=== PATIENT | female | born 2000 | race African-American/Black ===

== ENCOUNTER 2020-09-23 22:53 | Emergency (ER) | payer OTHER, SELFPAY ==
[2020-09-23 22:57] VITALS: BP 164/96; PULSE 128; RESP 20; TEMP 35.9; O2SAT 99; BMI 30.9
--- NOTE | 2020-09-23 23:19 | XR_ITS ---
EXAMINATION: XR SHOULDER, LEFT CLINICAL INFORMATION: Left shoulder pain. Fall. COMPARISON: None TECHNIQUE: Four views of the left shoulder. FINDINGS: The bones and soft tissues are normal. No fracture. Glenohumeral and acromioclavicular alignment is anatomic with normal joint space. No abnormal soft tissue calcifications. XR/XR shoulder LT min 2V IMPRESSION: Normal left shoulder.
--- NOTE | 2020-09-23 23:30 | ED_ITS ---
HPI - Extremity Problem General Chief complaint: Extremity Injury, Upper Stated complaint: Shoulder Pain Time Seen by Provider: 09/23/20 23:07 Source: patient Mode of arrival: ambulatory Limitations: no limitations History of Present Illness HPI Narrative: Patient comes to the emergency room complaining of left-sided shoulder pain. Patient states 3 nights ago patient was walking her dog, the dog pulled her left arm hard and the patient tumbled. Patient states that since then the shoulder has become more are sored Related Data Allergies Allergy/AdvReac Type Severity Reaction Status Date / Time No Known Allergies Allergy Unverified 07/28/20 19:50 [No Known Allergies*] Review of Systems Review of Systems: Constitutional : No Weight loss, No Fever, No Chills, No Night Sweats, No Fatigue, No Malaise ENT/Mouth : No Hearing loss, No Ear Pain, No Nasal Congestion, No Sinus Pain, No Hoarseness, No sore throat, No Rhinorrhea, No Swallowing Difficulty Eyes: No Eye Pain, No Swelling, No Redness, No Foreign Body, No Discharge, No Vision Changes Cardiovascular : No Chest Pain, No SOB, No Dyspnea on Exertion, No Orthopnea, No Edema, No Palpitations Respiratory : No Cough, No Sputum, No Wheezing, No Smoke Exposure, No Dyspnea Gastrointestinal : No Nausea, No Vomiting, No Diarrhea, No Constipation, No abdominal Pain, No Hematochezia, No Melena Genitourinary : no irregular bleeding, No Dysuria, No Urinary Frequency, No Hematuria, No Urinary Incontinence, No Urgency, No Flank Pain, No Urinary Flow Changes, No Hesitancy Musculoskeletal : Patient complaining of left shoulder pain Skin : No Skin Lesions, No rash Neuro : No Weakness, No Numbness, No Paresthesias, No Loss of Consciousness, No Dizziness, No Headache Psych : No Anxiety/Panic, No Depression, No SI/HI/AH/VH, No Social Issues, Heme/Lymph: No Bruising, No Bleeding,No Lymphadenopathy Endocrine : No Polyuria, No Polydipsia, No Temperature Intolerance PMF Past Medical History Medical History No known health problems Social History Social History Advance Directives: No Advance Directives Information Provided: No Physical Exam Vital Signs: Vital Signs: Last Vital Signs Temp 96.6 F L 09/23/20 22:57 Pulse 128 H 09/23/20 22:57 Resp 20 09/23/20 22:57 BP 164/96 H 09/23/20 22:57 Pulse Ox 99 09/23/20 22:57 Body Mass Index 30.9 Appearance: Alert. Oriented X3. No acute distress. Eyes: Pupils equal, round and reactive to light. ENT: Pharynx normal. Neck: Normal inspection. Neck supple. No lymph nodes noted. No crepitus CVS: Normal heart rate and rhythm. Pulses normal. Normal S1 and S2 Respiratory: No respiratory distress. Breath sounds normal. No Wheezing. No rales Abdomen: Soft and nontender. No rigidity. No distention. good BS x4 Skin: Skin warm and dry. Normal skin color. Normal skin turgor. Extremities: No lower extremity edema. Patient is able to abduct the left arm to approximately 45 degrees, then it starts hurting and she can no longer abduct, patient complaining to pain to palpation over the shoulder and on her back and suprascapular area Neuro: Oriented X 3. No motor deficit. No sensory deficit. Moving all ext ermities. No slurred speech. Course Course Course Narrative: I discussed with the patient her x-ray, patient will likely need an MRI if she has no symptomatic improvement to rule out tendon tear versus rupture. At this time, rupture is not suspected. However patient will need advanced imaging. Patient does not have a primary care physician yet, therefore she will be given the phone number for Orthopedics MDM - Extremity (Nontraumatic) Imaging Data Shoulder x-ray: Radiologist's impression: The bones and soft tissues are normal. No fracture. Glenohumeral and acromioclavicular alignment is anatomic with normal joint space. No abnormal soft tissue calcifications. XR/XR shoulder LT min 2V IMPRESSION: Normal left shoulder. Discharge Plan Discharge Clinical Impression: Injury of shoulder, left, Other sprain of left shoulder joint, initial encounter Patient Disposition: Home, Self-Care Instructions: Rotator Cuff Injury (ED), Rotator Cuff Injury Exercises (DC) Additional Instructions: Please follow-up with orthopedics. Please follow-up with your primary care physician tomorrow. If you have any worsening or new symptoms, please return to the emergency room or call 911 Referrals: Robert Blackwood MD [Physician] - 2 days
[2020-09-23] MEDS: Ketorolac Tromethamine 60 MG/2 ML VIAL IM (23:44)
[2020-09-23 23:49] VITALS: BP 151/80; PULSE 116; RESP 16; O2SAT 99
== END 2020-09-23 23:56 | disposition home or self-care (01) ==
PROVIDERS: Emergency Provider Emergency Medicine
DX: S43.402A Unspecified sprain of left shoulder joint, initial encounter (principal); M25.512 Pain in left shoulder; X50.9XXA Other and unspecified overexertion or strenuous movements or postures, initial encounter; Y93.K1 Activity, walking an animal; Y92.480 Sidewalk as the place of occurrence of the external cause; Y99.9 Unspecified external cause status
CPT/HCPCS: 73030; 96372; 99284; J1885

== ENCOUNTER 2020-10-18 17:33 | Emergency (ER) | payer MEDICAID, SELFPAY ==
[2020-10-18 17:54] VITALS: BP 151/77; PULSE 118; RESP 18; TEMP 36.9; O2SAT 99; BMI 31.8
[2020-10-18 19:53] VITALS: BP 128/81; PULSE 109; RESP 18; TEMP 36.8; O2SAT 97
--- NOTE | 2020-10-18 19:57 | ED_ITS ---
HPI - Abdominal Pain General Chief Complaint: Abdominal Pain Stated Complaint: ABDOMINAL PAIN,VOMITING Time Seen by Provider: 10/18/20 19:47 Source: patient Mode of arrival: ambulatory Limitations: no limitations History of Present Illness HPI narrative: Patient presents to the ED for left lower quadrant abdominal pain, nausea, vomiting, and diarrhea. Patient states having symptoms for the past 2 days. Patient denies any vaginal discharge, vaginal bleeding, vaginal lesions, flank pain, dysuria, hematuria, fever, or chills. MD elicited complaint: abdominal pain Related Data Previous Rx's Medication Instructions Recorded cefpodoxime 100 mg PO Q12H #14 tab 10/19/20 naproxen 500 mg PO BID PRN #20 tab 10/19/20 Allergies Allergy/AdvReac Type Severity Reaction Status Date / Time No Known Allergies Allergy Unverified 07/28/20 19:50 [No Known Allergies*] Review of Systems Review of Systems Yes all other systems are reviewed and are negative Constitutional: Reports as per HPI and Reports no additional constitutional c omplaints Eyes: Reports as per HPI and Reports no additional eye complaints Reports system reviewed and no additional complaints, except as documented and Reports as per HPI Cardiovascular: Reports as per HPI and Reports no additional cardiovascular complaints Respiratory: Reports as per HPI and Reports no additional respiratory complaints Gastrointestinal: Reports as per HPI, Reports no additional gastrointestinal complaints, Reports abdominal pain, Reports diarrhea, Reports nausea and Reports vomiting Genitourinary: Reports no additional female genitourinary complaints, Reports as per HPI, Denies abnormal vaginal bleeding, Denies dysuria, Denies pelvic pain, Denies urinary incontinence, Denies urinary hesitancy and Denies urinary urgency Musculoskeletal: Reports no additional musculoskeletal complaints and Reports as per HPI Reports system reviewed and no additional complaints, except as documented and Reports as per HPI Psychiatric: Reports no additional psychiatric complaints and Reports as per HPI Physical Exam Vital Signs: Vital Signs: Last Vital Signs Temp 99.1 F 10/18/20 21:56 Pulse 120 H 10/18/20 21:56 Resp 18 10/18/20 21:56 BP 126/93 H 10/18/20 21:56 Pulse Ox 100 10/18/20 21:56 Body Mass Index 31.8 Const: General: cooperative, healthy appearing, comfortable, no acute distress, well developed, alert, awake and Physically active Orientation/consciousness: patient oriented x3 HENMT: Head: Yes normal to inspection and Yes No palpable skull fracture present Eyes: General: appearance normal, both eyes and all related structures Neck: Neck: Yes normal visual inspection, Yes full ROM, Yes no lymphadenopathy, Yes no meningeal signs, Yes trachea midline, Yes supple and No tender Chest: Chest palpation & inspection: normal inspection of the chest and normal palpation of entire chest wall Resp: Effort & Inspection: normal respiratory effort and able to speak in complete sentences Auscultation: clear to auscultation bilaterally Cardio: Jugular venous distension: no JVD Heart sounds: S1 normal heart sound present and S2 normal heart sound present GI: Inspection: Yes normal to inspection and No abdominal wall ecchymosis Palpation (GI): Soft to palpation, Firmness to palpation present (GI), Tenderness to palpation present (GI) in the LLQ, no guarding and not rigid : General: No CVA tenderness and Yes no CVA tenderness Back/Spine/Pelvis: Back: no CVA tenderness, No CVA tenderness and No back tenderness Skin: General skin exam: no rashes or lesions noted Neuro: General: patient oriented x3, gait normal, no meningeal signs and CN's II-XI intact bilaterally Cranial nerves: Yes CN's II-XII intact bilaterally Extrem: General: Yes normal to inspection and Yes full ROM Psych: Appearance: grossly normal, well kempt and not disheveled Course Course Course Narrative: patient will have blood work, , IV fluids, Zofran, and urinalysis to rule out . Patient also be soft COVID-19 this may be viral sequela. Reevaluation(s) Reevaluation #1: [place] [id number] [address] was sent for [address] scan to rule out any abdominal etiology. Unlikely pyelonephritis. Patient does not have any flank pain, fever, or chills. Patient has only left lower quadrant pain. UA positive for nitrates but negative for white blood cell or red blood cell count. Time: 22:34 Reevaluation #2: Patient's lactic acid is negative. Patient's CT scan came back normal. Patient is not toxic appearing. Patient is watching television and playing on phone. Patient does not have any flank pain to indicate pyeloneph ritis. Patient is safe for discharge. Patient will be discharged with antibiotics. COVID swab take about 4 days to come back. Patient does not need admission. Diagnosis is Gastroenteritis. Very unlikely UTI due to negative for WBC or RBCs and patient not having urinary symptoms. Due to nitrate in UA patient will be discharged with cefpodizme. history and physical exam does not indicate pyelonephritis. Time: 00:26 MDM - Abdominal Pain MDM Narrative Medical decision making narrative: UTI. Gastroenteritis Lab Data Result diagrams: 10/18/20 20:43 10/18/20 20:43 Labs: Lab Results 10/18/20 10/18/20 12 Range/Units 20:43 20:43 20:43 WBC 16.2 H (4.8-10.8) X10*3/uL RBC 5.11 (4.20-5.50) X10*6/uL Hgb 11.8 L (12.0-16.0) g/dl Hct 37.0 (37-47) % MCV 72.4 L (80-98) fL MCH 23.1 L (27.0-33.0) pg MCHC 31.9 (31.0-35.0) g/dl RDW 15.7 (11.0-16.0) % Plt Count 274 (160-400) X10*3/uL MPV 10.9 (9.4-12.3) fL Immature Gran % (Auto) 0.2 (0.0-0.4) % Neut % (Auto) 81.1 H (45-73) % Lymph % (Auto) 12.4 L (20-40) % [place] % (Auto) 6.0 (2-11) % Eos % (Auto) 0.1 (0-4) % Baso % (Auto) 0.2 (0-2) % Lymph # (Auto) 2.0 (1.2-4.9) X10*3/uL [place] # (Auto) 1.0 (0.1-1.2) X10*3/uL Eos # (Auto) 0.0 (0.0-0.4) X10*3/uL Baso # (Auto) 0.0 (0.0-0.2) X10*3/uL Abs Immat Gran (auto) 0.04 H (0.00-0.03) X10*3/uL Absolute Neuts (auto) 13.1 H (2.0-8.3) X10*3/uL Absolute Nucleated RBC 0.000 (0.0-0.012) X10*3/uL Nucleated RBC % (auto) 0.0 (0.0-0.2) /100WBC PT 15.4 H (10.8-13.0) SEC INR 1.3 H (0.9-1.1) APTT (24.1-38.0) SEC Sodium 137 (135-145) mmol/L Potassium 3.9 (3.3-5.1) mmol/l Chloride 103 (96-108) mmol/L Carbon Dioxide 25 (22-29) mmol/L Anion Gap 13 (12-20) BUN 7 L (9-16) mg/dL Creatinine 0.49 L (0.5-1.4) mg/dL Estim Creat Clear Calc 182.2 Estimated GFR > 60 Random Glucose 91 (60-115) mg/dL Lactic Acid (0.5-2.0) mmol/L Calcium 9.2 (8.4-10.2) mg/dL Ferritin (10-122) ng/mL Total Bilirubin 0.9 (0.0-1.0) mg/dL Direct Bilirubin 0.5 (0.0-0.5) mg/dL AST 29 (5-31) U/L ALT 39 H (0-31) U/L Alkaline Phosphatase 207 H (39-117) U/L Lactate Dehydrogenase (122-220) U/L Total Protein 7.4 (6.5-8.0) g/dL Albumin 4.2 (3.5-5.0) g/dL Procalcitonin ng/mL Beta HCG, Quant < 2 mIU/mL Urine Color Urine Appearance Urine pH (5.0-8.0) Ur Specific [place] (1.005-1.025) Urine Protein (NEG-TRACE) MG/DL Urine Glucose (UA) (NEG) MG/DL Urine Ketones (NEG) MG/DL Urine Blood (NEG) Urine Nitrite (NEG) Ur Leukocyte Esterase (NEG) Urine RBC (0) /HPF Urine WBC (0-4) /HPF Ur Squamous Epith Cells /LPF Urine Bacteria /LPF 10/18/20 10/18/20 10/18/20 Range/Units 20:43 20:43 20:43 WBC (4.8-10.8) X10*3/uL RBC (4.20-5.50) X10*6/uL Hgb (12.0-16.0) g/dl Hct (37-47) % MCV (80-98) fL MCH (27.0-33.0) pg MCHC (31.0-35.0) g/dl RDW (11.0-16.0) % Plt Count (160-400) X10*3/uL MPV (9.4-12.3) fL Immature Gran % (Auto) (0.0-0.4) % Neut % (Auto) (45-73) % Lymph % (Auto) (20-40) % [place] % (Auto) (2-11) % Eos % (Auto) (0-4) % Baso % (Auto) (0-2) % Lymph # (Auto) (1.2-4.9) X10*3/uL [place] # (Auto) (0.1-1.2) X10*3/uL Eos # (Auto) (0.0-0.4) X10*3/uL Baso # (Auto) (0.0-0.2) X10*3/uL Abs Immat Gran (auto) (0.00-0.03) X10*3/uL Absolute Neuts (auto) (2.0-8.3) X10*3/uL Absolute Nucleated RBC (0.0-0.012) X10*3/uL Nucleated RBC % (auto) (0.0-0.2) /100WBC PT (10.8-13.0) SEC INR (0.9-1.1) APTT 38.1 H (24.1-38.0) SEC Sodium (135-145) mmol/L Potassium (3.3-5.1) mmol/l Chloride (96-108) mmol/L Carbon Dioxide (22-29) mmol/L Anion Gap (12-20) BUN (9-16) mg/dL Creatinine (0.5-1.4) mg/dL Estim Creat Clear Calc Estimated GFR Random Glucose (60-115) mg/dL Lactic Acid (0.5-2.0) mmol/L Calcium (8.4-10.2) mg/dL Ferritin 185 H (10-122) ng/mL Total Bilirubin (0.0-1.0) mg/dL Direct Bilirubin (0.0-0.5) mg/dL AST (5-31) U/L ALT (0-31) U/L Alkaline Phosphatase (39-117) U/L Lactate Dehydrogenase 224 H (122-220) U/L Total Protein (6.5-8.0) g/dL Albumin (3.5-5.0) g/dL Procalcitonin < 0.02 ng/mL Beta HCG, Quant mIU/mL Urine Color Urine Appearance Urine pH (5.0-8.0) Ur Specific [place] (1.005-1.025) Urine Protein (NEG-TRACE) MG/DL Urine Glucose (UA) (NEG) MG/DL Urine Ketones (NEG) MG/DL Urine Blood (NEG) Urine Nitrite (NEG) Ur Leukocyte Esterase (NEG) Urine RBC (0) /HPF Urine WBC (0-4) /HPF Ur Squamous Epith Cells /LPF Urine Bacteria /LPF 10/18/20 10/18/20 Range/Units 20:50 22:09 WBC (4.8-10.8) X10*3/uL RBC (4.20-5.50) X10*6/uL Hgb (12.0-16.0) g/dl Hct (37-47) % MCV (80-98) fL MCH (27.0-33.0) pg MCHC (31.0-35.0) g/dl RDW (11.0-16.0) % Plt Count (160-400) X10*3/uL MPV (9.4-12.3) fL Immature Gran % (Auto) (0.0-0.4) % Neut % (Auto) (45-73) % Lymph % (Auto) (20-40) % [place] % (Auto) (2-11) % Eos % (Auto) (0-4) % Baso % (Auto) (0-2) % Lymph # (Auto) (1.2-4.9) X10*3/uL [place] # (Auto) (0.1-1.2) X10*3/uL Eos # (Auto) (0.0-0.4) X10*3/uL Baso # (Auto) (0.0-0.2) X10*3/uL Abs Immat Gran (auto) (0.00-0.03) X10*3/uL Absolute Neuts (auto) (2.0-8.3) X10*3/uL Absolute Nucleated RBC (0.0-0.012) X10*3/uL Nucleated RBC % (auto) (0.0-0.2) /100WBC PT (10.8-13.0) SEC INR (0.9-1.1) APTT (24.1-38.0) SEC Sodium (135-145) mmol/L Potassium (3.3-5.1) mmol/l Chloride (96-108) mmol/L Carbon Dioxide (22-29) mmol/L Anion Gap (12-20) BUN (9-16) mg/dL Creatinine (0.5-1.4) mg/dL Estim Creat Clear Calc Estimated GFR Random Glucose (60-115) mg/dL Lactic Acid 1.0 (0.5-2.0) mmol/L Calcium (8.4-10.2) mg/dL Ferritin (10-122) ng/mL Total Bilirubin (0.0-1.0) mg/dL Direct Bilirubin (0.0-0.5) mg/dL AST (5-31) U/L ALT (0-31) U/L Alkaline Phosphatase (39-117) U/L Lactate Dehydrogenase (122-220) U/L Total Protein (6.5-8.0) g/dL Albumin (3.5-5.0) g/dL Procalcitonin ng/mL Beta HCG, Quant mIU/mL Urine Color YELLOW Urine Appearance CLEAR Urine pH 6.5 (5.0-8.0) Ur Specific [place] 1.025 (1.005-1.025) Urine Protein TRACE (NEG-TRACE) MG/DL Urine Glucose (UA) NEG (NEG) MG/DL Urine Ketones >=80 (NEG) MG/DL Urine Blood TRACE (NEG) Urine Nitrite POS H (NEG) Ur Leukocyte Esterase NEG (NEG) Urine RBC 0-2 (0) /HPF Urine WBC 0 (0-4) /HPF Ur Squamous Epith Cells 1+ /LPF Urine Bacteria TRACE /LPF Discharge Plan Discharge Clinical Impression: Gastroenteritis, UTI (urinary tract infection) Patient Disposition: Home, Self-Care Instructions: Urinary Tract Infection in Women (ED), Gastroenteritis (ED) Additional Instructions: return to the ED immediately for worsening abdominal pain, flank pain, fever, chills, nausea, vomiting, or any other concerning symptoms. Please follow-up with the PCP. COVID test come back positive, recommend 14 days self-isolation. Prescriptions: New naproxen 500 mg tablet 500 mg PO BID PRN (Reason: pain) Qty: 20 RF: 0 cefpodoxime 100 mg tablet 100 mg PO Q12H Qty: 14 RF: 0 Stand Alone Forms: Work/School Release Interventions: ED Discharge Assessment Last Done: 10/19/20 00:50 Discharge Date/Time: 10/19/20 00:51 Print Language: [place]an COUNTS INCLUDE 234 BEDS AT THE [facility] Past Medical History Medical History No known health problems Social History Social History Alcohol intake: never Smoking Status: Never smoker Use of substances other than those prescribed or required for medical reasons: No Substance Use Type: Marijuana Advance Directives: No Advance Directives Information Provided: No
[2020-10-18 20:33] VITALS: BP 125/62; PULSE 114; RESP 16; TEMP 37.2; O2SAT 98
--- NOTE | 2020-10-18 20:34 | PC.NURSE ---
P t appears well. No active vomiting. describes vomiting x 4-5 today since 3am. Skin pwd. steady on feet to br. uses contraception, moist mm. abd is tender in LLQ. Normal BM yesterday.
[2020-10-18] MEDS: ondansetron HCL 4 MG/2 ML VIAL IVPUSH (20:50)
[2020-10-18] MEDS: 0.9 % Sodium Chloride 1,000 ML 999 ML IVCONT (20:50)
[2020-10-18 20:53] LABS: Basophils Percent Auto 0.2 % (0-2); Eosinophils Percent Auto 0.1 % (0-4); Hemoglobin 11.8 g/dl (12.0-16.0); Imm Gran Abs Auto 0.04 X10*3/uL (0.00-0.03); Imm Gran Pct Auto 0.2 % (0.0-0.4); Lymphocytes Percent Auto 12.4 % (20-40); Mean Corpuscular HGB Conc 31.9 g/dl (31.0-35.0); Mean Corpuscular Hemoglobin 23.1 pg (27.0-33.0); Mean Corpuscular Volume 72.4 fL (80-98); Mean Platelet Volume 10.9 fL (9.4-12.3); Neutrophils Absolute Auto 13.1 X10*3/uL (2.0-8.3); Neutrophils Percent Auto 81.1 % (45-73); Platelet Count 274 X10*3/uL (160-400); Red Blood Count 5.11 X10*6/uL (4.20-5.50); Red Cell Distribution Width 15.7 % (11.0-16.0); White Blood Count 16.2 X10*3/uL (4.8-10.8)
[2020-10-18 20:54] LABS: MANUAL DIFF FLAG NO
[2020-10-18 20:59] LABS: Glucose Urine UA NEG (NEG); Leukocyte Esterase Urine NEG (NEG); Nitrite Urine POS (NEG); PH 6.5 (5.0-8.0); Specific Gravity - Urine 1.025 (1.005-1.025); Urine Blood TRACE (NEG); Urine Ketones >=80 MG/DL (NEG); Urine Protein TRACE MG/DL (NEG-TRACE)
[2020-10-18 21:01] LABS: Appearance Urine CLEAR; Color Urine YELLOW
[2020-10-18 21:02] LABS: INTERNATIONAL NORM RATIO 1.3 (0.9-1.1); Prothrombin Time 15.4 SEC (10.8-13.0)
[2020-10-18 21:04] LABS: Partial Thromboplastin Time 38.1 SEC (24.1-38.0)
[2020-10-18 21:08] LABS: Bacteria Urine TRACE /LPF; RBC Urine 0-2 /HPF (0); Squamous Epithelial Cell Urine 1+ /LPF; WBC Urine 0 /HPF (0-4)
[2020-10-18 21:24] LABS: Lactate Dehydrogenase 224 U/L (122-220)
[2020-10-18 21:25] LABS: Alanine Aminotransferase 39 U/L (0-31); Albumin Level 4.2 g/dL (3.5-5.0); Alkaline Phosphatase 207 U/L (39-117); Anion Gap 13 (12-20); Aspartate Amino Transferase 29 U/L (5-31); Bilirubin Direct 0.5 mg/dL (0.0-0.5); Bilirubin Total 0.9 mg/dL (0.0-1.0); Blood Urea Nitrogen 7 mg/dL (9-16); Calcium 9.2 mg/dL (8.4-10.2); Carbon Dioxide 25 mmol/L (22-29); Chloride 103 mmol/L (96-108); Creatinine Clr Calc Pharmacy 182.2; Estimated Glomerular Filt Rate > 60; Glucose Random 91 mg/dL (60-115); Potassium 3.9 mmol/l (3.3-5.1); Sodium 137 mmol/L (135-145); Total Protein 7.4 g/dL (6.5-8.0)
[2020-10-18 21:33] LABS: HCG Quantitative < 2 mIU/mL
--- NOTE | 2020-10-18 21:42 | CT_ITS ---
EXAMINATION: CT ABDOMEN AND PELVIS WITH CONTRAST CLINICAL INFORMATION: Left lower quadrant pain diverticulitis COMPARISON: None TECHNIQUE: Multidetector volumetric images were obtained from the superior aspect of the liver through the pubic symphysis following administration 85 mL of Omnipaque 350 intravenous contrast. Sagittal and coronal reformatted images were obtained on the technologist's workstation. Oral contrast: No This CT examination was performed using dose optimization techniques as appropriate, variously including the following: *Automated exposure control *Adjustment of mA and/or kV according to patient size (this includes techniques or standardized protocols for targeted exams where dose is matched to indication/reason for exam; i.e. extremities or head) *Use of iterative reconstruction technique DLP: 681 mGy-cm FINDINGS: LUNG BASES: The visualized lung bases are unremarkable. LIVER, GALLBLADDER, AND BILIARY TREE: The liver is normal in size, shape, and attenuation. No focal hepatic lesion or biliary ductal dilatation is present. The gallbladder is unremarkable with no evidence of radiopaque gallstones, gallbladder wall thickening, or obvious pericholecystic inflammatory changes. PANCREAS: Unremarkable. SPLEEN: Unremarkable. ADRENAL GLANDS: Unremarkable. KIDNEYS AND URETERS: The kidneys are normal in size, shape, and attenuation. No hydronephrosis, hydroureter, or calculi seen. No perinephric stranding. BLADDER: Unremarkable. GASTROINTESTINAL TRACT: The small and large bowel are unremarkable. The appendix is unremarkable. ABDOMINAL WALL: No significant hernia is appreciated. LYMPH NODES: Normal. VASCULAR: Unremarkable. PELVIC VISCERA: Unremarkable. OSSEOUS STRUCTURES: Unremarkable. CT/CT abdomen pelvis w con IMPRESSION: Normal exam. No evidence for diverticulitis.
[2020-10-18] MEDS: 0.9 % Sodium Chloride 1,000 ML 1000 ML IVCONT (21:55)
--- NOTE | 2020-10-18 21:55 | PC.NURSE ---
reports feeling better. nausea is improved
[2020-10-18 21:56] VITALS: BP 126/93; PULSE 120; RESP 18; TEMP 37.3; O2SAT 100
[2020-10-18 22:06] LABS: Procalcitonin < 0.02 ng/mL
[2020-10-18] MEDS: iohexoL 350 MG/ML 100 ML INFUS..BTL IV (22:22)
[2020-10-18] MEDS: cefTRIAXone sodium 1 GM in 0.9 % Sodium Chloride 50 ML IV (22:53)
[2020-10-19 00:49] LABS: Ferritin 185 ng/mL (10-122)
== END 2020-10-19 00:51 | disposition home or self-care (01) ==
PROVIDERS: Physician Assistant; Emergency Provider Internal Medicine
DX: K52.9 Noninfective gastroenteritis and colitis, unspecified (principal); N39.0 Urinary tract infection, site not specified; F12.90 Cannabis use, unspecified, uncomplicated; Z20.828 Contact with and (suspected) exposure to other viral communicable diseases
CPT/HCPCS: 36415; 74177; 80053; 80076; 81001; 82248; 82728; 83605; 83615; 84145; 84702; 85025; 85610; 85730; 87040; 87086; 87088; 87186; 96361; 96365; 96374; 99284; J0696; J2405; Q9967; U0003

== ENCOUNTER 2020-12-28 03:51 | Emergency (ER) | payer MEDICAID, SELFPAY ==
[2020-12-28 04:40] VITALS: BP 147/87; PULSE 104; RESP 16; TEMP 36.5; O2SAT 98
--- NOTE | 2020-12-28 04:45 | ED.URI ---
HPI - URI/Sore Throat General Chief Complaint: Upper Respiratory Symptoms Stated Complaint: SORE THROAT Time Seen by Provider: 12/28/20 04:37 Source: patient Mode of arrival: ambulatory Limitations: no limitations History of Present Illness HPI Narrative: 20 yo female with sore throat x 3 days, can swallow, handling secretions no other complaints MD elicited complaint: sore throat Onset (ago): day(s) (3) Consistency: constant Severity: moderate Able to tolerate fluids by mouth: Yes Exacerbating factors: swallowing Relieving factors: nothing Associated symptoms: voice changes Treatments prior to arrival: none Related Data Previous Rx's Medication Instructions Recorded cefpodoxime 100 mg PO Q12H #14 tab 10/19/20 naproxen 500 mg PO BID PRN #20 tab 10/19/20 amoxicillin 500 mg PO BID 7 Days #14 cap 12/28/20 Allergies Allergy/AdvReac Type Severity Reaction Status Date / Time No Known Allergies Allergy Verified 12/28/20 04:45 [No Known Allergies*] Review of Systems Review of Systems: Constitutional : No Weight loss, No Fever, No Chills ENT/Mouth : pos sore throat, No Rhinorrhea Eyes: No Eye Pain, No Swelling, No Redness Cardiovascular : No Chest Pain, No SOB Respiratory : No Cough, No Sputum, No Wheezing Gastrointestinal : No Nausea, No Vomiting, No Diarrhea, No Constipation, No abdominal Pain Skin : No Skin Lesions, No rash Neuro : No Weakness, No Numbness, No Dizziness, No Headache Psych : No Anxiety/Panic, No Depression Heme/Lymph: No Bruising, No Bleeding, pos Lymphadenopathy PMFSH Past Medical History Attestation statement: The following information was validated with the patient. Medical History No known health problems Social History Social History Alcohol intake: never Smoking Status: Never smoker Substance Use Type: Marijuana Advance Directives: No Physical Exam Vital Signs: Vital Signs: Last Vital Signs Temp 97.7 F 12/28/20 04:40 Pulse 104 H 12/28/20 04:40 Resp 16 12/28/20 04:40 BP 147/87 H 12/28/20 04:40 Pulse Ox 98 12/28/20 04:40 Body Mass Index 30.0 Appearance: Alert. Oriented X3. No acute distress. Eyes: Pupils equal, round and reactive to light. ENT: Pharynx erythema with moderate tonsil swelling, mild exudates, tolerating secretions, bilateral anterior cervical LAD - moderate bilateral Neck: Normal inspection. Neck supple. CVS: Normal heart rate and rhythm. Pulses normal. Respiratory: No respiratory distress. Breath sounds normal. Abdomen: Soft and nontender. Skin: Skin warm and dry. Normal skin color. Normal skin turgor. Extremities: No lower extremity edema. No calf ttp Neuro: Oriented X 3. No motor deficit. No sensory deficit. 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, able to swallow, tonsils are not touching - will given NSAIDs, dexamethasone and start on amoxicillin Lab Data Labs: Lab Results 12/28/20 Range/Units 04:44 COVID-19 (LINDA) Negative (Negative) COVID-19 Clin Com See Note Discharge Plan Discharge Clinical Impression: Acute tonsillitis Qualifiers: Pharyngitis/tonsillitis etiology: unspecified etiology Qualified Code(s): J03.90 - Acute tonsillitis, unspecified Patient Disposition: Home, Self-Care Instructions: Tonsillitis (ED) Additional Instructions: return to ED for any worsening symptoms or concerns Prescriptions: New amoxicillin 500 mg capsule 500 mg PO BID 7 Days Qty: 14 RF: 0 No Action naproxen 500 mg tablet 500 mg PO BID PRN (Reason: pain) Qty: 20 RF: 0 cefpodoxime 100 mg tablet 100 mg PO Q12H Qty: 14 RF: 0 Referrals: [facility] [Primary Care Provider] - 2 days (if not better)
[2020-12-28] MEDS: dexAMETHasone sod phosphate 4 MG/ML VIAL 10 MG IV (04:50)
[2020-12-28] MEDS: Amoxicillin 500 MG CAPSULE PO (04:50)
[2020-12-28] MEDS: Ibuprofen Oral Susp 200 MG/10 ML ORAL.SUSP 600 MG PO (04:51)
--- NOTE | 2020-12-28 04:53 | PC.NURSE ---
Swabs obtained by and sent for analysis. Pt medicated per MAR. Continue to monitor.
[2020-12-28 05:08] LABS: COVID-19 Test Negative (Negative); IDNOW Serial# 9DD0AD1C
== END 2020-12-28 05:48 | disposition home or self-care (01) ==
PROVIDERS: Emergency Provider Emergency Medicine
DX: J03.90 Acute tonsillitis, unspecified (principal); Z20.822 Contact with and (suspected) exposure to COVID-19; Z79.899 Other long term (current) drug therapy
CPT/HCPCS: 36415; 87071; 87147; 87635; 87880; 99283; J1100

== ENCOUNTER 2021-02-15 07:33 | Emergency (ER) | payer OTHER, SELFPAY ==
--- NOTE | ~2021-02-15 | US_ITS ---
EXAMINATION: US OBSTETRICAL ULTRASOUND CLINICAL INFORMATION: Positive test. Last menstrual period January 08, 2021 with estimated gestational age of 5 weeks 3 days. Left lower quadrant pain. Rule out cyst/ectopic. COMPARISON: None. LMP: January 08, 2021. Gestational age by maternal dates is 5 weeks 3 days. Estimated date of delivery by maternal dates is October 15, 2021. TECHNIQUE: Transabdominal and transvaginal OB ultrasound FINDINGS: There is what appears to be a small gestational sac present measuring 2 x 2 x 2 mm in size which would correspond to a gestational age of 4 weeks 4 days. No yolk sac is identified. No pole is seen. MATERNAL ADNEXA: The right maternal ovary measures 4.1 x 2.4 x 1.9 cm. Corpus luteal cyst is seen measuring 1.5 x 1.3 x 1.8 cm in size. The left maternal ovary measures 4.0 x 2.6 x 1.8 cm. There is a simple cyst measuring 2.2 x 1.6 x 1.8 cm in size. There is no significant maternal adnexal mass. There is a small amount of free fluid within the cul-de-sac. US/US OB <= 14 weeks fetus IMPRESSION: Question small 2 mm gestational sac which would correspond with a gestational age of 4 weeks 4 days. No suspicious adnexal mass.
--- NOTE | ~2021-02-15 | US_ITS ---
EXAMINATION: US OBSTETRICAL ULTRASOUND CLINICAL INFORMATION: Positive test. Last menstrual period January 08, 2021 with estimated gestational age of 5 weeks 3 days. Left lower quadrant pain. Rule out cyst/ectopic. COMPARISON: None. LMP: January 08, 2021. Gestational age by maternal dates is 5 weeks 3 days. Estimated date of delivery by maternal dates is October 15, 2021. TECHNIQUE: Transabdominal and transvaginal OB ultrasound FINDINGS: There is what appears to be a small gestational sac present measuring 2 x 2 x 2 mm in size which would correspond to a gestational age of 4 weeks 4 days. No yolk sac is identified. No pole is seen. MATERNAL ADNEXA: The right maternal ovary measures 4.1 x 2.4 x 1.9 cm. Corpus luteal cyst is seen measuring 1.5 x 1.3 x 1.8 cm in size. The left maternal ovary measures 4.0 x 2.6 x 1.8 cm. There is a simple cyst measuring 2.2 x 1.6 x 1.8 cm in size. There is no significant maternal adnexal mass. There is a small amount of free fluid within the cul-de-sac. US/US OB transvaginal IMPRESSION: Question small 2 mm gestational sac which would correspond with a gestational age of 4 weeks 4 days. No suspicious adnexal mass.
[2021-02-15 07:41] VITALS: BP 152/92; PULSE 127; RESP 16; TEMP 37; O2SAT 99; BMI 29.7
--- NOTE | 2021-02-15 08:53 | PC.NURSE ---
pt states that she found out that she was yesterday. she did 3 home test. c/o l side 06/20 abd pain with nausea. pt seen by md aware of plan of care.
--- NOTE | 2021-02-15 08:55 | PC.NURSE ---
pt states lmp was 01/08/21
--- NOTE | 2021-02-15 09:00 | ED_ITS ---
HPI - General Adult General Chief complaint: Abdominal Pain Stated complaint: abd pain, Time Seen by Provider: 02/15/21 08:34 Source: patient Mode of arrival: ambulatory Limitations: no limitations History of Present Illness HPI narrative: 20-year-old female who presents emergency department for evaluation of possible and abdominal pain. The patient states that her last menstrual period was on January 08, 2021 and she took a home test which was positive. The patient states that she woke up this morning and had a slight, sharp pain located in her left lower quadrant of her abdomen. She went to work and the pain got worse. She states the pain is intermittent and is now 8/10. She states she has a history of ovarian cyst in the pain feels similar to her ovarian cyst that she has had in the past. She states that yesterday she did have a fever of 102? F. she has had urinary frequency with no dysuria. She denied cough, chest pain, shortness of breath, dyspnea on exertion, nausea, vomiting or diarrhea. The patient works as a [employer]. She states that she headache COVID-19 infection early last year. She has not received a vaccination for COVID-19. Related Data Previous Rx's Medication Instructions Recorded cefpodoxime 100 mg PO Q12H #14 tab 10/19/20 naproxen 500 mg PO BID PRN #20 tab 10/19/20 amoxicillin 500 mg PO BID 7 Days #14 cap 12/28/20 Allergies Allergy/AdvReac Type Severity Reaction Status Date / Time No Known Allergies Allergy Verified 12/28/20 04:45 [No Known Allergies*] Review of Systems Review of Systems: Yes all other systems are reviewed and are negative [facility] Past Medical History [facility] Narrative: The patient has no past medical history, no past surgical history. She denies tobacco and alcohol use. She does smoke marijuana daily. Medical History No known health problems Social History Social History Alcohol intake: never Smoking Status: Never smoker Use of substances other than those prescribed or required for medical reasons: Yes Substance Use Type: Marijuana Last Used Substance: Hours (ago) Advance Directives: Yes Advance Directives Information Provided: Yes Advance Directives on File: No Physical Exam Vital Signs: Vital Signs: Last Vital Signs Temp 98.6 F 02/15/21 07:41 Pulse 127 H 02/15/21 07:41 Resp 16 02/15/21 07:41 BP 152/92 H 02/15/21 07:41 Pulse Ox 99 02/15/21 07:41 Body Mass Index 29.7 Const: General: cooperative and healthy appearing Orientation/consciousness: oriented to person and oriented to place Limitations: no limitations HENMT: Head: Yes normal to inspection, Yes normocephalic and Yes atraumatic Ears: external ears normal General nose exam: Normal external nose present Face and sinus: Yes normal facial exam Mouth: Normal oral and palatal mucosa present Throat: Yes posterior oropharynx normal Eyes: Periorbital: periorbital findings normal Eyelids: Yes eyelids normal Conjunctivae: conjunctivae normal Sclerae: sclerae normal Corneas: corneas normal Pupils: Equal, round and reactive pupils present Direct Oph thalmoscopy: normal light reflex Neck: Neck: Yes full ROM, Yes no lymphadenopathy, Yes no meningeal signs, Yes trachea midline and Yes supple Chest: Chest palpation & inspection: normal inspection of the chest and normal palpation of entire chest wall Resp: Effort & Inspection: normal respiratory effort and able to speak in complete sentences Auscultation: clear to auscultation bilaterally Cardio: Rate: regular rate Rhythm: regular rhythm Heart sounds: S1 normal heart sound present, S2 normal heart sound present and no murmurs GI: Inspection: Yes normal to inspection Palpation (GI): Soft to palpation, Tenderness to palpation present (GI) in the LLQ (Moderate) and suprapubicly (Moderate), no guarding, not rigid and No hepatosplenomegaly present : General: Yes no CVA tenderness Back/Spine/Pelvis: Back: no CVA tenderness Cervical Spine: normal cervical lordosis Thoracic/Lumbar Spine: thoracic and lumbar spine normal to inspection Skin: Lesions: no lesions Rashes: no rashes Wounds: no wounds Neuro: General: oriented to person, oriented to place and no meningeal signs Cranial nerves: Yes CN's II-XII intact bilaterally and Yes Equal, round and reactive pupils present Cognition (Neuro): normal cognition Motor exam (neuro): 5/5 motor strength present throughout Extrem: General: Yes normal to inspection and Yes full ROM Psych: Appearance: well kempt Mental Status: mental status grossly normal Speech and movement: Normal speech and movement present Affect: normal affect Attitude: cooperative Thought process: Normal thought process present Thought content: Normal thought content present Course Course Course Narrative: 20-year-old female who presents emergency department for evaluation of left lower quadrant abdominal pain which began this morning, was intermittent but has gotten progressively worse. The patient's last menstrual period was January 08, 2021 and she did positive home test which makes her approximately 5 weeks 3 days by dates. Her examination revealed that she was tachycardic with a pulse of 127 and hypertensive with a blood pressure of 152/92. I suspect that this is secondary to her pain. Her abdominal exam did reveal left lower quadrant and suprapubic pain. The patient will be worked up for possible ectopic versus ovarian cyst. I did order a CBC, CMP, lipase, quantitative beta HCG, urinalysis. She was ordered to get normal saline IV x1 L and Tylenol 975 mg orally for her pain. I also ordered a ultrasound to evaluate her for possible ectopic versus ovarian cyst. 1024: The patient does feel better after getting the above treatment. The patient's quantitative beta-hCG was 146. Trans abdominal and transvaginal ultrasound revealed no significant adnexal mass, patient has a 2 cm left ovarian cyst, there was a question of a small 2 mm gestational sac which would correspond with a gestational age of 4 weeks and 4 days. This is similar to the patient's LMP estimate of 5 weeks and 3 days. The patient's laboratory evaluation was otherwise unremarkable. I did discuss these findings with the patient. I told her that I am not certain if she has an intrauterine and ectopic still needs to be considered. The patient will need a repeat quantitative beta-hCG in 4-7 days and possibly repeat ultrasound. She will be referred to our on-call OBGYN for further treatment. I told her however for pain gets worse and she is return to the emergency department for re- evaluation. She will be started on vitamins. She was given a note not return to work for for 4 days. Medical Decision Making Lab Data Result diagrams: 02/15/21 09:05 02/15/21 09:05 Labs: Lab Results 02/15/21 02/15/21 Range/Units 09:05 09:05 WBC 8.2 (4.8-10.8) X10*3/uL RBC 5.17 (4.20-5.50) X10*6/uL Hgb 11.8 L (12.0-16.0) g/dl Hct 37.4 (37-47) % MCV 72.3 L (80-98) fL MCH 22.8 L (27.0-33.0) pg MCHC 31.6 (31.0-35.0) g/dl RDW 16.0 (11.0-16.0) % Plt Count 321 (160-400) X10*3/uL MPV 9.9 (9.4-12.3) fL Immature Gran % (Auto) 0.4 (0.0-0.4) % Neut % (Auto) 65.9 (45-73) % Lymph % (Auto) 27.2 (20-40) % [place] % (Auto) 5.5 (2-11) % Eos % (Auto) 0.5 (0-4) % Baso % (Auto) 0.5 (0-2) % Lymph # (Auto) 2.2 (1.2-4.9) X10*3/uL [place] # (Auto) 0.5 (0.1-1.2) X10*3/uL Eos # (Auto) 0.0 (0.0-0.4) X10*3/uL Baso # (Auto) 0.0 (0.0-0.2) X10*3/uL Abs Immat Gran (auto) 0.03 (0.00-0.03) X10*3/uL Absolute Neuts (auto) 5.4 (2.0-8.3) X10*3/uL Absolute Nucleated RBC 0.000 (0.0-0.012) X10*3/uL Nucleated RBC % (auto) 0.0 (0.0-0.2) /100WBC Sodium 138 (135-145) mmol/L Potassium 4.5 (3.3-5.1) mmol/L Chloride 105 (96-108) mmol/L Carbon Dioxide 26 (22-29) mmol/L Anion Gap 12 (12-20) BUN 7 L (9-16) mg/dL Creatinine 0.53 (0.5-1.4) mg/dL Estim Creat Clear Calc 168.7 Estimated GFR > 60 Random Glucose 103 (60-115) mg/dL Calcium 9.5 (8.4-10.2) mg/dL Total Bilirubin 0.7 (0.0-1.0) mg/dL AST 16 D (5-31) U/L ALT 22 (0-31) U/L Alkaline Phosphatase 227 H (39-117) U/L Total Protein 7.5 (6.5-8.0) g/dL Albumin 4.0 (3.5-5.0) g/dL Lipase 6 L (8-78) U/L Beta HCG, Quant 146 mIU/mL Discharge Plan Discharge Prescriptions: No Action naproxen 500 mg tablet 500 mg PO BID PRN (Reason: pain) Qty: 20 RF: 0 cefpodoxime 100 mg tablet 100 mg PO Q12H Qty: 14 RF: 0 amoxicillin 500 mg capsule 500 mg PO BID 7 Days Qty: 14 RF: 0
[2021-02-15 09:13] LABS: MANUAL DIFF FLAG NO
[2021-02-15] MEDS: 0.9 % Sodium Chloride 1,000 ML 999 ML IV (09:13)
[2021-02-15] MEDS: Acetaminophen 325 MG TABLET 975 MG PO (09:14)
[2021-02-15 09:30] LABS: Basophils Percent Auto 0.5 % (0-2); Eosinophils Percent Auto 0.5 % (0-4); Hematocrit 37.4 % (37-47); Hemoglobin 11.8 g/dl (12.0-16.0); Imm Gran Abs Auto 0.03 X10*3/uL (0.00-0.03); Imm Gran Pct Auto 0.4 % (0.0-0.4); Lymphocytes Absolute Auto 2.2 X10*3/uL (1.2-4.9); Lymphocytes Percent Auto 27.2 % (20-40); Mean Corpuscular HGB Conc 31.6 g/dl (31.0-35.0); Mean Corpuscular Hemoglobin 22.8 pg (27.0-33.0); Mean Corpuscular Volume 72.3 fL (80-98); Mean Platelet Volume 9.9 fL (9.4-12.3); Monocytes Absolute Auto 0.5 X10*3/uL (0.1-1.2); Monocytes Percent Auto 5.5 % (2-11); Neutrophils Absolute Auto 5.4 X10*3/uL (2.0-8.3); Neutrophils Percent Auto 65.9 % (45-73); Platelet Count 321 X10*3/uL (160-400); Red Blood Count 5.17 X10*6/uL (4.20-5.50); White Blood Count 8.2 X10*3/uL (4.8-10.8)
[2021-02-15 09:37] LABS: Alanine Aminotransferase 22 U/L (0-31); Alkaline Phosphatase 227 U/L (39-117); Anion Gap 12 (12-20); Aspartate Amino Transferase 16 U/L (5-31); Bilirubin Total 0.7 mg/dL (0.0-1.0); Blood Urea Nitrogen 7 mg/dL (9-16); Calcium 9.5 mg/dL (8.4-10.2); Carbon Dioxide 26 mmol/L (22-29); Chloride 105 mmol/L (96-108); Creatinine Clr Calc Pharmacy 168.7; Estimated Glomerular Filt Rate > 60; Glucose Random 103 mg/dL (60-115); Lipase 6 U/L (8-78); Potassium 4.5 mmol/L (3.3-5.1); Sodium 138 mmol/L (135-145); Total Protein 7.5 g/dL (6.5-8.0)
[2021-02-15 09:45] LABS: HCG Quantitative 146 mIU/mL
[2021-02-15 10:35] VITALS: BP 135/89; PULSE 102; RESP 16; TEMP 37.3; O2SAT 100
[2021-02-15 10:38] VITALS: BP 135/89; PULSE 96; RESP 16
[2021-02-15 10:59] LABS: Glucose Urine UA NEG (NEG); Leukocyte Esterase Urine NEG (NEG); Nitrite Urine NEG (NEG); Specific Gravity - Urine 1.015 (1.005-1.025); Urine Blood TRACE (NEG); Urine Ketones 5 MG/DL (NEG); Urine Protein NEG (NEG-TRACE)
[2021-02-15 11:03] LABS: Appearance Urine CLEAR; Color Urine STRAW
[2021-02-15 11:08] LABS: WBC Urine 0 /HPF (0-4)
[2021-02-15 11:09] LABS: RBC Urine 0-2 /HPF (0); Squamous Epithelial Cell Urine 1+ /LPF
== END 2021-02-15 10:59 | disposition home or self-care (01) ==
PROVIDERS: Emergency Provider Emergency Medicine Emergency Medical Services
DX: R10.32 Left lower quadrant pain (principal); O34.81 Maternal care for other abnormalities of pelvic organs, first trimester; N83.292 Other ovarian cyst, left side; N83.11 Corpus luteum cyst of right ovary; Z3A.01 Less than 8 weeks gestation of pregnancy
CPT/HCPCS: 36415; 76801; 76817; 80053; 81001; 81003; 83690; 84702; 85025; 96360; 99284

== ENCOUNTER 2021-02-17 10:12 | Outpatient (REF) | payer OTHER, SELFPAY ==
[2021-02-17 12:19] LABS: HCG Quantitative 236 mIU/mL
== END 2021-02-17 10:13 | disposition home or self-care (01) ==
LOC: HO.LAB 10:12
PROVIDERS: Visit Provider Obstetrics & Gynecology
DX: O21.0 Mild hyperemesis gravidarum (principal); O36.80X0 Pregnancy with inconclusive fetal viability, not applicable or unspecified; Z3A.00 Weeks of gestation of pregnancy not specified
CPT/HCPCS: 36415; 84702; 99202

== ENCOUNTER 2021-02-20 07:48 | Outpatient (REF) | payer OTHER, SELFPAY ==
--- NOTE | ~2021-02-20 | US_ITS ---
EXAMINATION: US OBSTETRICAL ULTRASOUND CLINICAL INFORMATION: Early with bleeding. COMPARISON: None. LMP: 12/31/2020. Gestational age by maternal dates is 6 weeks 1 day. Estimated date of delivery by maternal dates is to 521. TECHNIQUE: Transabdominal imaging of pelvis is performed FINDINGS: The uterus is anteverted measuring 6.8 cm in length, 3.6 cm in AP and 5.6 cm wide. There is intrauterine distal sac sac and a yolk sac visualized. The main distal sac diameter 0.36 cm corresponding to 4 weeks 6 days. pole is not visualized at this time. No heart rate of motion seen. The right ovary measures 2.6 x 1.8 x 2.1 cm. There is a small paraovarian or exophytic ovarian measuring 1.6 x 1.3 x 1.3 cm. The left ovary measures 2.4 x 1.8 x 2.1 cm. There is small paraovarian or exophytic ovarian cyst measuring 2.0 x 1.5 x 1.3 cm. US/US OB <= 14 weeks fetus IMPRESSION: Single gestational sac and yolk sac seen. pole is not seen. Bilateral parahilar and or exophytic ovarian cysts There is no free fluid in the cul-de-sac.
--- NOTE | ~2021-02-20 | US_ITS ---
EXAMINATION: US OBSTETRICAL ULTRASOUND CLINICAL INFORMATION: Early with bleeding. COMPARISON: None. LMP: 12/31/2020. Gestational age by maternal dates is 6 weeks 1 day. Estimated date of delivery by maternal dates is to 521. TECHNIQUE: Transabdominal imaging of pelvis is performed FINDINGS: The uterus is anteverted measuring 6.8 cm in length, 3.6 cm in AP and 5.6 cm wide. There is intrauterine distal sac sac and a yolk sac visualized. The main distal sac diameter 0.36 cm corresponding to 4 weeks 6 days. pole is not visualized at this time. No heart rate of motion seen. The right ovary measures 2.6 x 1.8 x 2.1 cm. There is a small paraovarian or exophytic ovarian measuring 1.6 x 1.3 x 1.3 cm. The left ovary measures 2.4 x 1.8 x 2.1 cm. There is small paraovarian or exophytic ovarian cyst measuring 2.0 x 1.5 x 1.3 cm. US/US OB transvaginal IMPRESSION: Single gestational sac and yolk sac seen. pole is not seen. Bilateral parahilar and or exophytic ovarian cysts There is no free fluid in the cul-de-sac.
[2021-02-20 08:59] LABS: HCG Quantitative 502 mIU/mL
[2021-02-20 13:45] LABS: CT PCR NOT DETECTED (Not Detect.); NG PCR NOT DETECTED (Not Detect.)
== END 2021-02-20 07:49 | disposition home or self-care (01) ==
LOC: HO.LAB 07:48
PROVIDERS: Obstetrics & Gynecology; Visit Provider Obstetrics & Gynecology
DX: O20.9 Hemorrhage in early pregnancy, unspecified (principal); O36.80X0 Pregnancy with inconclusive fetal viability, not applicable or unspecified; Z3A.00 Weeks of gestation of pregnancy not specified
CPT/HCPCS: 36415; 76801; 76817; 84702; 86850; 86900; 86901; 87491; 87591; 99212

== ENCOUNTER 2021-02-27 12:56 | Emergency (ER) | payer OTHER, SELFPAY ==
--- NOTE | ~2021-02-27 | US_ITS ---
EXAMINATION: US OBSTETRICAL ULTRASOUND CLINICAL INFORMATION: Early with increased spotting/bleeding. COMPARISON: Pelvic ultrasound 02/15/2021 and 02/20/2021. TECHNIQUE: Ultrasound of the maternal pelvis is performed using transabdominal and transvaginal transducers. Transvaginal imaging is performed due to inadequate visualization transabdominally. M-mode Doppler is also performed. FINDINGS: There is a single intrauterine gestational sac with visible yolk sac and visible embryo. pole was not demonstrated on prior ultrasound 02/20/2021. There is no visible subchorionic hemorrhage or hematoma. GESTATIONAL SAC: The gestational sac has increased in size, currently measuring at least 0.9 x 0.5 cm. Prior measurements 0.4 cm on prior ultrasound 02/20/2021 and 0.2 cm on ultrasound 02/15/2021. CRL ([place] rump length): 0.35 cm (6 weeks 0 days +/- 4 days). ZOEY (estimated date of delivery): 10/23/2021 +/- 4 days. HR: Heart rate is 64 bpm which may represent maternal sampling rather than embryo heart rate. This may be reassessed at follow-up pelvic ultrasound to confirm normal embryo heart rate over 100. MATERNAL ADNEXA: The right maternal ovary measures 3.3 x 1.5 x 1.7 cm. The left maternal ovary measures 2.7 x 1.7 x 1.9 cm. There is no significant maternal adnexal mass. There is trace fluid cul-de-sac. No significant maternal pelvic ascites. US/US OB pelvic and transvaginal IMPRESSION: 1. Interval developing intrauterine gestation, now with visible embryo since prior ultrasound 02/20/2021. No visible subchorionic hemorrhage or hematoma. 2. [place]-rump length only 0.35 cm (ultrasound gestational age of 6 weeks 0 days +/- 4 days. Estimated date of delivery is 10/23/2021 +/- 4 days). 3. Although sampled heart rate is bradycardic at 64 bpm, this may represent maternal sampling rather then embryo heart rate. Recommend reassessment at follow-up pelvic ultrasound to confirm normal embryo heart rate over 100. 4. No maternal adnexal mass. Trace maternal pelvic fluid. No significant ascites.
[2021-02-27 13:08] VITALS: BP 145/77; PULSE 100; RESP 15; TEMP 36.6; O2SAT 98; BMI 29.8
--- NOTE | 2021-02-27 13:47 | ED_ITS ---
HPI - Female Genitourinary General Chief complaint: Vaginal Bleeding Stated complaint: bleeding x 1 week - 4 weeks Time Seen by Provider: 02/27/21 13:39 Source: patient Mode of arrival: ambulatory Limitations: no limitations History of Present Illness HPI Narrative: 20-year-old female here with vaginal bleeding x9 days. Patient was seen here on February 20 for similar and had an ultrasound which showed single gestational sac and yolk sac seen. pole is not seen. Patient had bleeding which was scant from 02/19-02/20. On 02/21 increase in bleeding using 4-5 pads a day until 02/24 then slowed down. Increased bleeding 02/26 back to 4-5 pads, now improving but patient concerned d/t lenght of bleeding. No associated pain. No urinary symptoms, fevers, chills, nausea, vomiting. This is the patient's 1st . After she was seen here on February 20 was recommended she follow up with OB for an appointment and repeat quant level. Patient tells me she did not follow-up yet. She did call today however the office was closed and she was unable to be seen. Related Data Previous Rx's Medication Instructions Recorded cefpodoxime 100 mg PO Q12H #14 tab 10/19/20 naproxen 500 mg PO BID PRN #20 tab 10/19/20 amoxicillin 500 mg PO BID 7 Days #14 cap 12/28/20 prenat.vits,damon,bvg-enez-xqpts 1 tab PO DAILY #90 tab 02/15/21 doxylamine succinate 25 mg tablet 25 mg PO BEDTIME PRN #30 tab 02/17/21 pyridoxine (vitamin B6) 25 mg 25 mg PO TID #90 tab 02/17/21 tablet Allergies Allergy/AdvReac Type Severity Reaction Status Date / Time No Known Allergies Allergy Verified 02/20/21 10:23 [No Known Allergies*] Review of Systems Review of Systems: Yes all other systems are reviewed and are negative Constitutional: Constitutional: Reports no additional constitutional complaints, Denies body ache(s), Denies chills, Denies fever(s), Denies headache(s) and Denies weakness Eyes: Eyes: Reports no additional eye complaints and Denies change in vision ENT: Reports system reviewed and no additional complaints, except as documented, Denies dizziness, Denies headache(s), Denies nasal congestion, Denies nasal discharge and Denies neck pain Cardiovascular: Cardiovascular: Reports no additional cardiovascular complaints, Denies chest pain, Denies leg edema and Denies dyspnea Respiratory: Respiratory: Reports no additional respiratory complaints, Denies cough and Denies dyspnea Gastrointestinal: Gastrointestinal: Reports no additional gastrointestinal complaints, Denies abdominal pain, Denies diarrhea, Denies nausea and Denies vomiting Genitourinary: Genitourinary: Reports no additional female genitourinary complaints, Reports abnormal vaginal bleeding, Denies hematuria, Denies dysuria, Denies pelvic pain, Denies urinary incontinence, Denies urinary hesitancy, Denies urinary urgency and Denies vaginal discharge Musculoskeletal: Musculoskeletal: Reports no additional musculoskeletal complaints, Denies back pain, Denies arthralgias, Denies joint swelling, Denies neck pain, Denies numbness and Denies tingling Integumentary/Breasts: Skin/Breast: Reports system reviewed and no additional complaints, except as docu and Denies rash Neurologic: Denies Abnormal speech present, Denies dizziness, Denies headache(s), Denies numbness, Denies tingling and Denies weakness PMF Past Medical History Attestation statement: The following information was validated with the patient. Source: old records reviewed and nursing notes reviewed Medical History No known health problems Social History Social History Alcohol intake: never Smoking Status: Never smoker Use of substances other than those prescribed or required for medical reasons: No Substance Use Type: Marijuana Advance Directives: No Advance Directives Information Provided: No Gender identity: female Physical Exam Vital Signs: Vital Signs: Last Vital Signs Temp 97.9 F 02/27/21 15:34 Pulse 108 H 02/27/21 15:34 Resp 18 02/27/21 15:34 BP 134/78 02/27/21 15:34 Pulse Ox 100 02/27/21 15:34 Body Mass Index 29.8 Const: General: cooperative, healthy appearing, comfortable and no acute distress Orientation/consciousness: patient oriented x3 Limitations: no limitations HENMT: Head: Yes normal to inspection Ears: hearing grossly normal bilaterally General nose exam: Normal external nose present Face and sinus: Yes normal facial exam Mouth: Normal oral and palatal mucosa present Throat: Yes posterior oropharynx normal Eyes: General: appearance normal, both eyes and all related structures Pupils: Equal, round and reactive pupils present Neck: Neck: Yes normal visual inspection Chest: Chest palpation & inspection: normal inspection of the chest Resp: Effort & Inspection: normal respiratory effort Auscultation: clear to auscultation bilaterally Cardio: Rate: regular rate Rhythm: regular rhythm Peripheral pulses: Peripheral pulses 2+ throughout GI: Inspection: Yes normal to inspection Palpation (GI): Soft to palpation and nontender Auscultation: normal bowel sounds : 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 Female Exam: normal external appearance Speculum Exam - Vagina: normal palpation and vaginal bleeding (Slight, no clots) Speculum Exam - Cervix: normal appearance of the cervix and normal palpation Bimanual exam- vagina & uterus: normal bimanual exam, normal palpation and normal palpation Bimanual Exam- Adnexa, other: normal adnexae, no masses and no tenderness OB/external & speculum: vaginal bleeding (Slight, no clots) Back/Spine/Pelvis: Thoracic/Lumbar Spine: thoracic and lumbar spine normal to inspection Skin: General skin exam: no rashes or lesions noted Neuro: General: patient oriented x3, no focal motor deficits and normal sensation to monofilament Cranial nerves: Yes Equal, round and reactive pupils present Cognition (Neuro): normal cognition Speech: No Abnormal sp eech present Gait exam (Neuro): Normal gait present Motor exam (neuro): 5/5 motor strength present throughout Extrem: General: Yes normal to inspection Course Course Course Narrative: 20-year-old female here with vaginal bleeding in the setting of a new diagnosis of . No associated pain. Seen here for 12 and had ultrasound which showed a single gestational sac and yolk sac but no pole. Return here for continued bleeding but no pain. Will need labs, UA, pelvic exam and ultrasound. 1620-labs show a quant which is improving which is consistent with a viable . Urine is negative for UTI. Pelvic exam shows scant amount of bleeding in the vaginal canal. No clots or heavy bleeding. Patient had a Rh which was a positive during her visit on February 20. Ultrasound today shows interval developing intrauterine gestation, now with visible embryo since prior ultrasound 02/20/2021. No visible subchorionic hemorrhage or hematoma. [place]-rump length only 0.35 cm (ultrasound gestational age of 6 weeks 0 days +/- 4 days. Estimated date of delivery is 10/23/2021 +/- 4 days). Although sampled heart rate is bradycardic at 64 bpm, this may represent maternal sampling rather then embryo heart rate. Recommend reassessment at follow-up pelvic ultrasound to confirm normal embryo heart rate over 100. Discussed findings with Dr. Melo from OB. Recommend follow-up this week in the office. Reviewed worrisome signs and symptoms with the patient and when to return to the emergency department. Comfortable discharge home. MDM - Female Genitourinary MDM Narrative Medical decision making narrative: SAB, ectopic preganancy Medical Records Attestation: I reviewed the patient's medical records. Lab Data Attestation: I reviewed the patient's lab results. Result diagrams: 02/27/21 14:15 02/27/21 14:15 Labs: Lab Results 02/27/21 02/27/21 02/27/21 Range/Units 14:15 14:15 14:15 WBC 10.1 (4.8-10.8) X10*3/uL RBC 4.99 (4.20-5.50) X10*6/uL Hgb 11.5 L (12.0-16.0) g/dl Hct 36.2 L (37-47) % MCV 72.5 L (80-98) fL MCH 23.0 L (27.0-33.0) pg MCHC 31.8 (31.0-35.0) g/dl RDW 15.7 (11.0-16.0) % Plt Count 304 (160-400) X10*3/uL MPV 10.1 (9.4-12.3) fL Immature Gran % (Auto) 0.3 (0.0-0.4) % Neut % (Auto) 61.3 (45-73) % Lymph % (Auto) 30.4 (20-40) % [place] % (Auto) 6.6 (2-11) % Eos % (Auto) 1.0 (0-4) % Baso % (Auto) 0.4 (0-2) % Lymph # (Auto) 3.1 (1.2-4.9) X10*3/uL [place] # (Auto) 0.7 (0.1-1.2) X10*3/uL Eos # (Auto) 0.1 (0.0-0.4) X10*3/uL Baso # (Auto) 0.0 (0.0-0.2) X10*3/uL Abs Immat Gran (auto) 0.03 (0.00-0.03) X10*3/uL Absolute Neuts (auto) 6.2 (2.0-8.3) X10*3/uL Absolute Nucleated RBC 0.000 (0.0-0.012) X10*3/uL Nucleated RBC % (auto) 0.0 (0.0-0.2) /100WBC PT 14.5 H (10.8-13.0) SEC INR 1.2 H (0.9-1.1) Sodium 138 (135-145) mmol/L Potassium 4.0 (3.3-5.1) mmol/L Chloride 105 (96-108) mmol/L Carbon Dioxide 26 (22-29) mmol/L Anion Gap 11 L (12-20) BUN 8 L (9-16) mg/dL Creatinine 0.52 (0.5-1.4) mg/dL Estim Creat Clear Calc 172.5 Estimated GFR > 60 Random Glucose 81 (60-115) mg/dL Calcium 9.3 (8.4-10.2) mg/dL Beta HCG, Quant 1451 mIU/mL Urine Color Urine Appearance Urine pH (5.0-8.0) Ur Specific [place] (1.005-1.025) Urine Protein (NEG-TRACE) MG/DL Urine Glucose (UA) (NEG) MG/DL Urine Ketones (NEG) MG/DL Urine Blood (NEG) Urine Nitrite (NEG) Ur Leukocyte Esterase (NEG) Urine RBC (0) /HPF Urine WBC (0-4) /HPF Ur Squamous Epith Cells /LPF Urine Bacteria /LPF Urine Test (NEGATIVE) 02/27/21 02/27/21 Range/Units 14:15 14:15 WBC (4.8-10.8) X10*3/uL RBC (4.20-5.50) X10*6/uL Hgb (12.0-16.0) g/dl Hct (37-47) % MCV (80-98) fL MCH (27.0-33.0) pg MCHC (31.0-35.0) g/dl RDW (11.0-16.0) % Plt Count (160-400) X10*3/uL MPV (9.4-12.3) fL Immature Gran % (Auto) (0.0-0.4) % Neut % (Auto) (45-73) % Lymph % (Auto) (20-40) % [place] % (Auto) (2-11) % Eos % (Auto) (0-4) % Baso % (Auto) (0-2) % Lymph # (Auto) (1.2-4.9) X10*3/uL [place] # (Auto) (0.1-1.2) X10*3/uL Eos # (Auto) (0.0-0.4) X10*3/uL Baso # (Auto) (0.0-0.2) X10*3/uL Abs Immat Gran (auto) (0.00-0.03) X10*3/uL Absolute Neuts (auto) (2.0-8.3) X10*3/uL Absolute Nucleated RBC (0.0-0.012) X10*3/uL Nucleated RBC % (auto) (0.0-0.2) /100WBC PT (10.8-13.0) SEC INR (0.9-1.1) Sodium (135-145) mmol/L Potassium (3.3-5.1) mmol/L Chloride (96-108) mmol/L Carbon Dioxide (22-29) mmol/L Anion Gap (12-20) BUN (9-16) mg/dL Creatinine (0.5-1.4) mg/dL Estim Creat Clear Calc Estimated GFR Random Glucose (60-115) mg/dL Calcium (8.4-10.2) mg/dL Beta HCG, Quant mIU/mL Urine Color YELLOW Urine Appearance CLEAR Urine pH 8.0 (5.0-8.0) Ur Specific [place] 1.020 (1.005-1.025) Urine Protein NEG (NEG-TRACE) MG/DL Urine Glucose (UA) NEG (NEG) MG/DL Urine Ketones NEG (NEG) MG/DL Urine Blood 1+ H (NEG) Urine Nitrite NEG (NEG) Ur Leukocyte Esterase NEG (NEG) Urine RBC 1-4 (0) /HPF Urine WBC 0 (0-4) /HPF Ur Squamous Epith Cells TRACE /LPF Urine Bacteria TRACE /LPF Urine Test POSITIVE H (NEGATIVE) Imaging Data pelvic US: Attestation: I personally reviewed and interpreted this imaging study as follows: Radiologist's impression: 1. Interval developing intrauterine gestation, now with visible embryo since prior ultrasound 02/20/2021. No visible subchorionic hemorrhage or hematoma. 2. [place]-rump length only 0.35 cm (ultrasound gestational age of 6 weeks 0 days +/- 4 days. Estimated date of delivery is 10/23/2021 +/- 4 days). 3. Although sampled heart rate is bradycardic at 64 bpm, this may represent maternal sampling rather then embryo heart rate. Recommend reassessment at follow-up pelvic ultrasound to confirm normal embryo heart rate over 100. 4. No maternal adnexal mass. Trace maternal pelvic fluid. No significant ascites. Discharge Plan Discharge Clinical Impression: First trimester bleeding Patient Disposition: Home, Self-Care Instructions: Non-Threatening First Trimester Vaginal Bleed (ED) Additional Instructions: Increase fluids, rest Return for severe pain Follow-up with Ob Prescriptions: No Action naproxen 500 mg tablet 500 mg PO BID PRN (Reason: pain) Qty: 20 RF: 0 cefpodoxime 100 mg tablet 100 mg PO Q12H Qty: 14 RF: 0 amoxicillin 500 mg capsule 500 mg PO BID 7 Days Qty: 14 RF: 0 prenat.vits,damon,lwy-rhii-qwucx Tablet 1 tab PO DAILY Qty: 90 RF: 0 pyridoxine (vitamin B6) [Vitamin B-6] 25 mg tablet 25 mg PO TID Qty: 90 RF: 3 doxylamine succinate 25 mg tablet 25 mg PO BEDTIME PRN (Reason: sleep) Qty: 30 RF: 11 Referrals: Raffy Melo MD [Physician] - 2 days Stand Alone Forms: Work/School Release Interventions: ED Discharge Assessment Last Done: 02/27/21 16:19 Discharge Date/Time: 02/27/21 16:20
[2021-02-27 14:24] LABS: MANUAL DIFF FLAG NO
[2021-02-27 14:26] LABS: Basophils Percent Auto 0.4 % (0-2); Eosinophils Absolute Auto 0.1 X10*3/uL (0.0-0.4); Hematocrit 36.2 % (37-47); Hemoglobin 11.5 g/dl (12.0-16.0); Imm Gran Abs Auto 0.03 X10*3/uL (0.00-0.03); Imm Gran Pct Auto 0.3 % (0.0-0.4); Lymphocytes Absolute Auto 3.1 X10*3/uL (1.2-4.9); Lymphocytes Percent Auto 30.4 % (20-40); Mean Corpuscular HGB Conc 31.8 g/dl (31.0-35.0); Mean Corpuscular Volume 72.5 fL (80-98); Mean Platelet Volume 10.1 fL (9.4-12.3); Monocytes Absolute Auto 0.7 X10*3/uL (0.1-1.2); Monocytes Percent Auto 6.6 % (2-11); Neutrophils Absolute Auto 6.2 X10*3/uL (2.0-8.3); Neutrophils Percent Auto 61.3 % (45-73); Platelet Count 304 X10*3/uL (160-400); Red Blood Count 4.99 X10*6/uL (4.20-5.50); Red Cell Distribution Width 15.7 % (11.0-16.0); White Blood Count 10.1 X10*3/uL (4.8-10.8)
[2021-02-27 14:37] LABS: INTERNATIONAL NORM RATIO 1.2 (0.9-1.1); Prothrombin Time 14.5 SEC (10.8-13.0)
[2021-02-27 14:43] LABS: Glucose Urine UA NEG (NEG); Leukocyte Esterase Urine NEG (NEG); Nitrite Urine NEG (NEG); Urine Blood 1+ (NEG); Urine Ketones NEG (NEG); Urine Protein NEG (NEG-TRACE)
[2021-02-27 14:46] LABS: UPreg QC Valid YES; Urine Pregnancy POSITIVE (NEGATIVE)
[2021-02-27 14:47] LABS: Appearance Urine CLEAR; Color Urine YELLOW
[2021-02-27 14:56] LABS: Anion Gap 11 (12-20); Blood Urea Nitrogen 8 mg/dL (9-16); Calcium 9.3 mg/dL (8.4-10.2); Carbon Dioxide 26 mmol/L (22-29); Chloride 105 mmol/L (96-108); Creatinine Clr Calc Pharmacy 172.5; Estimated Glomerular Filt Rate > 60; Glucose Random 81 mg/dL (60-115); Sodium 138 mmol/L (135-145)
[2021-02-27 15:03] LABS: HCG Quantitative 1451 mIU/mL
[2021-02-27 15:05] LABS: WBC Urine 0 /HPF (0-4)
[2021-02-27 15:06] LABS: Bacteria Urine TRACE /LPF; Squamous Epithelial Cell Urine TRACE /LPF
[2021-02-27 15:34] VITALS: BP 134/78; PULSE 108; RESP 18; TEMP 36.6; O2SAT 100
== END 2021-02-27 16:20 | disposition home or self-care (01) ==
PROVIDERS: Nurse Practitioner Family; Emergency Provider Emergency Medicine
DX: O20.0 Threatened abortion (principal); Z3A.01 Less than 8 weeks gestation of pregnancy; Z79.899 Other long term (current) drug therapy
CPT/HCPCS: 36415; 76801; 76817; 80048; 81001; 81025; 84702; 85025; 85610; 99284

== ENCOUNTER 2021-03-03 10:55 | Outpatient (REF) | payer OTHER, SELFPAY ==
--- NOTE | ~2021-03-03 | US_ITS ---
EXAMINATION: OBSTETRICAL ULTRASOUND, FIRST TRIMESTER HISTORY: 21-year-old at 7.5 weeks of gestation Vaginal bleeding Rule out miscarriage LMP: 01/08/2021 COMPARISON: 02/27/2021 TECHNIQUE: Real time transabdominal imaging with color and M-mode Doppler. FINDINGS: Empty uterine cavity with the heterogeneous tissue. Endometrial thickness is 7.1 mm. There are small echopenic areas and vascularity in the tissue suggestive of the retained POC. Both maternal ovaries are seen and appear normal. US/US OB pelvic and transvaginal IMPRESSION: 1. The finding is consistent with the incompleted AB. 2. Normal adnexa 3. No free fluid in the cul-de-sac I informed the patient to today's findings which is most consistent with him incomplete . She reports having had heavy vaginal bleeding with clots since Saturday. She was instructed to proceed to the clinic for serial serum beta-hCG. Thank you for allowing me to participate in her care. This note was generated with a voice recognition program. Please excuse any errors which may have been overlooked during my review of this note. Sometimes these errors may affect the content or meaning of a given sentence.
== END 2021-03-03 10:56 | disposition home or self-care (01) ==
LOC: HO.US 10:55
PROVIDERS: PCP Nurse Practitioner Family; Visit Provider Obstetrics & Gynecology
DX: O03.9 Complete or unspecified spontaneous abortion without complication (principal)
CPT/HCPCS: 76801; 76817; 99212

== ENCOUNTER 2021-03-06 13:02 | Outpatient (REF) | payer OTHER, SELFPAY ==
[2021-03-06 14:40] LABS: HCG Quantitative 80 mIU/mL
[2021-03-07 01:21] LABS: CT PCR NOT DETECTED (Not Detect.); NG PCR NOT DETECTED (Not Detect.)
== END 2021-03-06 13:03 | disposition home or self-care (01) ==
LOC: HO.LAB 13:02
PROVIDERS: Advanced Practice Midwife; Visit Provider Obstetrics & Gynecology
DX: O03.4 Incomplete spontaneous abortion without complication (principal)
CPT/HCPCS: 36415; 84702; 87491; 87591; 99212

== ENCOUNTER → 2021-03-08 14:41 | Outpatient (BNVA) | payer OTHER, SELFPAY | PROVIDERS: Visit Provider Obstetrics & Gynecology | DX: O03.4 Incomplete spontaneous abortion without complication (principal) | CPT/HCPCS: 99212 ==

== ENCOUNTER 2021-03-09 11:25 | Day surgery (SDC) | payer OTHER, SELFPAY ==
--- NOTE | ~2021-03-09 | US_ITS ---
EXAMINATION: US OBSTETRICAL ULTRASOUND CLINICAL INFORMATION: Incomplete spontaneous COMPARISON: Previous exam most recent 03/03/2021 TECHNIQUE AND FINDINGS: room by Dr. Melo. US/US OB <= 14 weeks fetus IMPRESSION:
[2021-03-09 11:57] VITALS: BP 121/74; PULSE 100; RESP 16; TEMP 36.4; O2SAT 98; BMI 29.0
--- NOTE | 2021-03-09 12:36 | HO.ANESPROP2 ---
PMF Active Problems Active Problems: All Active Problems (Updated 03/06/21 @ 13:27 by Raffy Melo MD) First trimester bleeding (Acute) SAB (spontaneous ) (Acute) Incomplete (Acute) Past Medical History Medical History No known health problems Family History Family History Other No significant medical problems Surgical History Surgical History No history of previous surgery Social History Social History Alcohol intake: never Smoking Status: Never smoker Use of substances other than those prescribed or required for medical reasons: Yes Substance Use Type: Marijuana Substance Use Frequency: Weekly Advance Directives: No Advance Directives Information Provided: Yes Gender identity: female Meds Allergies Allergy/AdvReac Type Severity Reaction Status Date / Time No Known Allergies Allergy Verified 03/09/21 11:54 [No Known Allergies*] Exam Exam Date and Time: March 09, 2021 1236 Height,Weight and Vital Signs: Height 5 ft 4 in Weight 76.657 kg Last Vital Signs Temp 97.6 F 03/09/21 11:57 Pulse 100 03/09/21 11:57 Resp 16 03/09/21 11:57 BP 121/74 03/09/21 11:57 Pulse Ox 98 03/09/21 11:57 Airway Mallampati Class: II TM Dist: >3cm Neck ROM: Full Assessment and Plan Assessment Anesthesia Assessment: Anesthesia Plan Discussed Final Anesthetic Review NPO: Yes ASA Class: I Final Preanesthetic Review: No Changes in Pt Med Stat, Meds/Allgs Chart Reviewed, Consent Obtained/Reviewed and Anes Risks/Benef Reviewed Patient Risk: Low Procedure Risk: Low Assessment/Block/Sedation in SS: Assess/Block/Sedation-SS Anesthetic Plan Anesthetic Plan: MAC: Disposition: Standard PACU
--- NOTE | 2021-03-09 12:56 | MHC.SHP ---
Pre-Procedural Eval Section A The patient is an INPATIENT: No Changes since office visit: No Cold of Flu in the past 2 weeks, No New Medical Problems, No Changes in Medication and No Patient answered all questions The History & Physical has been completed within 30 days and I have reviewed it.: Yes Section B Chief Complaint: Incomplete spontaneous Allergies: Allergies Allergy/AdvReac Type Severity Reaction Status Date / Time No Known Allergies Allergy Verified 03/09/21 11:54 [No Known Allergies*] Plan Diagnosis/Plan: Unchanged I have reviewed the history and physical and performed a pertinent physical examination on my patient. No changes have occurred unless specified.
--- NOTE | 2021-03-09 13:33 | PM.OP ---
Brief Operative Note Date of Service: 03/09/21 Pre-op diagnosis: Retained products of conception Post-op diagnosis: same Procedure: Suction D&C with ultrasound guidance Surgeon: Raffy Melo MD Anesthesia: MAC Estimated blood loss (mL): 100 Pathology: other (Retained Products of conception) Condition: stable Disposition: PACU
--- NOTE | 2021-03-09 13:34 | P.OP_ITS ---
Operative Note Operative Note Date of Service: 01/27/21 Narrative: Preop diagnosis: Retained products of conception Operation: suction D and C with ultrasound guidance Postop diagnosis: The same EBL: Minimal Anesthesia: MAC Assembler Trim: None Pathology: Retained Products of conception Procedure: The patient was put in a dorsal distal mid position was scrubbed and draped in the usual sterile fashion. A sterile speculum was inserted inside the patient's vagina the anterior lip of the cervix was grasped with single-tooth tenaculum the cervix was dilated up to 7 mm. Under ultrasonographic guidance flexible 7. Suction tip was introduced inside the patient ran cavity till the fundus was hit then turning the suction 360 degrees around products of conception was sucked out toward the uterine cavity. The suction tip was taken out of the patient uterine cavity sharp curettings was followed in 4 quadrants of the uterus till a gritty feeling was felt. The suction tip was reintroduced under ultrasonographic guidance and intrauterine blood was sucked. The suction tip was taken out. Single-tooth tenaculum was removed hemostasis assured using pressure. The patient tolerated the procedure well and was transferred to the PACU in a stable condition.
[2021-03-09 13:43] VITALS: BP 112/64; PULSE 92; RESP 16; TEMP 36.4; O2SAT 100
[2021-03-09] MEDS: oxyCODONE HCl Immed Release 5 MG TABLET PO (14:02)
[2021-03-09] MEDS: Acetaminophen 325 MG TABLET 650 MG PO (14:02)
[2021-03-09 14:04] VITALS: BP 129/80; PULSE 91; RESP 18; TEMP 36.4; O2SAT 100
== END 2021-03-09 14:51 | disposition home or self-care (01) ==
PROVIDERS: Visit Provider Obstetrics & Gynecology
PROC: (CPT 59812; principal; 2021-03-09 13:00)
DX: O03.4 Incomplete spontaneous abortion without complication (principal)
CPT/HCPCS: 59812; 76801; 86850; 86900; 86901; 88305; J2250; J3010

== ENCOUNTER 2021-03-14 09:41 | Emergency (ER) | payer OTHER, SELFPAY ==
--- NOTE | ~2021-03-14 | CT_ITS ---
EXAMINATION: CT ABDOMEN AND PELVIS WITH CONTRAST CLINICAL INFORMATION: Right lower quadrant pain and vomiting. Status post was discharged 03/09/2021. COMPARISON: CT abdomen and pelvis with contrast 10/18/2020 TECHNIQUE: Multidetector volumetric images were obtained from the superior aspect of the liver through the pubic symphysis following administration 85 mL of Omnipaque 350 intravenous contrast. Sagittal and coronal reformatted images were obtained on the technologist's workstation. Oral contrast: No This CT examination was performed using dose optimization techniques as appropriate, variously including the following: *Automated exposure control *Adjustment of mA and/or kV according to patient size (this includes techniques or standardized protocols for targeted exams where dose is matched to indication/reason for exam; i.e. extremities or head) *Use of iterative reconstruction technique DLP: 597 mGy-cm FINDINGS: LUNG BASES: The visualized lung bases are unremarkable. LIVER, GALLBLADDER, AND BILIARY TREE: The liver is normal in size, shape, and attenuation. No focal hepatic lesion or biliary ductal dilatation is present. The gallbladder is unremarkable with no evidence of radiopaque gallstones, gallbladder wall thickening, or obvious pericholecystic inflammatory changes. PANCREAS: Unremarkable. SPLEEN: Unremarkable. ADRENAL GLANDS: Unremarkable. KIDNEYS AND URETERS: The kidneys are normal in size, shape, and attenuation. No hydronephrosis, hydroureter, or calculi seen. No perinephric stranding. BLADDER: Unremarkable. GASTROINTESTINAL TRACT: There is scattered stool and gas seen throughout the sigmoid and ascending colon. The small bowel loops are normal caliber. The appendix is normal caliber. The stomach is nondistended ABDOMINAL WALL: No significant hernia is appreciated. LYMPH NODES: Small shotty lymph nodes in the inguinal region. No retroperitoneal lymph nodes. VASCULAR: Unremarkable. PELVIC VISCERA: There is a 1.3 cm right ovarian and 3.7 x 1.8 cm left ovarian cysts. The uterus is anteverted and appears unremarkable. There is no free fluid in the cul-de-sac. OSSEOUS STRUCTURES: No lytic or sclerotic process seen. CT/CT abdomen pelvis w con IMPRESSION: No acute intra-abdominal process seen. Mild constipation.
[2021-03-14 09:53] VITALS: BP 123/68; PULSE 93; RESP 18; TEMP 36.6; O2SAT 99; BMI 29.0
--- NOTE | 2021-03-14 10:28 | ED_ITS ---
HPI - Nausea/Vomiting/Diarrhea General Chief complaint: Nausea/Vomiting/Diarrhea Stated complaint: vomiting Time Seen by Provider: 03/14/21 10:22 Source: patient and old records reviewed Mode of arrival: ambulatory Limitations: no limitations History of Present Illness MD elicited complaint: nausea, vomiting and abdominal pain Pertinent past history: other (had D+C on 03/09 but bleeding controlled no clots) Onset (ago): day(s) (last night) Description of vomiting: food contents and bilious Associated nausea: Yes Associated abdominal pain: Yes Location of pain: periumbilical and RLQ Pain consistency: constant Severity: moderate Quality: cramping and aching Exacerbating factors: none Relieving factors: none Associated symptoms: loss of appetite, malaise and nausea/vomiting Related Data Previous Rx's Medication Instructions Recorded ondansetron 4 mg PO Q8H PRN #20 tab 03/14/21 Allergies Allergy/AdvReac Type Severity Reaction Status Date / Time No Known Allergies Allergy Verified 03/14/21 09:53 [No Known Allergies*] Review of Systems Review of Systems: Constitutional : No Weight loss, No Fever, No Chills ENT/Mouth : No sore throat, No Rhinorrhea Eyes: No Swelling, No Redness Cardiovascular : No Chest Pain, No SOB, NoEdema Respiratory : No Cough, No Sputum, No Wheezing Gastrointestinal : Positive Nausea, Positive Vomiting, no Diarrhea, positive abdominal Pain, No Hematochezia, No Melena Genitourinary : No Dysuria, No Urinary Frequency, No Hematuria, No Urgency, scant vaginal bleeding Musculoskeletal : No joint pain, No Myalgias, No Joint Swelling Skin : No Skin Lesions, No rash Neuro : No Weakness, No Numbness, No Dizziness, No Headache Psych : No Anxiety/Panic, No Depression Heme/Lymph: No Bruising, No Lymphadenopathy Endocrine : No Polyuria, No Polydipsia All other systems reviewed and are negative. Gastrointestinal: Gastrointestinal: Reports nausea PMFSH Past Medical History Attestation statement: The following information was validated with the patient. Medical History (Updated 03/14/21 @ 13:47 by Ana María Allison DO) Incomplete No known health problems Surgical History (Updated 03/14/21 @ 10:31 by Ana María Allison DO) H/O dilation and curettage No history of previous surgery Family History Family History Other No significant medical problems Social History Social History Alcohol intake: never Smoking Status: Never smoker Use of substances other than those prescribed or required for medical reasons: Yes Substance Use Type: Marijuana Substance Use Frequency: Weekly Advance Directives: No Advance Directives Information Provided: No Patient : No Gender identity: female Physical Exam Vital Signs: Vital Signs: Last Vital Signs Temp 97.8 F 03/14/21 09:53 Pulse 100 03/14/21 11:44 Resp 20 03/14/21 11:44 BP 144/83 H 03/14/21 11:44 Pulse Ox 100 03/14/21 11:44 Body Mass Index 29.0 Appearance: Alert. Oriented X3. No acute distress. Eyes: Pupils equal, round and reactive to light. ENT: Pharynx mild dry MM Neck: Normal inspection. Neck supple. CVS: Normal heart rate and rhythm. Pulses normal. Respiratory: No respiratory distress. Breath sounds normal. Abdomen: Soft and moderate periumbilical and RLQ pain no rebound or guarding Skin: Skin warm and dry. pale skin color. Normal skin turgor. Extremities: No lower extremity edema. No calf ttp Neuro: Oriented X 3. No motor deficit. No sensory deficit. Course Course Course Narrative: labs, UA, CT scan negative stable for DC at this time, passed PO challenge quant negative, discussed ?new cysts on CT scan from 03/09 though they were there not reported MDM - Nausea/Vomiting/Diarrhea MDM Narrative Medical decision making narrative: 20 yo female s/p D+C on 03/09 for incomplete SAB no clots, scant vaginal bleeding c/o n/v and lower abdominal pain last night will need labs, IVF, IV antiemetics, CT scan to evaluate for perforation (less likely) vs appendicitis, dispo per results and findings. Lab Data Result diagrams: 03/14/21 11:10 03/14/21 11:10 Labs: Lab Results 03/14/21 03/14/21 03/14/21 Range/Units 11:10 11:10 11:10 WBC 10.1 (4.8-10.8) X10*3/uL RBC 5.56 H (4.20-5.50) X10*6/uL Hgb 12.7 (12.0-16.0) g/dl Hct 39.7 (37-47) % MCV 71.4 L (80-98) fL MCH 22.8 L (27.0-33.0) pg MCHC 32.0 (31.0-35.0) g/dl RDW 15.3 (11.0-16.0) % Plt Count 353 (160-400) X10*3/uL MPV 10.5 (9.4-12.3) fL Immature Gran % (Auto) 0.4 (0.0-0.4) % Neut % (Auto) 79.0 H (45-73) % Lymph % (Auto) 17.7 L (20-40) % Barber % (Auto) 2.4 (2-11) % Eos % (Auto) 0.1 (0-4) % Baso % (Auto) 0.4 (0-2) % Lymph # (Auto) 1.8 (1.2-4.9) X10*3/uL [place] # (Auto) 0.2 (0.1-1.2) X10*3/uL Eos # (Auto) 0.0 (0.0-0.4) X10*3/uL Baso # (Auto) 0.0 (0.0-0.2) X10*3/uL Abs Immat Gran (auto) 0.04 H (0.00-0.03) X10*3/uL Absolute Neuts (auto) 8.0 (2.0-8.3) X10*3/uL Absolute Nucleated RBC 0.000 (0.0-0.012) X10*3/uL Nucleated RBC % (auto) 0.0 (0.0-0.2) /100WBC PT 13.7 H (10.8-13.0) SEC INR 1.2 H (0.9-1.1) APTT 35.8 (24.1-38.0) SEC Sodium 137 (135-145) mmol/L Potassium 4.1 (3.3-5.1) mmol/L Chloride 105 (96-108) mmol/L Carbon Dioxide 23 (22-29) mmol/L Anion Gap 13 (12-20) BUN 12 (9-16) mg/dL Creatinine 0.54 (0.5-1.4) mg/dL Estim Creat Clear Calc 163.7 Estimated GFR > 60 Random Glucose 129 H D (60-115) mg/dL Calcium 10.0 D (8.4-10.2) mg/dL Magnesium 1.9 (1.6-2.6) mg/dL Total Bilirubin 0.7 (0.0-1.0) mg/dL Direct Bilirubin 0.3 (0.0-0.5) mg/dL AST 19 (5-31) U/L ALT 26 (0-31) U/L Alkaline Phosphatase 250 H (39-117) U/L Total Protein 7.9 (6.5-8.0) g/dL Albumin 4.2 (3.5-5.0) g/dL Lipase 6 L (8-78) U/L Beta HCG, Quant 6 mIU/mL Urine Color Urine Appearance Urine pH (5.0-8.0) Ur Specific [place] (1.005-1.025) Urine Protein (NEG-TRACE) MG/DL Urine Glucose (UA) (NEG) MG/DL Urine Ketones (NEG) MG/DL Urine Blood (NEG) Urine Nitrite (NEG) Ur Leukocyte Esterase (NEG) Urine RBC (0) /HPF Urine WBC (0-4) /HPF Ur Squamous Epith Cells /LPF Urine Bacteria /LPF Urine Mucus /LPF COVID-19 (LINDA) (Negative) COVID-19 Clin Com 03/14/21 03/14/21 Range/Units 11:10 11:10 WBC (4.8-10.8) X10*3/uL RBC (4.20-5.50) X10*6/uL Hgb (12.0-16.0) g/dl Hct (37-47) % MCV (80-98) fL MCH (27.0-33.0) pg MCHC (31.0-35.0) g/dl RDW (11.0-16.0) % Plt Count (160-400) X10*3/uL MPV (9.4-12.3) fL Immature Gran % (Auto) (0.0-0.4) % Neut % (Auto) (45-73) % Lymph % (Auto) (20-40) % [place] % (Auto) (2-11) % Eos % (Auto) (0-4) % Baso % (Auto) (0-2) % Lymph # (Auto) (1.2-4.9) X10*3/uL [place] # (Auto) (0.1-1.2) X10*3/uL Eos # (Auto) (0.0-0.4) X10*3/uL Baso # (Auto) (0.0-0.2) X10*3/uL Abs Immat Gran (auto) (0.00-0.03) X10*3/uL Absolute Neuts (auto) (2.0-8.3) X10*3/uL Absolute Nucleated RBC (0.0-0.012) X10*3/uL Nucleated RBC % (auto) (0.0-0.2) /100WBC PT (10.8-13.0) SEC INR (0.9-1.1) APTT (24.1-38.0) SEC Sodium (135-145) mmol/L Potassium (3.3-5.1) mmol/L Chloride (96-108) mmol/L Carbon Dioxide (22-29) mmol/L Anion Gap (12-20) BUN (9-16) mg/dL Creatinine (0.5-1.4) mg/dL Estim Creat Clear Calc Estimated GFR Random Glucose (60-115) mg/dL Calcium (8.4-10.2) mg/dL Magnesium (1.6-2.6) mg/dL Total Bilirubin (0.0-1.0) mg/dL Direct Bilirubin (0.0-0.5) mg/dL AST (5-31) U/L ALT (0-31) U/L Alkaline Phosphatase (39-117) U/L Total Protein (6.5-8.0) g/dL Albumin (3.5-5.0) g/dL Lipase (8-78) U/L Beta HCG, Quant mIU/mL Urine Color YELLOW Urine Appearance CLEAR Urine pH 8.5 H (5.0-8.0) Ur Specific [place] 1.020 (1.005-1.025) Urine Protein NEG (NEG-TRACE) MG/DL Urine Glucose (UA) NEG (NEG) MG/DL Urine Ketones NEG (NEG) MG/DL Urine Blood 1+ H (NEG) Urine Nitrite NEG (NEG) Ur Leukocyte Esterase NEG (NEG) Urine RBC 5-9 H (0) /HPF Urine WBC 0 (0-4) /HPF Ur Squamous Epith Cells 1+ /LPF Urine Bacteria NONE /LPF Urine Mucus 1+ /LPF COVID-19 (LINDA) Negative (Negative) COVID-19 Clin Com See Note Discharge Plan Discharge Clinical Impression: Vomiting Qualifiers: Vomiting type: unspecified Vomiting Intractability: non-intractable Nausea presence: with nausea Qualified Code(s): R11.2 - Nausea with vomiting, unspecified Ovarian cyst Qualifiers: Laterality: bilateral Qualified Code(s): N83.201 - Unspecified ovarian cyst, right side Patient Disposition: Home, Self-Care Instructions: Ovarian Cyst (ED), Acute Nausea and Vomiting (ED) Additional Instructions: return to ED for any worsening symptoms or concerns Prescriptions: New ondansetron 4 mg tablet,disintegrating 4 mg PO Q8H PRN (Reason: nausea and vomiting) Qty: 20 RF: 0 Stand Alone Forms: Work/School Release
[2021-03-14 11:16] LABS: MANUAL DIFF FLAG NO
[2021-03-14 11:21] LABS: Basophils Percent Auto 0.4 % (0-2); Eosinophils Percent Auto 0.1 % (0-4); Glucose Urine UA NEG (NEG); Hematocrit 39.7 % (37-47); Hemoglobin 12.7 g/dl (12.0-16.0); Imm Gran Abs Auto 0.04 X10*3/uL (0.00-0.03); Imm Gran Pct Auto 0.4 % (0.0-0.4); Leukocyte Esterase Urine NEG (NEG); Lymphocytes Absolute Auto 1.8 X10*3/uL (1.2-4.9); Lymphocytes Percent Auto 17.7 % (20-40); Mean Corpuscular Hemoglobin 22.8 pg (27.0-33.0); Mean Corpuscular Volume 71.4 fL (80-98); Mean Platelet Volume 10.5 fL (9.4-12.3); Monocytes Absolute Auto 0.2 X10*3/uL (0.1-1.2); Monocytes Percent Auto 2.4 % (2-11); Nitrite Urine NEG (NEG); PH 8.5 (5.0-8.0); Platelet Count 353 X10*3/uL (160-400); Red Blood Count 5.56 X10*6/uL (4.20-5.50); Red Cell Distribution Width 15.3 % (11.0-16.0); Urine Blood 1+ (NEG); Urine Ketones NEG (NEG); Urine Protein NEG (NEG-TRACE); White Blood Count 10.1 X10*3/uL (4.8-10.8)
[2021-03-14 11:22] LABS: INTERNATIONAL NORM RATIO 1.2 (0.9-1.1); Prothrombin Time 13.7 SEC (10.8-13.0)
[2021-03-14 11:23] LABS: Appearance Urine CLEAR; Color Urine YELLOW
[2021-03-14 11:24] LABS: Partial Thromboplastin Time 35.8 SEC (24.1-38.0)
[2021-03-14] MEDS: Metoclopramide HCl 10 MG/2 ML VIAL IVPUSH (11:28)
[2021-03-14] MEDS: diphenhydrAMINE HCL 50 MG/ML VIAL 25 MG IVPUSH (11:29)
[2021-03-14 11:30] LABS: Mucus Urine 1+ /LPF; Squamous Epithelial Cell Urine 1+ /LPF; WBC Urine 0 /HPF (0-4)
[2021-03-14] MEDS: 0.9 % Sodium Chloride 1,000 ML 999 ML IVCONT (11:30)
[2021-03-14 11:33] LABS: IDNOW Serial# 9DD0AD1C
[2021-03-14 11:34] LABS: COVID-19 Test Negative (Negative)
--- NOTE | 2021-03-14 11:39 | PC.NURSE ---
Addendum entered by Imelda Harris RN 03/14/21 11:41: d and c procedure. Pt reports using 2 pads daily. Started with n/v yesterday and claire-umbilical pain. Medicated as charted. Original Note: Pt alert and oriented, skin pink, warm, dry. Reports miscarriage last week, followed by Romina SUN
[2021-03-14 11:44] VITALS: BP 144/83; PULSE 100; RESP 20; O2SAT 100
[2021-03-14 11:49] LABS: Alanine Aminotransferase 26 U/L (0-31); Albumin Level 4.2 g/dL (3.5-5.0); Alkaline Phosphatase 250 U/L (39-117); Anion Gap 13 (12-20); Aspartate Amino Transferase 19 U/L (5-31); Bilirubin Direct 0.3 mg/dL (0.0-0.5); Bilirubin Total 0.7 mg/dL (0.0-1.0); Blood Urea Nitrogen 12 mg/dL (9-16); Carbon Dioxide 23 mmol/L (22-29); Chloride 105 mmol/L (96-108); Creatinine Clr Calc Pharmacy 163.7; Estimated Glomerular Filt Rate > 60; Glucose Random 129 mg/dL (60-115); Lipase 6 U/L (8-78); Magnesium 1.9 mg/dL (1.6-2.6); Potassium 4.1 mmol/L (3.3-5.1); Sodium 137 mmol/L (135-145); Total Protein 7.9 g/dL (6.5-8.0)
[2021-03-14] MEDS: iohexoL 350 MG/ML 100 ML INFUS..BTL IV (12:27)
[2021-03-14 13:44] LABS: HCG Quantitative 6 mIU/mL
== END 2021-03-14 14:19 | disposition home or self-care (01) ==
PROVIDERS: Emergency Provider Emergency Medicine
DX: R11.2 Nausea with vomiting, unspecified (principal); N83.202 Unspecified ovarian cyst, left side; N83.201 Unspecified ovarian cyst, right side; Z20.822 Contact with and (suspected) exposure to COVID-19
CPT/HCPCS: 36415; 74177; 80048; 80076; 81001; 83690; 83735; 84702; 85025; 85610; 85730; 87635; 96361; 96374; 96375; 99284; J1200; J2765; Q9967

== ENCOUNTER 2021-04-16 18:40 | Emergency (ER) | payer OTHER, SELFPAY ==
--- NOTE | ~2021-04-16 | XR_ITS ---
EXAMINATION: XR FOOT, RIGHT CLINICAL INFORMATION: Rule out foreign body. COMPARISON: None TECHNIQUE: AP, lateral, and oblique views of the right foot. FINDINGS: The bones and soft tissues are normal. No fracture. Alignment is anatomic. Joint spaces are maintained. XR/XR foot RT min 3V IMPRESSION: No radiodense foreign body found. Please note that unleaded glass will not be visible on x-ray.
[2021-04-16 20:16] VITALS: BP 135/67; PULSE 110; RESP 16; TEMP 36.7; O2SAT 99; BMI 29.2
--- NOTE | 2021-04-16 20:23 | ED.LOWEXIN ---
HPI - Extremity Injury (Lower) General Chief Complaint: Extremity Injury, Lower Stated Complaint: FB in foot Time Seen by Provider: 04/16/21 20:20 History of Present Illness HPI Narrative: Patient complains of foreign body sensation and pain after stepping on glass last night, with right foot no numbness no weakness no tingling no rash Related Data Previous Rx's Medication Instructions Recorded ondansetron 4 mg PO Q8H PRN #20 tab 03/14/21 Allergies Allergy/AdvReac Type Severity Reaction Status Date / Time No Known Allergies Allergy Verified 04/16/21 20:18 [No Known Allergies*] Review of Systems Review of Systems: Positive for right foot foreign body sensation Negatives are no fever no chills no redness no warmth no swelling no discharge no numbness weakness or tingling no skin rash Yes all other systems are reviewed and are negative [facility] Past Medical History Source: nursing notes reviewed Medical History (Updated 04/17/21 @ 00:00 by Malachi Jay) Incomplete No known health problems Surgical History H/O dilation and curettage No history of previous surgery Family History Family History Other No significant medical problems Social History Social History Alcohol intake: never Patient Tobacco Use Status: Never used Tobacco Substance Use Type: Marijuana Gender identity: female Physical Exam Vital Signs: Vital Signs: Last Vital Signs Temp 98.1 F 04/16/21 20:16 Pulse 110 H 04/16/21 20:16 Resp 16 04/16/21 20:16 BP 135/67 04/16/21 20:16 Pulse Ox 99 04/16/21 20:16 Body Mass Index 29.2 General appearance comfortable no distress Head is normocephalic atraumatic Neck is supple Respiratory no distress Skin no rash The right foot had some mild tenderness over the dorsum of this foot with a small puncture wound, full range of motion in all joints no redness no swelling no discharge, I could not palpate any foreign body and neurovascular intact distal Course Course Course Narrative: No foreign body was seen on the x-ray and patient is advised some foreign bodies are not visible on a plain film and if sensation continues to follow with Orthopedics for further evaluation for missed foreign body Discharge Plan Discharge Clinical Impression: Puncture wound of foot, right Patient Disposition: Home, Self-Care Additional Instructions: X-ray did not show any glass foreign body that we could see Pain is most likely from a puncture wound which can hurt for a couple days If pain continues you can follow with orthopedist for further evaluation to check if there is any missed foreign body You get a tetanus shot Return to ER any time for redness swelling any sign of infection In the pharmacy they have a foot section and often have some thick round ring bandages that may help you to walk and put some weight on that area Prescriptions: No Action ondansetron 4 mg tablet,disintegrating 4 mg PO Q8H PRN (Reason: nausea and vomiting) Qty: 20 RF: 0 Referrals: Jenifer Silva MD [Physician] - 2 days (Patient with foreign body sensation in the bottom of her foot with a negative x-ray) Interventions: ED Discharge Assessment Last Done: 04/16/21 21:01 Discharge Date/Time: 04/16/21 21:02
[2021-04-16] MEDS: Diphth,Pertus(ACell),Tet Adult 0.5 ML SYRINGE IM (20:41)
== END 2021-04-16 21:02 | disposition home or self-care (01) ==
PROVIDERS: Emergency Provider Emergency Medicine
DX: S91.331A Puncture wound without foreign body, right foot, initial encounter (principal); W25.XXXA Contact with sharp glass, initial encounter; Y93.89 Activity, other specified; Y92.039 Unspecified place in apartment as the place of occurrence of the external cause; Y99.9 Unspecified external cause status
CPT/HCPCS: 73630; 90471; 90715; 99284

== ENCOUNTER → 2021-05-29 13:48 | Outpatient (BNVA) | payer OTHER, SELFPAY | PROVIDERS: PCP Internal Medicine; Visit Provider Advanced Practice Midwife | DX: N92.6 Irregular menstruation, unspecified (principal); O16.1 Unspecified maternal hypertension, first trimester | CPT/HCPCS: 99212 ==

== ENCOUNTER 2021-05-30 09:54 | Outpatient (REF) | payer OTHER, SELFPAY ==
--- NOTE | ~2021-05-30 | US_ITS ---
EXAMINATION: PELVIC ULTRASOUND CLINICAL INFORMATION: LMP 04/07/2021. COMPARISON: Previous OB ultrasound 03/09/2021 TECHNIQUE: Transabdominal and transvaginal pelvic ultrasound was performed. Transvaginal exam was performed for better visualization of the uterus and ovaries. FINDINGS: The uterus is anteverted and normal in size and shape. There is an intrauterine gestational sac and yolk sac. Mean sac diameter measures 0.91 cm suggesting gestational age of 5 weeks 4 days. No pole is seen. The right ovary measures 4.2 x 2.8 x 2.2 cm. There is a 1.8 x 1.7 x 1.7 cm minimally complex cyst. The left ovary measures 4.2 x 2.6 x 2.2 cm. There is a 1.5 x 2 x 1.7 cm simple left ovarian cyst. There is no fluid in the pelvis. US/US OB pelvic and transvaginal IMPRESSION: Intrauterine gestational sac and yolk sac. Mean sac diameter suggests gestational age of 5 weeks 4 days.
== END 2021-05-30 09:55 | disposition home or self-care (01) ==
LOC: HO.HMGCX 09:54
PROVIDERS: Visit Provider Obstetrics & Gynecology
DX: N92.6 Irregular menstruation, unspecified (principal)
CPT/HCPCS: 76801; 76817

== ENCOUNTER 2021-05-31 14:40 | Outpatient (REF) | payer OTHER, SELFPAY ==
[2021-05-31 18:58] LABS: HCG Quantitative 4847 mIU/mL
== END 2021-05-31 14:41 | disposition home or self-care (01) ==
LOC: HO.LAB 14:40
PROVIDERS: PCP Internal Medicine; Visit Provider Advanced Practice Midwife
DX: N92.6 Irregular menstruation, unspecified (principal); Z87.59 Personal history of other complications of pregnancy, childbirth and the puerperium
CPT/HCPCS: 36415; 84702

== ENCOUNTER 2021-06-02 11:55 | Outpatient (REF) | payer OTHER, SELFPAY ==
[2021-06-02 13:07] LABS: HCG Quantitative 7663 mIU/mL
== END 2021-06-02 11:56 | disposition home or self-care (01) ==
LOC: HO.LAB 11:55
PROVIDERS: PCP Internal Medicine; Visit Provider Advanced Practice Midwife
DX: Z87.59 Personal history of other complications of pregnancy, childbirth and the puerperium (principal)
CPT/HCPCS: 36415; 84702

== ENCOUNTER 2021-06-06 13:49 | Outpatient (REF) | payer OTHER, SELFPAY ==
--- NOTE | ~2021-06-06 | US_ITS ---
EXAMINATION: US OBSTETRICAL ULTRASOUND CLINICAL INFORMATION: Positive test. Irregular menstruation. Uncertain dates. COMPARISON: Previous exam 05/30/2021. LMP: 04/07/2021. Gestational age by maternal dates is 8 weeks 4 days. Estimated date of delivery by maternal dates is 01/12/2022. TECHNIQUE: Transabdominal first trimester OB ultrasound FINDINGS: There is a single intrauterine gestational sac with visible yolk sac, embryo/fetus, and cardiac activity. There is no significant subchorionic hemorrhage or hematoma. HR: 124 beats per minute. CRL (crown rump length): 0.78 cm (6 weeks 5 days +/- 4 days). ZOEY (estimated date of delivery): 01/25/2022 +/- 4 days. MATERNAL ADNEXA: The right maternal ovary measures 3.4 x 2 x 3.9 cm. There is a 1.8 x 1.6 x 2.1 cm right ovarian cyst. The left maternal ovary measures 3.6 x 1.8 x 1.9 cm. There is no significant maternal adnexal mass. No maternal pelvic ascites. US/US OB <= 14 weeks fetus IMPRESSION: 1. Single intrauterine gestation with ultrasound gestational age of 6 weeks 5 days +/- 4 days. 2. Estimated date of delivery is 01/25/2022 +/- 4 days. 3. No maternal adnexal mass or pelvic ascites.
== END 2021-06-06 13:50 | disposition home or self-care (01) ==
LOC: HO.HMGCX 13:49
PROVIDERS: PCP Internal Medicine; Visit Provider Advanced Practice Midwife
DX: Z34.91 Encounter for supervision of normal pregnancy, unspecified, first trimester (principal)
CPT/HCPCS: 76801

== ENCOUNTER 2021-06-08 09:54 | Outpatient (REF) | payer OTHER, SELFPAY ==
[2021-06-08 11:30] LABS: HCG Quantitative 29109 mIU/mL
== END 2021-06-08 09:55 | disposition home or self-care (01) ==
LOC: HO.LAB 09:54
PROVIDERS: PCP Internal Medicine; Visit Provider Advanced Practice Midwife
DX: O20.9 Hemorrhage in early pregnancy, unspecified (principal)
CPT/HCPCS: 36415; 84702

== ENCOUNTER 2021-06-09 09:42 | Outpatient (REF) | payer OTHER, SELFPAY ==
--- NOTE | ~2021-06-09 | US_ITS ---
EXAMINATION: OBSTETRICAL ULTRASOUND, FIRST TRIMESTER HISTORY: 20-year-old at 7.0 weeks of gestation Vaginal spotting LMP: 04/07/2021 COMPARISON: 05/30/2021 TECHNIQUE: Real time transabdominal imaging with color and M-mode Doppler. FINDINGS: A single, live IUP CRL of 9.4 mm c/w 7.0wks is noted. Heart Rate: 126 beats per minute. There is no evidence of subchorionic hematoma or retroplacental blood collection. Both maternal ovaries are seen and appear normal. Right ovary contains a small cyst measuring 1.5 x 1.6 x 1.4 cm. GESTATIONAL AGE: 1. GA from LMP: 9.0 wks 2. GA from AUA: 7.0 wks ESTIMATED DATE OF DELIVERY: 1. ZOEY from LMP: 01/12/2022 2. ZOEY from AUA: 01/26/2022 US/US OB pelvic and transvaginal IMPRESSION: 1. A single live IUP 2. CRL is consistent with 7.0 weeks of gestation. The best ZOEY is 01/26/2022. 3. No evidence of subchorionic or retroplacental hematoma Thank you very much for this referral. This note was generated with a voice recognition program. Please excuse any errors which may have been overlooked during my review of this note. Sometimes these errors may affect the content or meaning of a given sentence.
== END 2021-06-09 09:43 | disposition home or self-care (01) ==
LOC: HO.US 09:42
PROVIDERS: PCP Internal Medicine; Visit Provider Advanced Practice Midwife
DX: Z34.91 Encounter for supervision of normal pregnancy, unspecified, first trimester (principal); Z87.59 Personal history of other complications of pregnancy, childbirth and the puerperium
CPT/HCPCS: 76801; 76817

== ENCOUNTER 2021-06-10 03:24 | Emergency (ER) | payer OTHER, SELFPAY ==
--- NOTE | ~2021-06-10 | US_ITS ---
EXAMINATION: OBSTETRIC ULTRASOUND - FIRST TRIMESTER CLINICAL INFORMATION: Cramping and vaginal bleeding with passage of clots. COMPARISON: Previous day TECHNIQUE: Transabdominal imaging of the uterus was performed utilizing cohen scale and color doppler technique, with m-mode imaging. FINDINGS: There is a well-formed intrauterine gestational sac containing a pole measuring 8.8 mm corresponding to gestational age of 7 weeks, 0 days. cardiac activity detected at 130 bpm. Normal yolk sac is present. There is a small subchorionic hematoma present along the inferior aspect of the chorion towards the lower uterine segment. US/US OB transvaginal IMPRESSION: * Single live intrauterine fetus with estimated gestational age by ultrasound of 7 weeks, 0 days, for an estimated date of delivery 01/27/2022. * Small subchorionic hematoma.
--- NOTE | ~2021-06-10 | US_ITS ---
EXAMINATION: OBSTETRIC ULTRASOUND - FIRST TRIMESTER CLINICAL INFORMATION: Cramping and vaginal bleeding with passage of clots. COMPARISON: Previous day TECHNIQUE: Transabdominal imaging of the uterus was performed utilizing cohen scale and color doppler technique, with m-mode imaging. FINDINGS: There is a well-formed intrauterine gestational sac containing a pole measuring 8.8 mm corresponding to gestational age of 7 weeks, 0 days. cardiac activity detected at 130 bpm. Normal yolk sac is present. There is a small subchorionic hematoma present along the inferior aspect of the chorion towards the lower uterine segment. US/US OB limited IMPRESSION: * Single live intrauterine fetus with estimated gestational age by ultrasound of 7 weeks, 0 days, for an estimated date of delivery 01/27/2022. * Small subchorionic hematoma.
[2021-06-10 03:27] VITALS: BP 125/56; PULSE 92; RESP 16; TEMP 35.9; O2SAT 98; BMI 29.2
--- NOTE | 2021-06-10 03:39 | PC.NURSE ---
pt to room, chg into gown and awaiting md's eval.
[2021-06-10 03:51] LABS: Glucose Urine UA NEG (NEG); Leukocyte Esterase Urine NEG (NEG); Nitrite Urine POS (NEG); Specific Gravity - Urine >= 1.030 (1.005-1.025); UACC Culture Trigger YES; Urine Blood 2+ (NEG); Urine Ketones NEG (NEG); Urine Protein NEG (NEG-TRACE)
--- NOTE | 2021-06-10 04:04 | ED_ITS ---
HPI - General Chief complaint: Vaginal Bleeding Stated complaint: 7 wks preg & bleeding Time Seen by Provider: 06/10/21 04:02 Source: patient Mode of arrival: ambulatory History of Present Illness HPI Narrative: 20-year-old female, gravid, 7 weeks gestation, with history of SAB February/2021 now presents with light pink bleeding since Saturday and has had ultrasound on 06/06 as well as 06/09 without acute findings. She now presents with onset of ?a huge gush of blood and 3 large clots? approximately 1-1/2 hours ago. Patient states that the bleeding has slowed down and denies dizziness, palpitations, shortness of breath. Related Data Previous Rx's Medication Instructions Recorded ondansetron 4 mg disintegrating 4 mg PO Q8H PRN #20 tab 03/14/21 tablet vitamin with calcium 1 tab PO DAILY #30 tab 05/29/21 no.72-iron 27 mg-folic acid 1 mg tablet ( Vitamins Plus Low Iron) nitrofurantoin 100 mg PO Q12H 7 Days #14 cap 06/10/21 monohydrate/macrocrystals 100 mg capsule (Macrobid) Allergies Allergy/AdvReac Type Severity Reaction Status Date / Time No Known Allergies Allergy Verified 05/29/21 14:04 [No Known Allergies*] Review of Systems Review of Systems: Pertinent positives and negatives as stated in HPI 10 point review of systems is otherwise negative. [facility] Past Medical History Source: nursing notes reviewed Medical History Elevated blood pressure reading History of spontaneous Incomplete No known health problems Threatened Surgical History H/O dilation and curettage No history of previous surgery Family History Family History Other No significant medical problems Social History Social History Alcohol intake: never Patient Tobacco Use Status: Never used Tobacco Substance Use Type: Marijuana Advance Directives: No Advance Directives Information Provided: No Patient : Yes Gender identity: female Physical Exam Vital Signs: Vital Signs: Last Vital Signs Temp 96.6 F L 06/10/21 03:27 Pulse 92 06/10/21 03:27 Resp 16 06/10/21 03:27 BP 125/56 L 06/10/21 03:27 Pulse Ox 98 06/10/21 03:27 Body Mass Index 29.2 VITAL SIGNS: Reviewed. GENERAL: Well developed, well nourished, in no acute distress. HEAD: Normocephalic/atraumatic EYES: PERRLA, EOMI EARS: Ext canals without abnormality OROPHARYNX: no oral lesions noted, posterior pharynx clear LUNGS: Normal breath sounds. No adventitious sounds or accessory muscle use. SpO2<98> CARDIOVASCULAR: Regular rate and rhythm without noted murmurs, no JVD or lower extremity edema. ABDOMEN: Soft, non-tender, non-distended with bowel sounds. NEUROLOGIC: Alert and oriented x 4. Course Course Course Narrative: 20-year-old female with history and clinical presentation suspicious for SAB, review of prior blood type being from February shows A positive. Review of all investigations demonstrates a UTI and otherwise IUP with closed cervical os but presence of subchorionic hematoma. All results and findings discussed with patient at bedside and she was discharged home in stable condition. MDM - OB/Uterine Contractions Lab Data Labs: Lab Results 06/10/21 06/10/21 Range/Units 03:45 03:45 Urine Color YELLOW Urine Appearance CLEAR Urine pH 6.0 (5.0-8.0) Ur Specific [place] >= 1.030 H (1.005-1.025) Urine Protein NEG (NEG-TRACE) MG/DL Urine Glucose (UA) NEG (NEG) MG/DL Urine Ketones NEG (NEG) MG/DL Urine Blood 2+ H (NEG) Urine Nitrite POS H (NEG) Ur Leukocyte Esterase NEG (NEG) Urine RBC 10-14 H (0) /HPF Urine WBC 0-2 (0-4) /HPF Ur Squamous Epith Cells 1+ /LPF Urine Bacteria TRACE /LPF Urine Mucus 3+ /LPF Urine Test POSITIVE H (NEGATIVE) Discharge Plan Discharge Clinical Impression: Threatened , UTI (urinary tract infection) Patient Disposition: Home, Self-Care Instructions: Threatened Miscarriage (ED), Urinary Tract Infection in (ED) Additional Instructions: 1. Continue with vitamins. 2. 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 Return to the ER for acute worsening of symptoms. Prescriptions: New nitrofurantoin monohyd/m-cryst [Macrobid] 100 mg capsule 100 mg PO Q12H 7 Days Qty: 14 RF: 0 No Action ondansetron 4 mg tablet,disintegrating 4 mg PO Q8H PRN (Reason: nausea and vomiting) Qty: 20 RF: 0 Vitamin Plus Low Iron 27 mg iron- 1 mg tablet 1 tab PO DAILY Qty: 30 RF: 11 Referrals: Candida Thurston CNM [Certified Nurse Senior Technical Recruiter] - 2 days Toshia Smiley MD [Primary Care Provider] - 2 days
[2021-06-10 04:17] LABS: Bacteria Urine TRACE /LPF; Squamous Epithelial Cell Urine 1+ /LPF; WBC Urine 0-2 /HPF (0-4)
[2021-06-10 04:18] LABS: Mucus Urine 3+ /LPF; UPreg QC Valid YES; Urine Pregnancy POSITIVE (NEGATIVE)
[2021-06-10] MEDS: Acetaminophen 325 MG TABLET 975 MG PO (04:37)
--- NOTE | 2021-06-10 04:38 | PC.NURSE ---
PT MEDICATED FOR ABD PAIN AND CRAMPING. PT AWAITING U/S TECH FOR U/S. WILL CONTINUE TO MONITOR PT.
[2021-06-10 04:46] LABS: Appearance Urine CLEAR; Color Urine YELLOW
[2021-06-10] MEDS: Nitrofurantoin Monohyd/M-Cryst 100 MG CAPSULE PO (05:58)
== END 2021-06-10 06:05 | disposition home or self-care (01) ==
PROVIDERS: Emergency Provider Student in an Organized Health Care Education/Training Program; PCP Internal Medicine
DX: O20.0 Threatened abortion (principal); O23.41 Unspecified infection of urinary tract in pregnancy, first trimester; Z3A.01 Less than 8 weeks gestation of pregnancy
CPT/HCPCS: 76815; 76817; 81001; 81025; 87086; 99283; 99284

== ENCOUNTER 2021-06-12 11:49 | Outpatient (REF) | payer OTHER, SELFPAY ==
[2021-06-13 00:58] LABS: CT PCR NOT DETECTED (Not Detect.); NG PCR NOT DETECTED (Not Detect.)
[2021-06-13 08:34] LABS: BV Int Neg Control Negative (Negative); BV Int Pos Control Positive (Positive)
== END 2021-06-12 11:50 | disposition home or self-care (01) ==
LOC: HO.LAB 11:49
PROVIDERS: PCP Internal Medicine; Visit Provider Advanced Practice Midwife
DX: O20.9 Hemorrhage in early pregnancy, unspecified (principal); N93.9 Abnormal uterine and vaginal bleeding, unspecified; Z20.2 Contact with and (suspected) exposure to infections with a predominantly sexual mode of transmission
CPT/HCPCS: 87480; 87491; 87510; 87591; 87660; 99212

== ENCOUNTER 2021-06-21 13:52 | Outpatient (REF) | payer OTHER, SELFPAY | END 2021-06-21 13:53 | disposition home or self-care (01) | LOC: HO.LAB 13:52 | PROVIDERS: PCP Internal Medicine; Visit Provider Advanced Practice Midwife | DX: O26.891 Other specified pregnancy related conditions, first trimester (principal); R03.0 Elevated blood-pressure reading, without diagnosis of hypertension; Z3A.08 8 weeks gestation of pregnancy; Z83.3 Family history of diabetes mellitus | CPT/HCPCS: 99212 ==

== ENCOUNTER 2022-04-26 14:10 | Outpatient (REF) | payer OTHER, SELFPAY ==
[2022-04-27 01:18] LABS: CT PCR NOT DETECTED (Not Detect.); NG PCR NOT DETECTED (Not Detect.)
[2022-04-27 08:34] LABS: BV Int Neg Control Negative (Negative); BV Int Pos Control Positive (Positive)
== END 2022-04-26 14:11 | disposition home or self-care (01) ==
LOC: HO.LAB 14:10
PROVIDERS: Visit Provider Advanced Practice Midwife
DX: Z01.419 Encounter for gynecological examination (general) (routine) without abnormal findings (principal); Z11.3 Encounter for screening for infections with a predominantly sexual mode of transmission; Z11.4 Encounter for screening for human immunodeficiency virus [HIV]; Z11.8 Encounter for screening for other infectious and parasitic diseases; Z11.59 Encounter for screening for other viral diseases
CPT/HCPCS: 87480; 87491; 87510; 87591; 87660; 88142

== ENCOUNTER → 2022-06-18 11:21 | Outpatient (BNVA) | payer OTHER, SELFPAY | PROVIDERS: PCP Internal Medicine; Visit Provider Surgery | DX: L72.9 Follicular cyst of the skin and subcutaneous tissue, unspecified (principal) | CPT/HCPCS: 99202 ==

== ENCOUNTER 2022-06-22 08:09 | Outpatient (REF) | payer OTHER, SELFPAY ==
[2022-06-22 08:20] LABS: MANUAL DIFF FLAG NO
[2022-06-22 08:47] LABS: Basophils Absolute Auto 0.1 X10*3/uL (0.0-0.2); Basophils Percent Auto 0.6 % (0-2); Eosinophils Absolute Auto 0.1 X10*3/uL (0.0-0.4); Eosinophils Percent Auto 1.5 % (0-4); Hematocrit 38.5 % (37.0-47.0); Hemoglobin 12.4 g/dl (12.0-16.0); Imm Gran Abs Auto 0.02 X10*3/uL (0.00-0.03); Imm Gran Pct Auto 0.2 % (0.0-0.4); Lymphocytes Absolute Auto 3.5 X10*3/uL (1.2-4.9); Lymphocytes Percent Auto 42.2 % (20-40); Mean Corpuscular HGB Conc 32.2 g/dl (31.0-35.0); Mean Corpuscular Hemoglobin 23.2 pg (27.0-33.0); Mean Platelet Volume 10.6 fL (9.4-12.3); Monocytes Absolute Auto 0.4 X10*3/uL (0.1-1.2); Neutrophils Absolute Auto 4.2 x10*3/uL (2.0-8.3); Neutrophils Percent Auto 50.5 % (45-73); Platelet Count 292 X10*3/uL (160-400); Red Blood Count 5.35 X10*6/uL (4.20-5.50); Red Cell Distribution Width 14.8 % (11.0-16.0); White Blood Count 8.2 X10*3/uL (4.8-10.8)
[2022-06-22 09:13] LABS: Alanine Aminotransferase 26 U/L (0-31); Albumin Level 4.2 g/dL (3.5-5.0); Alkaline Phosphatase 163 U/L (39-117); Anion Gap 15 (12-20); Aspartate Amino Transferase 14 U/L (5-31); Bilirubin Total 0.5 mg/dL (0.0-1.0); Blood Urea Nitrogen 15 mg/dL (9-16); Calcium 9.7 mg/dL (8.4-10.2); Carbon Dioxide 22 mmol/L (22-29); Chloride 107 mmol/L (96-108); Cholesterol 134 mg/dL; Estimated Glomerular Filt Rate > 60; Glucose Random 93 mg/dL (60-115); HDL Cholesterol 41 mg/dL; LDL Cholesterol Calculated 76 mg/dl; Potassium 4.3 mmol/L (3.3-5.1); Sodium 140 mmol/L (135-145); Total Protein 7.4 g/dL (6.5-8.0); Triglycerides 88 mg/dL
[2022-06-22 09:34] LABS: Free T4 (Free Thyroxine) 2.23 ng/dL (0.71-1.85); Thyroid Stimulating Hormone < 0.01 uIU/mL (0.32-4.0); Vitamin D 25-OH Total 25.7 ng/mL (>30)
[2022-06-22 09:35] LABS: Syphilis Screen Nonreactive (Nonreactive)
[2022-06-22 09:36] LABS: HBsAGNum1 0.25 S/CO (0.00-0.99); HIV AB/AG Nonreactive (Nonreactive); HIV Num 1 0.12 S/CO (0.00-0.99); Hepatitis B Surface Antigen Negative (Negative); ~HepC Num1 0.05 S/CO (0.00-0.79); ~Hepatitis C Antibody Nonreactive (Nonreactive)
[2022-06-22 09:48] LABS: Folate 7.8 ng/mL (> or = 4.0); Vitamin B12 243 pg/mL (200-900)
== END 2022-06-22 08:10 | disposition home or self-care (01) ==
LOC: HO.LAB 08:09
PROVIDERS: Advanced Practice Midwife; PCP Internal Medicine; Visit Provider Internal Medicine
DX: E05.90 Thyrotoxicosis, unspecified without thyrotoxic crisis or storm (principal); E78.00 Pure hypercholesterolemia, unspecified; Z11.4 Encounter for screening for human immunodeficiency virus [HIV]; Z11.59 Encounter for screening for other viral diseases; Z13.220 Encounter for screening for lipoid disorders; Z11.3 Encounter for screening for infections with a predominantly sexual mode of transmission; Z13.29 Encounter for screening for other suspected endocrine disorder; Z86.32 Personal history of gestational diabetes
CPT/HCPCS: 11982; 36415; 80053; 80061; 82306; 82607; 82746; 84439; 84443; 85025; 86780; 86803; 87340; 87389

== ENCOUNTER 2022-07-02 13:52 | Outpatient (REF) | payer OTHER, SELFPAY ==
[2022-07-02 15:58] LABS: Free T4 (Free Thyroxine) 2.17 ng/dL (0.71-1.85); Thyroid Stimulating Hormone < 0.01 uIU/mL (0.32-4.0)
[2022-07-04 02:21] LABS: Thyroglobulin Antibodies <1 IU/mL (< or = 1); Thyroid Peroxidase Antibodies 29 IU/mL (<9)
[2022-07-04 03:26] LABS: Triiodothyronine T3 Total 349 ng/dL (76-181)
[2022-07-05 15:57] LABS: Thyroid Stimulating Immunoglob 203 % baseline (<140)
[2022-07-06 21:11] LABS: Thyrotropin Receptor Antibody 6.88 IU/L (<=2.00)
== END 2022-07-02 13:53 | disposition home or self-care (01) ==
LOC: HO.LAB 13:52
PROVIDERS: PCP Internal Medicine; Visit Provider Internal Medicine
DX: E05.90 Thyrotoxicosis, unspecified without thyrotoxic crisis or storm (principal)
CPT/HCPCS: 36415; 83520; 84439; 84443; 84445; 84480; 86376; 86800; 99202

== ENCOUNTER 2022-07-06 07:46 | Outpatient (REF) | payer OTHER, SELFPAY ==
[2022-07-06 07:47] VITALS: BP 127/72; PULSE 101; RESP 16; TEMP 36.3; O2SAT 98; BMI 26.4
--- NOTE | 2022-07-06 08:31 | PM.PROC ---
Brief Operative Note Date of procedure: 07/06/22 Pre-op diagnosis: Sebaceous cyst, scalp measuring 2.6 x 2.5 cm Post-op diagnosis: same Procedure: Excision of sebaceous cyst, scalp Anesthesia: local Surgeon: Diaz Maldonado Estimated blood loss (mL): 2 Pathology: none sent Condition: stable Disposition: same day
[2022-07-06 08:32] VITALS: BP 140/88; PULSE 95; RESP 16; O2SAT 98
--- NOTE | 2022-07-06 08:34 | W.PM.OPN ---
Operative Note Operative Note Date of Service: 07/06/22 Narrative: Preop diagnosis: [Sebaceous cyst, frontal scalp 2.6 x 2.5 cm] Postop diagnosis: [same] Procedure: [Excision of sebaceous cyst, frontal scalp] Surgeon: Diaz Maldonado MD Assist: [Non] Anesthesia: [2% lidocaine with epi] Estimated blood loss: [3cc] Specimen: [None, discarded to medical weight] Intraoperative findings: [Classic, malodorous cyst with sebum on section] Indications: [The patient is a 22-year-old woman with a slowly enlarging sebaceous cyst with no stigmata of infection that is causing personal grooming issues, so I recommended excision. The inherent risks of bleeding, scar formation, infection and recurrence were discussed and apparently understood.] Procedure: [The patient was identified in the minor procedure room and an appropriate time-out performed. She was placed supine with her head elevated approximately 30 degrees. Betadine was used as prep that was allowed to dry then she was draped in the usual manner. Local was infiltrated with excellent effect and a transverse incision made sharply and carried into the subcutaneous tissues. The cyst was removed entirely, including the cyst wall. The pocket was irrigated with the remaining his saline and inspected for hemostasis which was good. Interrupted 3-0 polypropylene sutures were used to approximate the skin. The area was washed and dried and bacitracin applied followed by an ice pack. Patient tolerated the procedure well and was discharged in improved condition Written instructions and verbal instructions were reviewed. The patient will continue an ice pack for the next few days to minimize swelling and pain. She will follow up and 7-10 days for suture removal. She will contact the office if she has increasing pain, redness or drainage.]
== END 2022-07-06 07:47 | disposition home or self-care (01) ==
LOC: HO.MS 07:46
PROVIDERS: PCP Internal Medicine; Visit Provider Surgery
PROC: (CPT 11423; principal; 2022-07-06 08:00)
DX: L72.3 Sebaceous cyst (principal)
CPT/HCPCS: 11423

== ENCOUNTER 2022-07-20 08:54 | Outpatient (REF) | payer OTHER, SELFPAY ==
--- NOTE | ~2022-07-20 | US_ITS ---
EXAMINATION: US THYROID CLINICAL INFORMATION: Thyrotoxicosis, unspecified without thyrotoxic crisis or storm. COMPARISON: None TECHNIQUE: Linear transducer grayscale and color Doppler examination with attention to the region of the thyroid. FINDINGS: SIZE: Measurements of the thyroid lobes and nodules are given in sagittal, anteroposterior and transverse dimensions respectively. Right Thyroid Lobe: 7.0 x 2.0 x 2.6 cm, volume 19.1 mL. Parenchyma: The gland echotexture is heterogeneous. Thyroid vascularity is increased. Left Thyroid Lobe: 6.0 x 1.9 x 2.3 cm, volume 13.7 mL. Parenchyma: The gland echotexture is heterogeneous. Thyroid vascularity is increased. Isthmus: 0.3 cm in maximum AP dimension. NODULES: No focal thyroid nodule is seen. NODES: Abnormal appearing right level 2 lymph node which measures 1.2 cm in transverse dimension but does not demonstrate a normal fatty hilum. US/US thyroid IMPRESSION: Enlarged, heterogeneous, hypervascular thyroid gland. No discrete thyroid nodules are demonstrated. There is a mildly prominent right level 2 lymph node which measures 1.2 cm in maximum transverse dimension and does not have a normal-appearing fatty hilum. Clinical correlation recommended.
== END 2022-07-20 08:55 | disposition home or self-care (01) ==
LOC: HO.HMGCX 08:54
PROVIDERS: PCP Internal Medicine; Visit Provider Internal Medicine
DX: E05.90 Thyrotoxicosis, unspecified without thyrotoxic crisis or storm (principal)
CPT/HCPCS: 76536

== ENCOUNTER → 2022-07-24 10:36 | Outpatient (REF) | payer OTHER, SELFPAY ==
--- NOTE | ~2022-07-24 | NM_ITS ---
EXAMINATION: THYROID UPTAKE AND SCAN CLINICAL INFORMATION: Thyrotoxicosis, unspecified without thyrotoxic crisis or storm. COMPARISON: Thyroid ultrasound done on 07/20/2022. TECHNIQUE: Following the oral administration of 266 microcuries of I-123 sodium iodide, thyroid uptake was performed and expressed as a percentage of the administrated dose. Gamma scintillation camera images of the thyroid in the anterior and right and left anterior oblique views were obtained using a pinhole collimator following the administration of 10 mCi Tc-99m pertechnetate (radiotracer was injected through left antecubital superficial vein, without complications). FINDINGS: The uptake is 61.59% at 2 hours and 86.19% at 24 hours (Normal radioiodine uptake at 24 hours is 10% to 30%). The radioiodine is abnormal, significantly higher. The thyroid gland is enlarged, shows heterogeneous subtle small subcentimeter cold nodules on both the radioiodine as well as technetium pertechnetate images, at mid to inferior pole of both lobes of the gland, without any definite sonographic correlate. NM/NM thyroid w uptake IMPRESSION: Abnormal study showing features consistent with Graves' disease. A few superimposed subtle subcentimeter cold nodules are present at mid to inferior part of both lobes of the gland, without any definite sonographic correlate.
== END ==
LOC: HO.NUCMED 10:36
PROVIDERS: PCP Internal Medicine; Visit Provider Internal Medicine
DX: E05.90 Thyrotoxicosis, unspecified without thyrotoxic crisis or storm (principal)
CPT/HCPCS: 78014; A9512; A9516

== ENCOUNTER 2022-08-02 09:55 | Outpatient (REF) | payer OTHER, SELFPAY ==
[2022-08-02 11:14] LABS: Free T4 (Free Thyroxine) 2.44 ng/dL (0.71-1.85); HCG Quantitative < 2 mIU/mL; Thyroid Stimulating Hormone < 0.01 uIU/mL (0.32-4.0)
[2022-08-03 21:26] LABS: Triiodothyronine T3 Total 386 ng/dL (76-181)
== END 2022-08-02 09:56 | disposition home or self-care (01) ==
LOC: HO.LAB 09:55
PROVIDERS: PCP Internal Medicine; Visit Provider Internal Medicine
DX: E05.90 Thyrotoxicosis, unspecified without thyrotoxic crisis or storm (principal)
CPT/HCPCS: 36415; 84439; 84443; 84480; 84702

== ENCOUNTER → 2022-08-27 13:54 | Outpatient (BNVA) | payer OTHER, SELFPAY | PROVIDERS: PCP Internal Medicine; Visit Provider Advanced Practice Midwife | DX: Z30.41 Encounter for surveillance of contraceptive pills (principal) | CPT/HCPCS: 99212 ==

== ENCOUNTER 2022-09-05 11:32 | Outpatient (REF) | payer OTHER, SELFPAY ==
[2022-09-05 13:11] LABS: Free T4 (Free Thyroxine) 1.89 ng/dL (0.71-1.85)
[2022-09-06 16:33] LABS: Triiodothyronine T3 Total 261 ng/dL (76-181)
== END 2022-09-05 11:33 | disposition home or self-care (01) ==
LOC: HO.LAB 11:32
PROVIDERS: PCP Internal Medicine; Visit Provider Internal Medicine
DX: E05.00 Thyrotoxicosis with diffuse goiter without thyrotoxic crisis or storm (principal); Z79.899 Other long term (current) drug therapy
CPT/HCPCS: 36415; 84439; 84480; 99212

== ENCOUNTER 2022-09-20 14:06 | Outpatient (REF) | payer OTHER, SELFPAY ==
[2022-09-20 15:33] LABS: Free T4 (Free Thyroxine) 1.52 ng/dL (0.71-1.85)
[2022-09-22 07:17] LABS: Triiodothyronine T3 Total 251 ng/dL (76-181)
== END 2022-09-20 14:07 | disposition home or self-care (01) ==
LOC: HO.LAB 14:06
PROVIDERS: PCP Internal Medicine; Visit Provider Internal Medicine
DX: E05.00 Thyrotoxicosis with diffuse goiter without thyrotoxic crisis or storm (principal)
CPT/HCPCS: 36415; 84439; 84480

== ENCOUNTER 2022-10-09 11:56 | Outpatient (REF) | payer OTHER, SELFPAY ==
[2022-10-09 13:13] LABS: Free T4 (Free Thyroxine) 1.79 ng/dL (0.71-1.85); Thyroid Stimulating Hormone < 0.01 uIU/mL (0.32-4.0)
[2022-10-11 07:23] LABS: Triiodothyronine T3 Total 213 ng/dL (76-181)
== END 2022-10-09 11:57 | disposition home or self-care (01) ==
LOC: HO.LAB 11:56
PROVIDERS: PCP Internal Medicine; Visit Provider Internal Medicine
DX: E05.00 Thyrotoxicosis with diffuse goiter without thyrotoxic crisis or storm (principal)
CPT/HCPCS: 36415; 84439; 84443; 84480

== ENCOUNTER 2022-10-17 13:54 | Outpatient (REF) | payer OTHER, SELFPAY ==
[2022-10-17 15:53] LABS: Albumin Level 4.3 g/dL (3.5-5.0); Free T4 (Free Thyroxine) 1.59 ng/dL (0.71-1.85)
[2022-10-17 16:03] LABS: Vitamin D 25-OH Total 12.7 ng/mL (>30)
[2022-10-18 07:17] LABS: Triiodothyronine T3 Total 186 ng/dL (76-181)
[2022-10-18 14:14] LABS: Calcium (PTHI) 9.4 mg/dL (8.6-10.2); PTHI 83 pg/mL (16-77)
== END 2022-10-17 13:55 | disposition home or self-care (01) ==
LOC: HO.LAB 13:54
PROVIDERS: PCP Internal Medicine; Visit Provider Internal Medicine
DX: E05.00 Thyrotoxicosis with diffuse goiter without thyrotoxic crisis or storm (principal); E55.9 Vitamin D deficiency, unspecified; R63.4 Abnormal weight loss; R00.2 Palpitations; Z79.899 Other long term (current) drug therapy
CPT/HCPCS: 36415; 82040; 82306; 83970; 84439; 84480; 99212

== ENCOUNTER 2022-10-30 11:12 | Outpatient (REF) | payer OTHER, SELFPAY ==
[2022-10-30 13:58] LABS: Free T4 (Free Thyroxine) 1.44 ng/dL (0.71-1.85)
[2022-10-31 21:28] LABS: Triiodothyronine T3 Total 195 ng/dL (76-181)
== END 2022-10-30 11:13 | disposition home or self-care (01) ==
LOC: HO.LAB 11:12
PROVIDERS: PCP Internal Medicine; Visit Provider Internal Medicine
DX: E05.00 Thyrotoxicosis with diffuse goiter without thyrotoxic crisis or storm (principal)
CPT/HCPCS: 36415; 84439; 84480

== ENCOUNTER 2022-11-13 07:01 | Outpatient (REF) | payer OTHER, SELFPAY ==
[2022-11-13 08:24] LABS: Free T4 (Free Thyroxine) 1.23 ng/dL (0.71-1.85); Thyroid Stimulating Hormone < 0.01 uIU/mL (0.32-4.0)
[2022-11-14 22:52] LABS: Triiodothyronine T3 Total 125 ng/dL (76-181)
== END 2022-11-13 07:02 | disposition home or self-care (01) ==
LOC: HO.LAB 07:01
PROVIDERS: PCP Internal Medicine; Visit Provider Internal Medicine
DX: E05.00 Thyrotoxicosis with diffuse goiter without thyrotoxic crisis or storm (principal)
CPT/HCPCS: 36415; 84439; 84443; 84480

== ENCOUNTER → 2022-11-14 09:00 | Outpatient (BNVA) | payer OTHER, SELFPAY | PROVIDERS: PCP Internal Medicine; Visit Provider Internal Medicine | DX: E05.00 Thyrotoxicosis with diffuse goiter without thyrotoxic crisis or storm (principal); E55.9 Vitamin D deficiency, unspecified | CPT/HCPCS: 99212 ==

== ENCOUNTER 2022-11-14 10:00 | Outpatient (RCR) | payer OTHER, SELFPAY | END 2022-12-11 15:34 | disposition home or self-care (01) | LOC: HO.PT 10:00 | PROVIDERS: PCP Internal Medicine; Visit Provider Advanced Practice Midwife | DX: R32 Unspecified urinary incontinence (principal) | CPT/HCPCS: 97110; 97112; 97140; 97161 ==

== ENCOUNTER 2022-11-26 14:18 | Outpatient (REF) | payer OTHER, SELFPAY ==
[2022-11-26 15:26] LABS: Free T4 (Free Thyroxine) 0.99 ng/dL (0.71-1.85)
[2022-11-27 01:40] LABS: Triiodothyronine T3 Total 105 ng/dL (76-181)
== END 2022-11-26 14:19 | disposition home or self-care (01) ==
LOC: HO.LAB 14:18
PROVIDERS: PCP Internal Medicine; Visit Provider Internal Medicine
DX: E05.00 Thyrotoxicosis with diffuse goiter without thyrotoxic crisis or storm (principal)
CPT/HCPCS: 36415; 84439; 84480

== ENCOUNTER 2022-12-19 08:13 | Outpatient (REF) | payer OTHER, SELFPAY ==
[2022-12-19 09:35] LABS: Free T4 (Free Thyroxine) 0.47 ng/dL (0.71-1.85); Thyroid Stimulating Hormone 0.47 uIU/mL (0.32-4.0)
[2022-12-20 04:54] LABS: Triiodothyronine T3 Total 94 ng/dL (76-181)
== END 2022-12-19 08:14 | disposition home or self-care (01) ==
LOC: HO.LAB 08:13
PROVIDERS: PCP Internal Medicine; Visit Provider Internal Medicine
DX: E05.00 Thyrotoxicosis with diffuse goiter without thyrotoxic crisis or storm (principal)
CPT/HCPCS: 36415; 84439; 84443; 84480

== ENCOUNTER 2023-01-11 14:05 | Outpatient (REF) | payer OTHER, SELFPAY ==
[2023-01-11 16:29] LABS: Free T4 (Free Thyroxine) 0.82 ng/dL (0.71-1.85)
[2023-01-13 08:09] LABS: Triiodothyronine T3 Total 134 ng/dL (76-181)
== END 2023-01-11 14:06 | disposition home or self-care (01) ==
LOC: HO.LAB 14:05
PROVIDERS: PCP Internal Medicine; Visit Provider Internal Medicine
DX: E05.00 Thyrotoxicosis with diffuse goiter without thyrotoxic crisis or storm (principal)
CPT/HCPCS: 36415; 84439; 84480

== ENCOUNTER 2023-02-05 15:34 | Outpatient (REF) | payer OTHER, SELFPAY ==
[2023-02-05 18:11] LABS: Free T4 (Free Thyroxine) 0.73 ng/dL (0.71-1.85); Thyroid Stimulating Hormone 4.03 uIU/mL (0.32-4.0)
[2023-02-07 00:43] LABS: Triiodothyronine T3 Total 118 ng/dL (76-181)
== END 2023-02-05 15:35 | disposition home or self-care (01) ==
LOC: HO.LAB 15:34
PROVIDERS: PCP Internal Medicine; Visit Provider Internal Medicine
DX: E05.00 Thyrotoxicosis with diffuse goiter without thyrotoxic crisis or storm (principal)
CPT/HCPCS: 36415; 84439; 84443; 84480

== ENCOUNTER → 2023-02-13 08:55 | Outpatient (BNVA) | payer OTHER, SELFPAY | PROVIDERS: PCP Internal Medicine; Visit Provider Internal Medicine | DX: E05.00 Thyrotoxicosis with diffuse goiter without thyrotoxic crisis or storm (principal); E55.9 Vitamin D deficiency, unspecified | CPT/HCPCS: 99212 ==

== ENCOUNTER → 2023-02-20 14:54 | Outpatient (REF) | payer OTHER, SELFPAY ==
--- NOTE | 2023-02-20 14:56 | CA_ITS ---
Transthoracic Echocardiogram Patient (Last, First, Middle): Laura Han, Gender: Female Date of : 2000 Age: 22 Procedure Date: 02/20/2023 Procedure Type: Transthoracic Echocardiogram Location: OP Height: 162.56 cm Weight: 72.58 kg BSA: 1.78 m2 Heart Rate: 72 bpm BP: 114 / 64 mmHg Insulation Helper: ROMÁN Referring MD: Dwayne Mckinley MD Production Material Coordinator: Tono Amador MD Symptoms: murmur Study Quality: Adequate w fair apical images ECG Rhythm: Sinus Conclusions: - Essentially normal study Findings Left Ventricle Normal left ventricular size, thickness, and systolic function. The visually estimated ejection fraction is between 55-60%. Diastolic function is normal for age. Right Ventricle Normal right ventricular cavity size and systolic function. Atria Both atria are normal in size. There is no evidence of interatrial shunt. Aortic Valve Normal aortic valve structure and function. There is no aortic valve stenosis. There is no aortic valve regurgitation. Mitral Valve Normal mitral valve structure and function. There is trace mitral valve regurgitation. There is no mitral valve stenosis. Pulmonic Valve The pulmonic valve is normal. There is trace pulmonic valve regurgitation. Tricuspid Valve Normal tricuspid valve structure. There is trace tricuspid valve regurgitation. The right ventricular systolic pressure is normal. The right ventricular systolic pressure is 18 mmHg. Normal right atrial pressure. There is no evidence of pulmonary hypertension. Great Vessels All visible segments of the aorta are normal in size. The pulmonary artery was not well visualized. Venous The inferior vena cava is normal in size and collapses greater than 50% with inspiration. Pericardium/Pleural There is no evidence of pericardial effusion. Prior Study Comparison No prior study available for comparison. Measurements 2D Linear Measurements IVSd: 0.65 0.6-0.9/0.6-1.0 cm LVIDd: 5.38 3.9-5.3/4.2-5.9 cm LVIDd Index: 3.02 2.4-3.2/2.2-3.1 cm/m2 LVIDs: 3.89 2.0-3.6 cm LVPWd: 0.53 0.7-1.1 cm LA Diam: 3.40 2.7-3.8/3.0-4.0 cm LAIDs Index: 1.91 1.5-2.3 cm/m2 LV Mass: 132.58 67-162/88-224 g LV Mass Index: 74.49 43-95/49-115 g/m2 LVOT Diam: 2.20 3.0+(-)1.3 cm 2D Systolic Function EF 4C: 54.90 >55% Mitral Valve MV Pk E: 0.78 MV PK A: 0.54 MV Decel Time: 179.00 E/A: 1.40 E'Lateral: 9.14 E'Medial: 10.40 E/E' Med: 7.50 E/E' Lat: 8.50 PHT: 52.00 MVA PHT: 4.23 Decel Wilbarger: 4.36 Aortic Valve AoV Pk Chicho: 1.27 AoV Mn Chicho: 0.87 AoV VTI: 0.23 AoV Pk Grad: 6.00 Aov Mn Grad: 3.00 ESTEFANY Cont.VTI: 3.08 LVOT LVOT Pk Chicho: 1.02 LVOT Mn Chicho: 0.76 LVOT VTI: 0.19 LVOT Pk Grad: 4.00 LVOT Mn Grad: 3.00 LVOT Diam: 2.20 LVOT Area: 3.80 Diastolic Function MV Pk E: 0.78 MV Pk A: 0.54 E/A: 1.40 E'Medial: 10.40 E/E' Med: 7.50 E' Laterial: 9.14 E/E' Lat: 8.50 Right Ventricle TAPSE (mm): 18.20 TVS' Chicho: 11.80 Tricuspid Valve TR Pk Chicho: 1.96 TR Pk Grad: 15.00 RA Press: 3.00 RVSP: 18.00 Great Vessels Aorta Sinus of Valsalva: 3.10 2.0-3.[address] Ridge: 2.64 1.7-3.4 cm Ao Asc: 2.90 2.1-3.4 cm Pulmonary Veins Pulm Vein S/D 0.80 Pulmonary Valve PV Pk Chicho: 0.99 Peak PV Grad: 4.00 Updated in Other Vendor System with Status of Final Tono Amador MD electronically signed on 02/21/2023 11:43:41 AM with status of Final
== END ==
LOC: HO.CARD 14:54
PROVIDERS: PCP Internal Medicine; Visit Provider Internal Medicine
DX: E05.00 Thyrotoxicosis with diffuse goiter without thyrotoxic crisis or storm (principal)
CPT/HCPCS: 93306

== ENCOUNTER 2023-03-08 11:38 | Outpatient (REF) | payer OTHER, SELFPAY ==
[2023-03-08 13:07] LABS: Albumin Level 4.5 g/dL (3.5-5.0); Estimated Glomerular Filt Rate > 60
[2023-03-08 13:08] LABS: Thyroid Stimulating Hormone 3.08 uIU/mL (0.32-4.0); Vitamin D 25-OH Total 13.3 ng/mL (>30)
[2023-03-10 06:04] LABS: Triiodothyronine T3 Total 104 ng/dL (76-181)
[2023-03-11 11:48] LABS: Calcium (PTHI) 9.3 mg/dL (8.6-10.2); PTHI 42 pg/mL (16-77)
== END 2023-03-08 11:39 | disposition home or self-care (01) ==
LOC: HO.LAB 11:38
PROVIDERS: PCP Internal Medicine; Visit Provider Internal Medicine
DX: E05.00 Thyrotoxicosis with diffuse goiter without thyrotoxic crisis or storm (principal); E55.9 Vitamin D deficiency, unspecified
CPT/HCPCS: 36415; 82040; 82306; 82565; 83970; 84439; 84443; 84480

== ENCOUNTER 2023-04-09 10:59 | Outpatient (REF) | payer OTHER, SELFPAY ==
[2023-04-09 12:52] LABS: Free T4 (Free Thyroxine) 0.66 ng/dL (0.71-1.85); Thyroid Stimulating Hormone 5.92 uIU/mL (0.32-4.0)
[2023-04-11 06:09] LABS: Triiodothyronine T3 Total 103 ng/dL (76-181)
== END 2023-04-09 11:00 | disposition home or self-care (01) ==
LOC: HO.LAB 10:59
PROVIDERS: Visit Provider Internal Medicine
DX: E05.00 Thyrotoxicosis with diffuse goiter without thyrotoxic crisis or storm (principal)
CPT/HCPCS: 36415; 84439; 84443; 84480

== ENCOUNTER 2023-04-30 12:57 | Outpatient (REF) | payer OTHER, SELFPAY ==
[2023-05-01 05:26] LABS: CT PCR NOT DETECTED (Not Detect.); NG PCR NOT DETECTED (Not Detect.)
[2023-05-01 13:06] LABS: BV Int Neg Control Negative (Negative); BV Int Pos Control Positive (Positive)
== END 2023-04-30 12:58 | disposition home or self-care (01) ==
LOC: HO.LNP 12:57
PROVIDERS: PCP Internal Medicine; Visit Provider Advanced Practice Midwife
DX: Z20.2 Contact with and (suspected) exposure to infections with a predominantly sexual mode of transmission (principal); E05.00 Thyrotoxicosis with diffuse goiter without thyrotoxic crisis or storm
CPT/HCPCS: 0353U; 81025; 87480; 87510; 87660

== ENCOUNTER 2023-04-30 13:53 | Outpatient (REF) | payer OTHER, SELFPAY ==
[2023-04-30 16:24] LABS: Free T4 (Free Thyroxine) 0.52 ng/dL (0.71-1.85)
[2023-05-02 09:03] LABS: Triiodothyronine T3 Total 101 ng/dL (76-181)
== END 2023-04-30 13:54 | disposition home or self-care (01) ==
LOC: HO.LAB 13:53
PROVIDERS: Internal Medicine; PCP Internal Medicine; Visit Provider Advanced Practice Midwife
DX: E05.00 Thyrotoxicosis with diffuse goiter without thyrotoxic crisis or storm (principal)
CPT/HCPCS: 36415; 84439; 84480

== ENCOUNTER 2023-06-04 13:40 | Outpatient (REF) | payer OTHER, SELFPAY ==
[2023-06-04 19:20] LABS: Albumin Level 4.2 g/dL (3.5-5.0); Calcium 9.2 mg/dL (8.4-10.2)
[2023-06-04 19:44] LABS: Free T4 (Free Thyroxine) 0.95 ng/dL (0.71-1.85); Thyroid Stimulating Hormone 8.86 uIU/mL (0.32-4.0); Vitamin D 25-OH Total 34.6 ng/mL (>30)
[2023-06-05 19:59] LABS: Triiodothyronine T3 Total 138 ng/dL (76-181)
[2023-06-06 19:09] LABS: Calcium (PTHI) 9.3 mg/dL (8.6-10.2); PTHI 73 pg/mL (16-77)
== END 2023-06-04 13:41 | disposition home or self-care (01) ==
LOC: HO.LAB 13:40
PROVIDERS: PCP Internal Medicine; Visit Provider Internal Medicine
DX: E05.00 Thyrotoxicosis with diffuse goiter without thyrotoxic crisis or storm (principal); E55.9 Vitamin D deficiency, unspecified
CPT/HCPCS: 36415; 82040; 82306; 82310; 83970; 84439; 84443; 84480

== ENCOUNTER 2023-06-19 07:33 | Outpatient (AMB) | payer OTHER, SELFPAY ==
--- NOTE | 2023-06-19 07:34 | MHC.OFFVIS ---
Intake Intake Visit Reasons: F/U Hyperthyroidism Intake Note: Hyperthyroidism follow up visit. Research Manager Required: No Allergies No Known Allergies [No Known Allergies*] Allergy (Verified 06/19/23 07:47) Medication List - Last Reconciled 06/19/23 by Teetee Bernard, desogestrel-ethinyl estradiol 0.15-0.03 mg (Apri) 1 tab PO DAILY PRN levothyroxine 150 mcg PO DAILY 30 days HPI HPI Comments History of Present Illness Details 1 YO F with no significant PMHx who is seen in F/U for Grave's Disease. She delivered a healthy baby girl in Dec 2021. A few months after (she is unsure of timeline) she began experiencing symptoms of hyperthyroidism with tremors, palpitations, weight loss of 50 lbs over 3 months, and also frequent bowel movements of 4x per day. She presented to her PCP and TSH was checked, which was completely supressed with an elevated FT4. She was subsequently referred to Endocrinology. Labs were repeated which confirmed Grave's disease with elevated FT4 and TT3, and a supressed TSH. TSI, TRAB and TPO antibodies were positive. She underwent a thyroid uptake and scan which revealed uptake of 61.59% at 2 hours and 86.19% at 24 hours. There was mention of some cold areas bilaterally, but US revealed no discrete nodules identified. Pattern was consistent with Grave's disease. She was started on Methimazole but then underwent a total thyroidectomy 05/08/2023. Surgical pathology was benign. Postoperatively she was started on levothyroxine 137 mcg PO daily. Labs revealed hypothyroidism, so her levothyroxine was increased to 150 mcg PO daily. She is not yet due to repeat labs until 4 weeks from now. She did see Dr. Lauren Hoover for her Grave's eye disease at [facility] earlier this week and is following with her regularly. She denies any blurred vision, double vision or retroorbital pain/pressure. She does report some swelling in the eyes. She has not yet called Dr. Hoover's office to follow up. Thyroid US: 07/20/2022 Right Thyroid Lobe: 7.0 x 2.0 x 2.6 cm, volume 19.1 mL. Parenchyma: The gland echotexture is heterogeneous. Thyroid vascularity is increased. Left Thyroid Lobe: 6.0 x 1.9 x 2.3 cm, volume 13.7 mL. Parenchyma: The gland echotexture is heterogeneous. Thyroid vascularity is increased. Isthmus: 0.3 cm in maximum AP dimension. NODULES: No focal thyroid nodule is seen. NODES: Abnormal appearing right level 2 lymph node which measures 1.2 cm in transverse dimension but does not demonstrate a normal fatty hilum. Thyroid Uptake and Scan: 07/25/2022 FINDINGS: The uptake is 61.59% at 2 hours and 86.19% at 24 hours (Normal radioiodine uptake at 24 hours is 10% to 30%). The radioiodine is abnormal, significantly higher. The thyroid gland is enlarged, shows heterogeneous subtle small subcentimeter cold nodules on both the radioiodine as well as technetium pertechnetate images, at mid to inferior pole of both lobes of the gland, without any definite sonographic correlate. NM/NM thyroid w uptake IMPRESSION: ? Abnormal study showing features consistent with Graves' disease. A few superimposed subtle subcentimeter cold nodules are present at mid to inferior part of both lobes of the gland, without any definite sonographic correlate. Labs: Laboratory Tests 06/04/23 06/04/23 13:52 13:52 Albumin 4.2 25-OH Vitamin D To capri 34.6 TSH 8.86 H Free T4 0.95 Total T3 138 PTH Intact 73 Calcium (PTH Intac t) 9.3 PFSH Medical History Cervical cancer screening Elevated blood pressure reading Etonogestrel implant for control Family history of diabetes mellitus (DM) Graves disease Graves' eye disease History of spontaneous Hx gestational diabetes Hyperthyroidism Menorrhagia Nexplanon in place Potential exposure to STD Scalp cyst Vitamin D deficiency Surgical History H/O dilation and curettage History of History of thyroidectomy Family History Mother Hypertension Father No problems noted. Brother No problems noted. Sister No problems noted. Daughter No problems noted. Maternal Grandmother Alcohol abuse Hypertension Thyroid disease Maternal Grandfather Hypertension Myocardial infarct Maternal Aunt Ovarian cancer Other No significant medical problems Social History Housing: Apartment Alcohol intake: never Patient Tobacco Use Status: Never used Tobacco e-Cigarette/Vaping Use: Never Used Second Hand Smoke Exposure: No Substance Use Type: Marijuana Current occupational status: unemployed Gender identity: Female Cognitive needs: No Hearing needs: No Vision needs: Yes Female Reproductive History Menstrual Age of Menarche: 12 Assessment & Plan Assessment & Plan (1) Postsurgical hypothyroidism: Code(s): E89.0 - Postprocedural hypothyroidism Plan: Patient with postoperative hypothyroidism after a total thyroidectomy for Grave's disease. She remains on levothyroxine 150 mcg PO daily. Will be due for repeat labs in 4 weeks time, after her dose was increased due to hypothyroidism. She will call the office to request lab results. All of her questions were answered. She is in agreement with this plan of care. I spent 20 minutes in reviewing the record, seeing the patient and documenting in the medical record, including 5 minutes on the phone with the patient. (2) Graves' eye disease: Comment: Status post thyroidectomy total Dr. Jackson April 2023 Code(s): E05.00 - Thyrotoxicosis with diffuse goiter without thyrotoxic crisis or storm Plan: Patient with Grave's ophthalmopathy. She is following with Dr. Lauren Hoover at [facility]. I advised she call today for an appointment to discuss her periorbital edema. She states she will do so. (3) Vitamin D deficiency: Code(s): E55.9 - Vitamin D deficiency, unspecified Plan: WNL, no changes. Telehealth Telehealth Location of provider rendering services: practice address Location of patient: address on file Patient Identification confirmed using: Name, : Yes Telehealth method: voice only Patient verbally consented to treatment: Yes Patient verbally consented to billing insurance company: Yes Patient informed of any privacy concerns related to visit: Yes Coding Level of Care Code Tele Est Pt Level 3 (75958) Diagnoses Postsurgical hypothyroidism E89.0 Graves' eye disease E05.00 Vitamin D deficiency E55.9
== END 2023-06-19 13:11 | disposition home or self-care (01) ==
LOC: HO.ENCR 07:33
PROVIDERS: PCP Internal Medicine; Visit Provider Internal Medicine
DX: E89.0 Postprocedural hypothyroidism (principal); E05.00 Thyrotoxicosis with diffuse goiter without thyrotoxic crisis or storm; E55.9 Vitamin D deficiency, unspecified
CPT/HCPCS: 99213

== ENCOUNTER → 2023-06-19 07:33 | Outpatient (BNVA) | payer OTHER, SELFPAY | PROVIDERS: PCP Internal Medicine; Visit Provider Internal Medicine ==

== ENCOUNTER 2023-08-01 16:34 | Outpatient (REF) | payer OTHER, SELFPAY ==
[2023-08-01 18:07] LABS: Free T4 (Free Thyroxine) 1.04 ng/dL (0.71-1.85); Thyroid Stimulating Hormone 2.87 uIU/mL (0.32-4.0)
[2023-08-02 08:11] LABS: Syphilis Screen Nonreactive (Nonreactive)
[2023-08-02 08:35] LABS: HBsAGNum1 0.28 S/CO (0.00-0.99); HIV AB/AG Nonreactive (Nonreactive); HIV Num 1 0.05 S/CO (0.00-0.99); Hepatitis B Surface Antigen Negative (Negative); ~HepC Num1 0.06 S/CO (0.00-0.79); ~Hepatitis C Antibody Nonreactive (Nonreactive)
[2023-08-05 00:37] LABS: Triiodothyronine T3 Total 163 ng/dL (76-181)
== END 2023-08-01 16:35 | disposition home or self-care (01) ==
LOC: HO.LAB 16:34
PROVIDERS: Advanced Practice Midwife; PCP Internal Medicine; Visit Provider Internal Medicine
DX: E89.0 Postprocedural hypothyroidism (principal); E05.00 Thyrotoxicosis with diffuse goiter without thyrotoxic crisis or storm; Z11.3 Encounter for screening for infections with a predominantly sexual mode of transmission; Z12.4 Encounter for screening for malignant neoplasm of cervix
CPT/HCPCS: 36415; 84439; 84443; 84480; 86780; 86803; 87340; 87389

== ENCOUNTER 2023-08-07 13:04 | Outpatient (AMB) | payer OTHER, SELFPAY ==
--- NOTE | 2023-08-07 13:18 | A.OFFVIS_ITS ---
Intake Vital Signs 08/07/23 13:19 Height 5 ft 4 in Weight 185 lb BMI 31.8 BP 114/70 Intake Visit Reasons: BV Intake Note: The patient agreed to use of a medical lead during this encounter. Scribed for ROSALIA Mckeon by Jenny Noble medical lead, on 08/07/2023 at 1:49 pm EST. Head Housekeeper: Head Housekeeper Present (Grazyna) Allergies No Known Allergies [No Known Allergies*] Allergy (Verified 08/07/23 13:19) Is last menstrual period known: Yes Last menstrual period: 07/11/23 HPI HPI Comments History of Present Illness Details She is here today with complaints of vaginal odor and has been drinking cranberry juice. Reports regular monthly menses. Currently taking Apri OCP's. [facility] Medical History Vitamin D deficiency Graves' eye disease Graves disease Hyperthyroidism Scalp cyst Menorrhagia Hx gestational diabetes Cervical cancer screening Family history of diabetes mellitus (DM) History of spontaneous Elevated blood pressure reading Surgical History History of thyroidectomy History of H/O dilation and curettage Family History Mother Hypertension Father No problems noted. Brother No problems noted. Sister No problems noted. Daughter No problems noted. Maternal Grandmother Alcohol abuse Hypertension Thyroid disease Maternal Grandfather Hypertension Myocardial infarct Maternal Aunt Ovarian cancer Other No significant medical problems Social History Housing: Apartment Alcohol intake: never Patient Tobacco Use Status: Never used Tobacco e-Cigarette/Vaping Use: Never Used Second Hand Smoke Exposure: No Substance Use Type: Marijuana Current occupational status: unemployed Gender identity: Female Cognitive needs: No Hearing needs: No Vision needs: Yes Female Reproductive History Menstrual Age of Menarche: 12 Date of last menstrual period: 07/11/23 control method: pills (Apri ) Physical Exam Vital Signs: Last Vital Signs BP 114/70 08/07/23 13:19 BMI result Body Mass Index 31.8 Const General: cooperative, healthy appearing, comfortable, no acute distress, well developed, alert and awake Other: General: Yes bladder normal to palpation External Female Exam: normal external appearance and normal appearance of the urethra Speculum Exam - Vagina: normal appearance of the vagina, normal palpation and ab normal vaginal discharge white and frothy Speculum Exam - Cervix: normal appearance of the cervix and normal palpation Bimanual exam- vagina & uterus: normal bimanual exam, normal palpation, bladder normal to palpation and normal palpation Bimanual Exam- Adnexa, other: normal adnexae and no masses Results AMB Urinalysis, Automated UA Leukoctes 0 Vita/uL Last Edit by Anastasiya Santamaria [facility] on 08/07/23 14:01 UA Nitrite Negative Last Edit by Anastasiya Santamaria [facility] on 08/07/23 14:01 UA Urobilinogen 0 mg/dL Last Edit by Anastasiya Santamaria [facility] on 08/07/23 14:0 1 UA Protein 0.5 mg/dL Last Edit by Anastasiya Santamaria [facility] on 08/07/23 14:01 UA pH 6.0 Last Edit by Anastasiya Santamaria [facility] on 08/07/23 14:01 UA Blood 1 Jack/uL Last Edit by Anastasiya Santamaria [facility] on 08/07/23 14:01 UA Specific [place] 1.020 Last Edit by Anastasiya Santamaria [facility] on 08/07/23 14:01 UA Ketone Negative Last Edit by Anastasiya Santamaria [facility] on 08/07/23 14:01 UA Bilirubin 0 mg/dL Last Edit by Anastasiya Santamaria [facility] on 08/07/23 14:01 UA Glucose 0 mg/dL Last Edit by Anastasiya Santamaria [facility] on 08/07/23 14:01 Results Reviewed Results Reviewed: Laboratory Last Values Urine pH (Auto) 6.0 08/07/23 13:56 Specific [place] (Auto) 1.020 08/07/23 13:56 Urine Protein (Auto) 0.5 mg/dL 08/07/23 13:56 Glucose (UA)(Auto) 0 mg/dL 08/07/23 13:56 Urine Ketones (Auto) Negative 08/07/23 13:56 Urine Blood (Auto) 1 Jack/uL 08/07/23 13:56 Urine Nitrite (Auto) Negative 08/07/23 13:56 Urine Bilirubin (Auto) 0 mg/dL 08/07/23 13:56 Urine Urobilinogen (Auto) 0 mg/dL 08/07/23 13:56 Leukocyte Esterase (Auto) 0 Vita/uL 08/07/23 13:56 Assessment & Plan Assessment & Plan (1) Vaginal odor: Code(s): N89.8 - Other specified noninflammatory disorders of vagina Plan: Discussed: BV testing and GC/CT panel done today. Await results and treat accordingly. Recommend Boric acid; protocol given and reviewed. All of her questions and concerns were addressed to the best of my ability and shared decision making. She is agreeable to plan of care. Orders: Orders Bacterial Vaginosis Panel Today N89.8 - Other specified noninflammatory disorders of vagina CT NG by PCR Today N89.8 - Other specified noninflammatory disorders of vagina AMB Urinalysis Automated Today N89.8 - Other specified noninflammatory disorders of vagina Coding Level of Care Code Est Pt Level 3 (23755) Diagnoses Vaginal odor N89.8
[2023-08-07 13:19] VITALS: BP 114/70; BMI 31.8
== END 2023-08-07 16:01 | disposition home or self-care (01) ==
PROVIDERS: PCP Internal Medicine; Visit Provider Advanced Practice Midwife
DX: N89.8 Other specified noninflammatory disorders of vagina (principal)
CPT/HCPCS: 99213

== ENCOUNTER 2023-08-07 13:04 | Outpatient (REF) | payer OTHER, SELFPAY | END 2023-08-07 13:05 | disposition home or self-care (01) | LOC: HO.LAB 13:04 | PROVIDERS: PCP Internal Medicine; Visit Provider Advanced Practice Midwife | DX: N89.8 Other specified noninflammatory disorders of vagina (principal) | CPT/HCPCS: 81003; 99212 ==

== ENCOUNTER 2023-08-07 13:56 | Outpatient (REF) | payer OTHER, SELFPAY ==
[2023-08-07 18:30] LABS: CT PCR NOT DETECTED (Not Detect.); NG PCR NOT DETECTED (Not Detect.)
[2023-08-08 13:00] LABS: BV Int Neg Control Negative (Negative); BV Int Pos Control Positive (Positive)
== END 2023-08-07 13:57 | disposition home or self-care (01) ==
LOC: HO.LNP 13:56
PROVIDERS: Visit Provider Advanced Practice Midwife
DX: N89.8 Other specified noninflammatory disorders of vagina (principal)
CPT/HCPCS: 0353U; 87480; 87510; 87660

== ENCOUNTER 2023-09-09 14:53 | Outpatient (AMB) | payer OTHER, SELFPAY ==
[2023-09-09 14:55] VITALS: BP 118/82; PULSE 81; O2SAT 100; BMI 31.9
--- NOTE | 2023-09-09 14:55 | MHC.PC.OV ---
Vital Signs 09/09/23 14:55 Height 5 ft 4 in Weight 186 lb BMI 31.9 BP 118/82 Blood Pressure Location Lt brachial Position Sitting Pulse 81 Pulse Source Pulse Oximeter Pulse Oximetry (%) 100 Oxygen Delivery Method Room Air Intake Visit Reasons: pe Intake Note: Patient is here today for a physical. 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 Allergies No Known Allergies [No Known Allergies*] Allergy (Verified 09/09/23 15:00) Medication List - Last Reconciled 09/09/23 by Dwayne Mckinley MD desogestrel-ethinyl estradiol 0.15-0.03 mg (Apri) 1 tab PO DAILY PRN levothyroxine 150 mcg PO DAILY 30 days Tobacco use date assessed: 09/09/23 Dental Screening Dental Screen Date: 09/09/23 Did you have a dental visit in the last 12 months?: Yes Did you have a dental problem in the last 6 months where you did not have access to dental care?: No Was dental information given to patient?: Patient has dentist HPI pe HPI Details 23-year-old obese female with a history of Graves disease status post thyroidectomy April 2023 with hypothyroidism GERD coming in for physical exam last seen in May 2023. 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 Brother No problems noted. Sister No problems noted. Daughter No problems noted. Maternal Grandmother Alcohol abuse Hypertension Thyroid disease Maternal Grandfather Hypertension Myocardial infarct Maternal Aunt Ovarian cancer Other No significant medical problems Social History Housing: Apartment Alcohol intake: never Patient Tobacco Use Status: Never used Tobacco e-Cigarette/Vaping Use: Never Used Second Hand Smoke Exposure: No Substance Use Type: Marijuana Current occupational status: unemployed Gender identity: Female Cognitive needs: No Hearing needs: No Vision needs: Yes Female Reproductive History Menstrual Age of Menarche: 12 Questionnaire PHQ-9 Over the last 2 weeks, how often have you been bothered by any of the following problems? 1. Little interest or pleasure in doing things: not at all 2. Feeling down, depressed, or hopeless: not at all 3. Trouble falling or staying asleep, or sleeping too much: not at all 4. Feeling tired or having little energy: not at all 5. Poor appetite or overeating: not at all 6. Feeling bad about yourself - or that you are a failure or have let yourself or your family down: not at all 7. Trouble concentrating on things, such as reading the newspaper or watching television: not at all 8. Moving or speaking so slowly that other people could have noticed. Or the opposite - being so fidgety or restless that you have been moving around a lot more than usual: not at all 9. Thoughts that you would be better off or of hurting yourself in some way: not at all Total score: 0 Depression Screening Interpretation: Negative Depression Screening Done: Yes Source: Developed by Drs. Mark Barton, Anika Randle, Refugio Arambula and colleagues, with an educational pushpa from [employer]. Thrive Questionnaire Date Thrive assessed: 09/09/23 I am a: Patient What is your living situation today?: I have a steady place to live Within the past 12 months, did the food you bought not last and you didn't have the money to get more?: Never true Within the past 12 months, did you worry whether your food would run out before you got money to buy more?: Never true AUDIT C Alcohol Use Questionnaire (AUDIT-C) 1. How often do you have a drink containing alcohol?: Never 2. How many drinks containing alcohol do you have on a typical day when you are drinking?: 1 or 2 3. How often do you have six or more drinks on one occasion?: Never Total Score: 0 HARSHAL-7 AMB Questionnaire HARSHAL-7 Date HARSHAL - 7 assessed: 09/09/23 Feeling nervous, anxious, or on edge: 0 = Not at all Not being able to stop or control worryin = Not at all Worrying too much about different things: 0 = Not at all Trouble relaxin = Not at all Being so restless that it is hard to sit still: 0 = Not at all Becoming easily annoyed or irritable: 0 = Not at all Feeling afraid as if something awful might happen: 0 = Not at all Total HARSHAL-7 score (0-4 normal; 5-9 mild; 10-14 moderate; 15-21 severe): 0 Source: Developed by Drs. Mark Barton, Anika Randle, Refugio Arambula and colleagues, with an educational pushpa from [employer]. Review of Systems Const Denies poor appetite and Denies weakness Eyes Denies no additional complaints ENT Reports Normal hearing present, Denies dizziness, Denies nasal congestion, Denies tinnitus and Denies sore throat Card Denies chest pain, Denies syncope, Denies rapid heart rate and Denies dyspnea Resp Denies cough and Denies dyspnea GI Denies change in stool character, Reports constipation, Denies diarrhea, Denies nausea and Denies vomiting Denies urinary frequency, Denies difficulty voiding and Denies dysuria Neuro Reports Normal hearing present, Denies confusion, Denies dizziness, Denies syncope and Denies weakness Psych Denies confusion Physical exam (Primary Care) Vital Signs: Last Vital Signs Pulse 81 09/09/23 14:55 BP 118/82 09/09/23 14:55 Pulse Ox 100 09/09/23 14:55 Oxygen Delivery Method Room Air 09/09/23 14:55 BMI result Body Mass Index 31.9 Tobacco/Smoking Status: Tobacco use Status Tobacco use date assessed 09/09/23 09/09/23 14:57 Patient Tobacco Use Status Never used Tobacco 09/09/23 14:57 e-Cigarette/Vaping Use Never Used 09/09/23 14:57 PHQ-9: PHQ-9 Score PHQ-9: Total score 0 09/09/23 15:04 Depression Screening Interpretation: Negative Thrive Assessment: Date of Thrive Assessment Date Thrive assessed 09/09/23 09/09/23 15:04 Const General: No confusion Orientation/consciousness: No confusion HENMT Head: Yes normocephalic Ears: external ears normal and TM's normal bilaterally Face and sinus: Yes normal facial exam Mouth: moist mucous membranes Throat: Yes tonsils normal Eyes Conjunctivae: conjunctivae normal Pupils: Equal, round and reactive pupils present and Pupil accommodation reflex normal Direct Ophthalmoscopy: normal light reflex Neck Neck: No lymphadenopathy Thyroid: Thyroid normal Chest Chest palpation & inspection: normal inspection of the chest Resp Effort & Inspection: normal respiratory effort and no audible wheezes Auscultation: clear to auscultation bilaterally, no crackles, no wheezes and lung sounds not diminished Cardio Rate: regular rate Rhythm: regular rhythm Peripheral pulses: radial pulses present and dorsalis pedis present GI Palpation (GI): no masses Auscultation: normal bowel sounds and normoactive bowel sounds Rectal Exam - Female: deferred Skin General skin exam: no rashes or lesions noted Rashes: no rashes Neuro General: No confusion Cranial nerves: Yes Equal, round and reactive pupils present and Yes Normal hearing present Cognition (Neuro): normal cognition Gait exam (Neuro): Normal gait present Motor exam (neuro): 5/5 motor strength present throughout Deep tendon reflexes (DTR's): Right brachioradialis reflex intensity grade: 2+, Left brachioradialis reflex intensity grade: 2+, Right patellar reflex intensity grade: 2+ and Left patellar reflex intensity grade: 2+ Extrem General: No edema Office Procedures Flu Questionnaire Does the patient have a severe egg allergy?: No Does the patient have severe life threatening allergies?: No Does the patient have a fever or illness today?: No Has the patient ever had Guillain-Java Syndrome?: No Has the patient ever had any past reaction to a flu shot?: No Immunizations flu vacc [id number] 6mos up(PF) 60 mcg(15 mcgx4)/0.5 mL IM syringe Performing Provider: Dwayne Mckinley MD Performing Location: [facility] Administered by: TATIANA Mcgregor on 09/09/23 15:04 Dose Route Admin Location Dispensed Lot Number Expiration Date NDC Milieu Counselor 0.5 mL IM Left Deltoid 0.5 mL [id number] 05/10/24 [id number] [employer] VIS Given Date VIS Provided VIS Publication Date 09/09/23 Single Vaccine 21 Eligibility Eligibility Date Funding Source Not [facility] Eligible 09/09/23 Private Assessment and Plan Assessment & Plan (1) Annual physical exam: Code(s): Z00.00 - Encounter for general adult medical examination without abnormal findings (2) Graves' eye disease: Comment: Status post thyroidectomy total Dr. Jackson April 2023 Code(s): E05.00 - Thyrotoxicosis with diffuse goiter without thyrotoxic crisis or storm Plan: Patient has been following up with Endocrinology continue with thyroid medication July 2023 last blood (3) Obesity (BMI 30.0-34.9): Code(s): E66.9 - Obesity, unspecified Plan: Diet and exercise (4) Postsurgical hypothyroidism: Code(s): E89.0 - Postprocedural hypothyroidism Plan: Continue with thyroid medication Orders: Orders Influenza [id number] Immunization Today Z23 - Encounter for immunization Medications: Changed From levothyroxine 150 mcg PO DAILY 30 days 30 tabs 3RF E89.0 - Postprocedural hypothyroidism To levothyroxine 150 mcg PO DAILY 90 days 90 tabs 2RF E89.0 - Postprocedural hypothyroidism Coding Level of Care Code Est Pt Prev Care 18-39y(47723) Diagnoses Annual physical exam Z00.00 Graves' eye disease E05.00 Obesity (BMI 30.0-34.9) E66.9 Postsurgical hypothyroidism E89.0
== END 2023-09-09 16:14 | disposition home or self-care (01) ==
PROVIDERS: PCP Internal Medicine; Visit Provider Internal Medicine
DX: Z23 Encounter for immunization (principal); Z00.00 Encounter for general adult medical examination without abnormal findings; E05.00 Thyrotoxicosis with diffuse goiter without thyrotoxic crisis or storm; E89.0 Postprocedural hypothyroidism; Z86.32 Personal history of gestational diabetes
CPT/HCPCS: 90471; 90686; 99395

== ENCOUNTER 2023-12-09 10:40 | Outpatient (REF) | payer OTHER, SELFPAY ==
[2023-12-09 13:17] LABS: Free T4 (Free Thyroxine) 0.58 ng/dL (0.71-1.85); Thyroid Stimulating Hormone 45.41 uIU/mL (0.32-4.0)
== END 2023-12-09 10:41 | disposition home or self-care (01) ==
LOC: HO.LAB 10:40
PROVIDERS: PCP Internal Medicine; Visit Provider Internal Medicine Endocrinology, Diabetes & Metabolism
DX: E05.00 Thyrotoxicosis with diffuse goiter without thyrotoxic crisis or storm (principal)
CPT/HCPCS: 36415; 84439; 84443

== ENCOUNTER 2023-12-11 13:25 | Outpatient (AMB) | payer OTHER, SELFPAY ==
[2023-12-11 13:31] VITALS: BP 114/90; PULSE 62; BMI 33.0
--- NOTE | 2023-12-11 13:31 | MHC.OFFVIS ---
Intake Vital Signs 12/11/23 13:31 Height 5 ft 4 in Weight 192 lb 3.889 oz BMI 33.0 BP 114/90 H Blood Pressure Location Lt brachial Position Sitting Pulse 62 Pulse Source Pulse Oximeter Intake Visit Reasons: F/U Hyperthyroidism/CONFIRMED Intake Note: Patient present today for Hyperthyroidism follow up visit. Last seen by Dr. Ferrara on 06/19/2023. 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 The patient last saw Dr. Ferrara on 06/19/2023 She delivered a healthy baby girl in Dec 2021. A few months after (she is unsure of timeline) she began experiencing symptoms of hyperthyroidism with tremors, palpitations, weight loss of 50 lbs over 3 months, and also frequent bowel movements of 4x per day. She presented to her PCP and TSH was checked, which was completely supressed with an elevated FT4. She was subsequently referred to Endocrinology. Labs were repeated which confirmed Grave's disease with elevated FT4 and TT3, and a supressed TSH. TSI, TRAB and TPO antibodies were positive. She underwent a thyroid uptake and scan which revealed uptake of 61.59% at 2 hours and 86.19% at 24 hours. There was mention of some cold areas bilaterally, but US revealed no discrete nodules identified. Pattern was consistent with Grave's disease. She was started on Methimazole but then underwent a total thyroidectomy 05/08/2023. Surgical pathology was benign. Postoperatively she was started on levothyroxine 137 mcg PO daily. Labs revealed hypothyroidism, so her levothyroxine was increased to 150 mcg PO daily. She is not yet due to repeat labs until 4 weeks from now. She did [facility] Dr[facility] and is following with her regularly. She denies any blurred vision, double vision or retroorbital pain/pressure. She does report some swelling in the eyes. She has not yet called Dr. Hoover's office to follow up. Thyroid US: 07/20/2022 Right Thyroid Lobe: 7.0 x 2.0 x 2.6 cm, volume 19.1 mL. Parenchyma: The gland echotexture is heterogeneous. Thyroid vascularity is increased. Left Thyroid Lobe: 6.0 x 1.9 x 2.3 cm, volume 13.7 mL. Parenchyma: The gland echotexture is heterogeneous. Thyroid vascularity is increased. Isthmus: 0.3 cm in maximum AP dimension. NODULES: No focal thyroid nodule is seen. NODES: Abnormal appearing right level 2 lymph node which measures 1.2 cm in transverse dimension but does not demonstrate a normal fatty hilum. Thyroid Uptake and Scan: 07/25/2022 FINDINGS: The uptake is 61.59% at 2 hours and 86.19% at 24 hours (Normal radioiodine uptake at 24 hours is 10% to 30%). The radioiodine is abnormal, significantly higher. The thyroid gland is enlarged, shows heterogeneous subtle small subcentimeter cold nodules on both the radioiodine as well as technetium pertechnetate images, at mid to inferior pole of both lobes of the gland, without any definite sonographic correlate. NM/NM thyroid w uptake IMPRESSION: ? Abnormal study showing features consistent with Graves' disease. A few superimposed subtle subcentimeter cold nodules are present at mid to inferior part of both lobes of the gland, without any definite sonographic correlate. Labs: Laboratory Tests 06/04/23 06/04/23 13:52 13:52 Albumin 4.2 25-OH Vitamin D To capri 34.6 TSH 8.86 H Free T4 0.95 Total T3 138 PTH Intact 73 Calcium (PTH Intac t) 9.3 PFSH Medical History Vitamin D deficiency Graves' eye disease Graves disease Hyperthyroidism Scalp cyst Menorrhagia Hx gestational diabetes Cervical cancer screening Family history of diabetes mellitus (DM) History of spontaneous Elevated blood pressure reading Surgical History History of thyroidectomy History of H/O dilation and curettage Family History Mother Hypertension Father No problems noted. Brother No problems noted. Sister No problems noted. Daughter No problems noted. Maternal Grandmother Alcohol abuse Hypertension Thyroid disease Maternal Grandfather Hypertension Myocardial infarct Maternal Aunt Ovarian cancer Other No significant medical problems Social History Housing: Apartment Alcohol intake: never Patient Tobacco Use Status: Never used Tobacco e-Cigarette/Vaping Use: Never Used Second Hand Smoke Exposure: No Substance Use Type: Marijuana Current occupational status: unemployed Gender identity: Female Cognitive needs: No Hearing needs: No Vision needs: Yes Female Reproductive History Menstrual Age of Menarche: 12 Physical Exam Vital Signs: Last Vital Signs Pulse 62 12/11/23 13:31 BP 114/90 H 12/11/23 13:31 BMI result Body Mass Index 33.0 Const Other: Healed scar status post thyroidectomy. This is the absence of proptosis or exophthalmos Assessment & Plan Assessment & Plan (1) Postsurgical hypothyroidism: Code(s): E89.0 - Postprocedural hypothyroidism Plan: This 23-year-old female with a history of post-surgical hypothyroidism after total thyroidectomy for Graves disease. She is currently on levothyroxine 150 mcg but admits to noncompliance has elevated TSH. Plan is to stress to the patient compliance with levothyroxine and will recheck TSH and free T4 in about 4-6 weeks' time Medications: Refilled levothyroxine 150 mcg PO DAILY 90 tabs 2RF 90 days E89.0 - Postprocedural hypothyroidism Coding Level of Care Code Est Pt Level 3 (90240) Diagnoses Postsurgical hypothyroidism E89.0
== END 2023-12-11 13:48 | disposition home or self-care (01) ==
PROVIDERS: PCP Internal Medicine; Visit Provider Internal Medicine Endocrinology, Diabetes & Metabolism
DX: E89.0 Postprocedural hypothyroidism (principal)
CPT/HCPCS: 99213

== ENCOUNTER → 2023-12-11 13:25 | Outpatient (BNVA) | payer OTHER, SELFPAY | PROVIDERS: PCP Internal Medicine; Visit Provider Internal Medicine Endocrinology, Diabetes & Metabolism | DX: E89.0 Postprocedural hypothyroidism (principal); Z79.899 Other long term (current) drug therapy | CPT/HCPCS: 99212 ==

== ENCOUNTER 2024-01-09 11:24 | Outpatient (REF) | payer OTHER, SELFPAY ==
[2024-01-09 12:35] LABS: Free T4 (Free Thyroxine) 1.33 ng/dL (0.71-1.85); Thyroid Stimulating Hormone 2.68 uIU/mL (0.32-4.0)
== END 2024-01-09 11:25 | disposition home or self-care (01) ==
LOC: HO.LAB 11:24
PROVIDERS: PCP Internal Medicine; Visit Provider Internal Medicine Endocrinology, Diabetes & Metabolism
DX: R13.10 Dysphagia, unspecified (principal); E05.00 Thyrotoxicosis with diffuse goiter without thyrotoxic crisis or storm
CPT/HCPCS: 36415; 84439; 84443

== ENCOUNTER 2024-05-04 13:17 | Outpatient (REF) | payer OTHER, SELFPAY ==
[2024-05-05 13:38] LABS: Bacterial Vaginosis PCR POSITIVE (Negative); Candida Group PCR NOT DETECTED (Not Detect); Candida glab krusei PCR NOT DETECTED (Not Detect); Trichomonas vaginalis PCR NOT DETECTED (Not Detect)
[2024-05-05 14:00] LABS: CT PCR NOT DETECTED (Not Detect.); NG PCR NOT DETECTED (Not Detect.)
== END 2024-05-04 13:18 | disposition home or self-care (01) ==
LOC: HO.LAB 13:17
PROVIDERS: PCP Internal Medicine; Visit Provider Advanced Practice Midwife
DX: Z01.419 Encounter for gynecological examination (general) (routine) without abnormal findings (principal); N89.8 Other specified noninflammatory disorders of vagina; Z20.2 Contact with and (suspected) exposure to infections with a predominantly sexual mode of transmission
CPT/HCPCS: 0352U; 0353U; 99395

== ENCOUNTER 2024-05-04 13:46 | Outpatient (AMB) | payer OTHER, SELFPAY ==
[2024-05-04 14:02] VITALS: BP 122/70; BMI 33.3
--- NOTE | 2024-05-04 14:02 | A.OFFVIS_ITS ---
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 Required: No Electronics Worker Services: Electronics Worker Present Information Interpreted: clinical only Biofuels Production Technician: Biofuels Production Technician Present Allergies No Known Allergies [No Known Allergies*] Allergy (Verified 05/04/24 14:03) Medication List - Last Reconciled 05/04/24 by Cassie North CNM desogestrel-ethinyl estradiol 0.15-0.03 mg (Apri) 1 tab PO DAILY PRN levothyroxine 150 mcg PO DAILY 90 days Is last menstrual period known: Yes Last menstrual period: 05/05/24 Do you need a note to return to daycare/school/sports/work: No HPI HPI 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 She is on her thyroid medicine and she says her viral loads well-controlled and her eyes are well controlled as well so is the thyroid is well controlled. She likes being on control pills seems to work the best for her compared to other methods she has used and the side effects are preferable to the Nexplanon. [facility] Medical History Vitamin D deficiency Graves' eye disease Graves disease Hyperthyroidism Scalp cyst Menorrhagia Hx gestational diabetes Cervical cancer screening Family history of diabetes mellitus (DM) History of spontaneous Elevated blood pressure reading Surgical History History of thyroidectomy History of H/O dilation and curettage Family History Mother Hypertension Father No problems noted. Brother No problems noted. Sister No problems noted. Daughter No problems noted. Maternal Grandmother Alcohol abuse Hypertension Thyroid disease Maternal Grandfather Hypertension Myocardial infarct Maternal Aunt Ovarian cancer Other No significant medical problems Social History Housing: Apartment Alcohol intake: never Patient Tobacco Use Status: Never used Tobacco e-Cigarette/Vaping Use: Never Used Second Hand Smoke Exposure: No Substance Use Type: Marijuana Current occupational status: unemployed Gender identity: Female Cognitive needs: No Hearing needs: No Vision needs: Yes Female Reproductive History Menstrual Age of Menarche: 12 Duration of menses: 3-5 days Date of last menstrual period: 05/05/24 control method: pills Total pregnancies: 2 Full term: 1 Date of last pap smear: 04/27/22 (negative) History of abnormal pap smear: No Physical Exam Vital Signs: Last Vital Signs BP 122/70 05/04/24 14:02 BMI result Body Mass Index 33.3 Const General: healthy appearing, comfortable, no acute distress, well developed and alert Nutritional Appearance: average body habitus Orientation/consciousness: patient oriented x3 Limitations: no limitations HEENT Head: Yes normocephalic Neck Neck: Yes normal visual inspection Chest Chest palpation & inspection: normal inspection of the chest Breast/axilla inspection: normal inspection of the breasts and normal inspection of the axillae Breast/axilla palpation: normal palpation of the breasts and normal palpation of the axillae Resp Effort & Inspection: normal respiratory effort GI Inspection: Yes normal to inspection, No Abdominal wall edema and No distended Palpation (GI): Soft to palpation and nontender Other: External exam vagina pink and moist cervix is multiparous pink smooth healthy appearing normal scant clear mucus. It is somewhat slippery with ovulatory mucus patient denies any miss pill. She did however have sex a day or so ago so this could represent post intercourse discharge we will wait culture results. It was very clear and slippery an abundant. Cervix mobile nontender uterus mobile nontender adnexa nontender average tone w Kegel General: Yes bladder normal to palpation External Female Exam: normal external appearance and normal appearance of the urethra Speculum Exam - Vagina: normal appearance of the vagina, normal palpation and normal vaginal discharge Speculum Exam - Cervix: normal appearance of the cervix, normal palpation and nontender Bimanual exam- vagina & uterus: normal bimanual exam, normal palpation, uterine size normal, bladder normal to palpation, consistency normal, normal palpation, uterine mobility normal, uterine shape normal, No Cervical tenderness present, non-tender and no cervical motion tenderness Bimanual Exam- Adnexa, other: normal adnexae, no masses, normal and No adnexal tenderness Neuro General: patient oriented x3 Assessment & Plan Assessment & Plan (1) Cervical cancer screening: Comment: 04/26/2022 Pap is negative Code(s): Z12.4 - Encounter for screening for malignant neoplasm of cervix Category: Medical (2) Screen for sexually transmitted diseases: Code(s): Z11.3 - Encounter for screening for infections with a predominantly sexual mode of transmission Category: Medical (3) Surveillance for control, oral contraceptives: Code(s): Z30.41 - Encounter for surveillance of contraceptive pills Category: Medical (4) Well woman exam with routine gynecological exam: Code(s): Z01.419 - Encounter for gynecological examination (general) (routine) without abnormal findings Category: Medical Plan -----Discussed in this visit the following: healthy balanced diet, regular and consistent exercise, getting recommended health screens, doing the best she can for her particular health concerns, kegel exercises, pap smear screening and followup recommendations, mammography screening and SBE, normal changes in cycles in her life stage--- . Reviewed her OCPs she is absolutely certain she has not missed any pills she is very clear about that so discussed that if she ever did she would want to use condoms just in case and reviewed what ovulatory mucus looks like in this case perhaps it is just a result a recent intercourse. Prescription sent for refill of her control pills. Orders: Orders Hepatitis C Antibody Today Z11.3 - Encounter for screening for infections with a predominantly sexual mode of transmission, Z12.4 - Encounter for screening for malignant neoplasm of cervix Hepatitis B Surface Antigen Today Z11.3 - Encounter for screening for infections with a predominantly sexual mode of transmission, Z12.4 - Encounter for screening for malignant neoplasm of cervix HIV Ab/Ag Today Z11.3 - Encounter for screening for infections with a predominantly sexual mode of transmission, Z12.4 - Encounter for screening for malignant neoplasm of cervix Syphilis Screen Today Z11.3 - Encounter for screening for infections with a predominantly sexual mode of transmission, Z12.4 - Encounter for screening for malignant neoplasm of cervix CT NG by PCR Today N89.8 - Other specified noninflammatory disorders of vagina, Z20.2 - Contact with and (suspected) exposure to infections with a predominantly sexual mode of transmission Bacterial Vaginosis Panel Today N89.8 - Other specified noninflammatory disorders of vagina Medications: Refilled desogestrel-ethinyl estradiol 0.15-0.03 mg (Apri) 1 tab PO DAILY PRN 84 tabs 4RF control Coding Level of Care Code Est Pt Prev Care 18-39y(60011) Diagnoses Cervical cancer screening Z12.4 Screen for sexually transmitted diseases Z11.3 Surveillance for control, oral contraceptives Z30.41 Well woman exam with routine gynecological exam Z01.419
== END 2024-05-04 15:36 | disposition home or self-care (01) ==
PROVIDERS: PCP Internal Medicine; Visit Provider Advanced Practice Midwife
DX: Z01.419 Encounter for gynecological examination (general) (routine) without abnormal findings (principal); Z12.4 Encounter for screening for malignant neoplasm of cervix; Z11.3 Encounter for screening for infections with a predominantly sexual mode of transmission; Z30.41 Encounter for surveillance of contraceptive pills
CPT/HCPCS: 99395

== ENCOUNTER 2024-05-06 11:10 | Outpatient (REF) | payer OTHER, SELFPAY ==
[2024-05-06 12:59] LABS: HBsAGNum1 0.26 S/CO (0.00-0.99); HIV AB/AG Nonreactive (Nonreactive); HIV Num 1 0.05 S/CO (0.00-0.99); Hepatitis B Surface Antigen Negative (Negative); ~HepC Num1 0.08 S/CO (0.00-0.79); ~Hepatitis C Antibody Nonreactive (Nonreactive)
[2024-05-06 13:01] LABS: Syphilis Screen Nonreactive (Nonreactive)
== END 2024-05-06 11:11 | disposition home or self-care (01) ==
LOC: HO.LAB 11:10
PROVIDERS: PCP Internal Medicine; Visit Provider Advanced Practice Midwife
DX: Z11.3 Encounter for screening for infections with a predominantly sexual mode of transmission (principal); Z12.4 Encounter for screening for malignant neoplasm of cervix
CPT/HCPCS: 36415; 86780; 86803; 87340; 87389

== ENCOUNTER 2024-06-15 12:46 | Outpatient (AMB) | payer OTHER, SELFPAY ==
--- NOTE | 2024-06-15 13:02 | A.OFFVIS_ITS ---
Vital Signs 06/15/24 13:03 Height 5 ft 4 in Weight 190 lb 4.143 oz BMI 32.7 BP 102/80 Blood Pressure Location Rt femoral Position Left Lateral Pulse 80 Pulse Source Pulse Oximeter Intake Visit Reasons: f/u postsurgical hypothyroidism Intake Note: Patient present today for post surgical hypothyroidism follow up visit. Vibrator Equipment Tester Required: No Accompanied by: Friend Allergies No Known Allergies [No Known Allergies*] Allergy (Verified 06/15/24 13:10) Medication List - Last Reconciled 06/15/24 by Mark Mendes MD desogestrel-ethinyl estradiol 0.15-0.03 mg (Apri) 1 tab PO DAILY PRN levothyroxine 150 mcg PO DAILY 90 days metronidazole 500 mg PO BID 7 days HPI Comments Details: 23 YO F with no significant PMHx who is seen in F/U for Grave's Disease. She delivered a healthy baby girl in Dec 2021. A few months after (she is unsure of timeline) she began experiencing symptoms of hyperthyroidism with tremors, palpitations, weight loss of 50 lbs over 3 months, and also frequent bowel movements of 4x per day. She presented to her PCP and TSH was checked, which was completely supressed with an elevated FT4. She was subsequently referred to Endocrinology. Labs were repeated which confirmed Grave's disease with elevated FT4 and TT3, and a supressed TSH. TSI, TRAB and TPO antibodies were positive. She underwent a thyroid uptake and scan which revealed uptake of 61.59% at 2 hours and 86.19% at 24 hours. There was mention of some cold areas bilaterally, but US revealed no discrete nodules identified. Pattern was consistent with Grave's disease. She was started on Methimazole but then underwent a total thyroidectomy 05/08/2023. Surgical pathology was benign. Postoperatively she was started on levothyroxine 137 mcg PO daily. Labs revealed hypothyroidism, so her levothyroxine was increased to 150 mcg PO daily. She is not yet due to repeat labs until 4 weeks from now. She did see Dr. Lauren Hoover for her Grave's eye disease at [facility] earlier this week and is following with her regularly. She denies any blurred vision, double vision or retroorbital pain/pressure. She does report some swelling in the eyes. She has not yet called Dr. Hoover's office to follow up. Thyroid US: 07/20/2022 Right Thyroid Lobe: 7.0 x 2.0 x 2.6 cm, volume 19.1 mL. Parenchyma: The gland echotexture is heterogeneous. Thyroid vascularity is increased. Left Thyroid Lobe: 6.0 x 1.9 x 2.3 cm, volume 13.7 mL. Parenchyma: The gland echotexture is heterogeneous. Thyroid vascularity is increased. Isthmus: 0.3 cm in maximum AP dimension. NODULES: No focal thyroid nodule is seen. NODES: Abnormal appearing right level 2 lymph node which measures 1.2 cm in transverse dimension but does not demonstrate a normal fatty hilum. Thyroid Uptake and Scan: 07/25/2022 FINDINGS: The uptake is 61.59% at 2 hours and 86.19% at 24 hours (Normal radioiodine uptake at 24 hours is 10% to 30%). The radioiodine is abnormal, significantly higher. The thyroid gland is enlarged, shows heterogeneous subtle small subcentimeter cold nodules on both the radioiodine as well as technetium pertechnetate images, at mid to inferior pole of both lobes of the gland, without any definite sonographic correlate. NM/NM thyroid w uptake IMPRESSION: ? Abnormal study showing features consistent with Graves' disease. A few superimposed subtle subcentimeter cold nodules are present at mid to inferior part of both lobes of the gland, without any definite sonographic correlate. Labs: Laboratory Tests 06/04/23 06/04/23 13:52 13:52 Albumin 4.2 25-OH Vitamin D Total 34.6 TSH 8.86 H Free T4 0.95 Total T3 138 PTH Intact 73 Calcium (PTH Intact) 9.3 PFSH Medical History Vitamin D deficiency Graves' eye disease Graves disease Hyperthyroidism Scalp cyst Menorrhagia Hx gestational diabetes Cervical cancer screening Family history of diabetes mellitus (DM) History of spontaneous Elevated blood pressure reading Surgical History History of thyroidectomy History of H/O dilation and curettage Family History Mother Hypertension Father No problems noted. Brother No problems noted. Sister No problems noted. Daughter No problems noted. Maternal Grandmother Alcohol abuse Hypertension Thyroid disease Maternal Grandfather Hypertension Myocardial infarct Maternal Aunt Ovarian cancer Other No significant medical problems Social History Housing: Apartment Alcohol intake: never Patient Tobacco Use Status: Never used Tobacco e-Cigarette/Vaping Use: Never Used Second Hand Smoke Exposure: No Substance Use Type: Marijuana Current occupational status: unemployed Gender identity: Female Cognitive needs: No Hearing needs: No Vision needs: Yes Female Reproductive History Menstrual Age of Menarche: 12 Physical Exam Vital Signs: Last Vital Signs Pulse 80 06/15/24 13:03 BP 102/80 06/15/24 13:03 BMI result Body Mass Index 32.7 Const Other: Healed scar status post thyroidectomy. This is the absence of proptosis or exophthalmos Assessment & Plan Assessment & Plan (1) Postsurgical hypothyroidism: Code(s): E89.0 - Postprocedural hypothyroidism Category: Medical Plan: This 23-year-old female with a history of post-surgical hypothyroidism after total thyroidectomy for Graves disease. She is currently on levothyroxine 150 mcg with last TSH in December 2023 being normal Plan is to recheck TSH and free T4. Assuming above is normal, patient returned to the care of her primary care provider returned back to endocrinology as needed Orders: Orders Thyroid Stimulating Hormone Today E89.0 - Postprocedural hypothyroidism Free T4 (Free Thyroxine) Today E89.0 - Postprocedural hypothyroidism Coding Level of Care Code Est Pt Level 3 (64494) Diagnoses Postsurgical hypothyroidism E89.0
[2024-06-15 13:03] VITALS: BP 102/80; PULSE 80; BMI 32.7
== END 2024-06-15 14:14 | disposition home or self-care (01) ==
PROVIDERS: PCP Internal Medicine; Visit Provider Internal Medicine Endocrinology, Diabetes & Metabolism
DX: E89.0 Postprocedural hypothyroidism (principal)
CPT/HCPCS: 99213

== ENCOUNTER → 2024-06-15 12:46 | Outpatient (BNVA) | payer OTHER, SELFPAY | PROVIDERS: PCP Internal Medicine; Visit Provider Internal Medicine Endocrinology, Diabetes & Metabolism | DX: E89.0 Postprocedural hypothyroidism (principal) | CPT/HCPCS: 99212 ==

== ENCOUNTER 2024-06-17 14:26 | Outpatient (REF) | payer OTHER, SELFPAY ==
[2024-06-17 16:02] LABS: Free T4 (Free Thyroxine) 1.13 ng/dL (0.71-1.85); Thyroid Stimulating Hormone 9.14 uIU/mL (0.32-4.0)
== END 2024-06-17 14:27 | disposition home or self-care (01) ==
LOC: HO.LAB 14:26
PROVIDERS: PCP Internal Medicine; Visit Provider Internal Medicine Endocrinology, Diabetes & Metabolism
DX: E89.0 Postprocedural hypothyroidism (principal); N89.8 Other specified noninflammatory disorders of vagina; Z30.41 Encounter for surveillance of contraceptive pills; Z12.4 Encounter for screening for malignant neoplasm of cervix; Z11.3 Encounter for screening for infections with a predominantly sexual mode of transmission
CPT/HCPCS: 36415; 84439; 84443; 99212

== ENCOUNTER 2024-06-17 15:03 | Outpatient (AMB) | payer OTHER, SELFPAY ==
[2024-06-17 15:25] VITALS: BP 126/70; BMI 32.8
--- NOTE | 2024-06-17 15:25 | MHC.OFFVIS ---
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 Required: No Information Interpreted: clinical only Pile Driver Operator: Pile Driver Operator Present Allergies No Known Allergies [No Known Allergies*] Allergy (Verified 06/17/24 15:25) Medication List - Last Reconciled 06/17/24 by Cassie North CNM desogestrel-ethinyl estradiol 0.15-0.03 mg (Apri) 1 tab PO DAILY PRN levothyroxine 150 mcg PO DAILY 90 days Is last menstrual period known: Yes Last menstrual period: 06/01/24 Do you need a note to return to daycare/school/sports/work: No HPI HPI STD check: Details: Patient is here for an STD check she found out her boyfriend was cheating on her she is having leave the apartment she is just waiting for him to be gone from the apartment she still has a roommate with whom she will share rent. She had sex Saturday night and she did not have the pills at the time so she went to [facility] Saturday morning and got Plan B and took it. She was on control pills but she was traveling and lost her 3 month pack so the last pill she took was June 04 which was the last placebo pill her period came on the . She has spoken with [facility] and had to sign something that she lost her prescription and they are in communication with her insurance as to whether not they will give her another pack of control pills for 3 month supply or not. She is not planning to be sexually active within 1 based of all her boyfriend with she has letting up. I did discuss use of plan B should some unforeseen event occur however in terms of the control pills she might be better off at this stage waiting till her next period comes in order to start the new pill pack I would recommend starting at the beginning of the menses. If she decides that she is at some what ever risk for an unintended beforehand and wants to start them had of time she may however she should be aware that her bleeding pattern may be completely irregular and unpredictable and so she should be ready for that. Reviewed that she took plan B in a timely fashion after this recent episode of unprotected sex. She is interested blood work for STIs as well. She does have support. [facility] Medical History Vitamin D deficiency Graves' eye disease Graves disease Hyperthyroidism Scalp cyst Menorrhagia Hx gestational diabetes Cervical cancer screening Family history of diabetes mellitus (DM) History of spontaneous Elevated blood pressure reading Surgical History History of thyroidectomy History of H/O dilation and curettage Family History Mother Hypertension Father No problems noted. Brother No problems noted. Sister No problems noted. Daughter No problems noted. Maternal Grandmother Alcohol abuse Hypertension Thyroid disease Maternal Grandfather Hypertension Myocardial infarct Maternal Aunt Ovarian cancer Other No significant medical problems Social History Housing: Apartment Alcohol intake: never Patient Tobacco Use Status: Never used Tobacco e-Cigarette/Vaping Use: Never Used Second Hand Smoke Exposure: No Substance Use Type: Marijuana Current occupational status: unemployed Gender identity: Female Cognitive needs: No Hearing needs: No Vision needs: Yes Female Reproductive History Menstrual Age of Menarche: 12 Duration of menses: 3-5 days Date of last menstrual period: 06/01/24 control method: pills Total pregnancies: 1 Full term: 1 Date of last pap smear: 04/27/22 (neg.) History of abnormal pap smear: No Physical Exam Vital Signs: Last Vital Signs BP 126/70 06/17/24 15:25 BMI result Body Mass Index 32.8 External Female Exam: normal external appearance and normal appearance of the urethra Speculum Exam - Vagina: normal appearance of the vagina and normal vaginal discharge Speculum Exam - Cervix: normal appearance of the cervix and Cervical os closed Assessment & Plan Assessment & Plan (1) Surveillance for control, oral contraceptives: Code(s): Z30.41 - Encounter for surveillance of contraceptive pills Category: Medical (2) Screen for sexually transmitted diseases: Code(s): Z11.3 - Encounter for screening for infections with a predominantly sexual mode of transmission Category: Medical (3) Cervical cancer screening: Comment: 04/26/2022 Pap is negative Code(s): Z12.4 - Encounter for screening for malignant neoplasm of cervix Category: Medical Plan Reviewed her concern for STDs she does note a little bit of a discharge it appeared within normal range but we will await the results I also placed orders for blood work for her. I sent a prescription for Plan B to her pharmacy so she has it available. She is hoping to get the control pills if she chooses to start them soon she may however she should be ready for random breakthrough bleeding since she is not starting them early or with her menses and there is been at least a 9 day gap or more now between finishing her last pack and when she would start if she started today. Reviewed support around break ups in the emotional toll that takes. Patient is aware of safer sex. The better thing to do when she gets the control pills if she is not planning to be sexually active within the next month is to wait for her next period. But it is her choice Orders: Orders HIV Ab/Ag Today Z11.3 - Encounter for screening for infections with a predominantly sexual mode of transmission, Z12.4 - Encounter for screening for malignant neoplasm of cervix, Z30.41 - Encounter for surveillance of contraceptive pills CT NG by PCR Today N89.8 - Other specified noninflammatory disorders of vagina, Z20.2 - Contact with and (suspected) exposure to infections with a predominantly sexual mode of transmission Hepatitis B Surface Antigen Today Z11.3 - Encounter for screening for infections with a predominantly sexual mode of transmission, Z12.4 - Encounter for screening for malignant neoplasm of cervix, Z30.41 - Encounter for surveillance of contraceptive pills Hepatitis C Antibody Today Z11.3 - Encounter for screening for infections with a predominantly sexual mode of transmission, Z12.4 - Encounter for screening for malignant neoplasm of cervix, Z30.41 - Encounter for surveillance of contraceptive pills Syphilis Screen Today Z11.3 - Encounter for screening for infections with a predominantly sexual mode of transmission, Z12.4 - Encounter for screening for malignant neoplasm of cervix, Z30.41 - Encounter for surveillance of contraceptive pills Bacterial Vaginosis Panel Today N89.8 - Other specified noninflammatory disorders of vagina Medications: New levonorgestrel (Plan B One-Step) 1.5 mg PO ONCE 1 tab 4RF Coding Level of Care Code Est Pt Level 3 (62730) Diagnoses Surveillance for control, oral contraceptives Z30.41 Screen for sexually transmitted diseases Z11.3 Cervical cancer screening Z12.4
== END 2024-06-17 15:56 | disposition home or self-care (01) ==
LOC: HO.HWSM 15:03
PROVIDERS: PCP Internal Medicine; Visit Provider Advanced Practice Midwife
DX: Z30.41 Encounter for surveillance of contraceptive pills (principal)
CPT/HCPCS: 99213

== ENCOUNTER 2024-06-17 16:27 | Outpatient (REF) | payer OTHER, SELFPAY ==
[2024-06-19 02:42] LABS: CT PCR NOT DETECTED (Not Detect.); NG PCR NOT DETECTED (Not Detect.)
[2024-06-19 11:49] LABS: Bacterial Vaginosis PCR POSITIVE (Negative); Candida Group PCR NOT DETECTED (Not Detect); Candida glab krusei PCR NOT DETECTED (Not Detect); Trichomonas vaginalis PCR NOT DETECTED (Not Detect)
== END 2024-06-17 16:28 | disposition home or self-care (01) ==
LOC: HO.LNP 16:27
PROVIDERS: Visit Provider Advanced Practice Midwife
DX: N89.8 Other specified noninflammatory disorders of vagina (principal); E89.0 Postprocedural hypothyroidism; Z20.2 Contact with and (suspected) exposure to infections with a predominantly sexual mode of transmission
CPT/HCPCS: 0352U; 87491; 87591

== ENCOUNTER 2024-06-18 14:26 | Outpatient (REF) | payer OTHER, SELFPAY ==
[2024-06-19 08:40] LABS: HBsAGNum1 0.24 S/CO (0.00-0.99); HIV AB/AG Nonreactive (Nonreactive); HIV Num 1 0.08 S/CO (0.00-0.99); Hepatitis B Surface Antigen Negative (Negative); ~HepC Num1 0.18 S/CO (0.00-0.79); ~Hepatitis C Antibody Nonreactive (Nonreactive)
[2024-06-19 08:59] LABS: Syphilis Screen Nonreactive (Nonreactive)
== END 2024-06-18 14:27 | disposition home or self-care (01) ==
LOC: HO.HHCL 14:26
PROVIDERS: Visit Provider Advanced Practice Midwife
DX: N89.8 Other specified noninflammatory disorders of vagina (principal); Z20.2 Contact with and (suspected) exposure to infections with a predominantly sexual mode of transmission; Z12.4 Encounter for screening for malignant neoplasm of cervix; Z30.41 Encounter for surveillance of contraceptive pills
CPT/HCPCS: 36415; 86780; 86803; 87340; 87389

== ENCOUNTER 2024-08-03 10:28 | Outpatient (REF) | payer OTHER, SELFPAY ==
[2024-08-03 14:24] LABS: Influenza A PCR NEGATIVE (Negative); Influenza B PCR NEGATIVE (Negative); Resp Syncy Virus RNA Qual PCR NEGATIVE (Negative); SARS COV2 PCR INHOUSE NEGATIVE (Negative)
== END 2024-08-03 10:29 | disposition home or self-care (01) ==
LOC: HO.LAB 10:28
PROVIDERS: PCP Internal Medicine; Visit Provider Registered Nurse
DX: J06.9 Acute upper respiratory infection, unspecified (principal)
CPT/HCPCS: 0241U; 87880; 99212

== ENCOUNTER 2024-08-03 10:28 | Outpatient (AMB) | payer OTHER, SELFPAY ==
--- NOTE | 2024-08-03 10:46 | MHC.OFFWIV ---
Intake Vital Signs 08/03/24 10:48 Height 5 ft 4 in Weight 191 lb BMI 32.8 BP 120/84 Blood Pressure Location Lt brachial Position Sitting Pulse 80 Pulse Source Pulse Oximeter Pulse Oximetry (%) 99 Oxygen Delivery Method Room Air Intake Visit Reasons: EP Throat itching, congestion Intake Note: Patient here for congestion, runny nose, sinus pressure and throat feels like its on fire. Patient Tobacco Use Status: Never used Tobacco Allergies No Known Allergies [No Known Allergies*] Allergy (Verified 08/03/24 10:49) Medication List - Last Reconciled 08/03/24 by Lexi Mead NP desogestrel-ethinyl estradiol 0.15-0.03 mg (Apri) 1 tab PO DAILY PRN levonorgestrel (Plan B One-Step) 1.5 mg PO ONCE levothyroxine 175 mcg PO DAILY Do you need a note to return to daycare/school/sports/work: Yes HPI EP Throat itching, congestion HPI Details This note is constructed using voice recognition software. While every effort has been made to ensure accuracy, diplomatic interpreter/translator errors may have been included. The patient is a 24 year old female who presents to the clinic today with throat itching, congestion, and fatigue, body aches, mild cough since Saturday. She notes that her child has also been sick with similar symptoms. She denies dyspnea. She has not checked her temperature. [facility] Medical History Vitamin D deficiency Graves' eye disease Graves disease Hyperthyroidism Scalp cyst Menorrhagia Hx gestational diabetes Cervical cancer screening Family history of diabetes mellitus (DM) History of spontaneous Elevated blood pressure reading Surgical History History of thyroidectomy History of H/O dilation and curettage Family History Mother Hypertension Father No problems noted. Brother No problems noted. Sister No problems noted. Daughter No problems noted. Maternal Grandmother Alcohol abuse Hypertension Thyroid disease Maternal Grandfather Hypertension Myocardial infarct Maternal Aunt Ovarian cancer Other No significant medical problems Social History Housing: Apartment Alcohol intake: never Patient Tobacco Use Status: Never used Tobacco e-Cigarette/Vaping Use: Never Used Second Hand Smoke Exposure: No Substance Use Type: Marijuana Current occupational status: unemployed Gender identity: Female Cognitive needs: No Hearing needs: No Vision needs: Yes Female Reproductive History Menstrual Age of Menarche: 12 Review of Systems Const All systems reviewed & are unremarkable except as noted in HPI and below Physical Exam Vital Signs: Last Vital Signs Pulse 80 08/03/24 10:48 BP 120/84 08/03/24 10:48 Pulse Ox 99 08/03/24 10:48 Oxygen Delivery Method Room Air 08/03/24 10:48 BMI result Body Mass Index 32.8 Const General: cooperative, healthy appearing, comfortable and no acute distress Orientation/consciousness: patient oriented x3 Limitations: no limitations HEENT Head: Yes normal to inspection Ears: hearing grossly normal bilaterally, external ears normal and TM's normal bilaterally General nose exam: Normal external nose present, Normal nares present and No nasal discharge present Face and sinus: Yes normal facial exam and Yes sinuses nontender Mouth: Normal oral and palatal mucosa present and moist mucous membranes Throat: Yes tonsils normal, Yes uvula midline and Yes posterior oropharynx abnormal (Erythema) Eyes General: appearance normal, both eyes and all related structures Neck Neck: Yes normal visual inspection Resp Effort & Inspection: normal respiratory effort, able to speak in complete sentences, Actively coughing, no respiratory distress, not tachypneic, no tripod positioning and no use of accessory muscles Auscultation: clear to auscultation bilaterally Cardio Jugular venous distension: no JVD Rate: regular rate Rhythm: regular rhythm Heart sounds: S1 normal heart sound present, S2 normal heart sound present, no click, no gallops, no murmurs and no rubs Skin General skin exam: no rashes or lesions noted, elasticity normal and turgor normal Neuro General: patient oriented x3 Extrem General: Yes normal to inspection and Yes no clubbing, cyanosis or edema Results AMB Rapid Strep AMB Rapid Strep Negative Last Edit by OSBALDO Mendiola on 08/03/24 11:12 Assessment & Plan Assessment & Plan (1) URI (upper respiratory infection): Code(s): J06.9 - Acute upper respiratory infection, unspecified Qualifiers: URI type: unspecified URI Qualified Code(s): J06.9 - Acute upper respiratory infection, unspecified Plan: Viral swab obtained to rule out Covid based on symptoms. Advised mask wearing while symptomatic and quarantine per current CDC guidelines. Reviewed at home support methods including hydration, humidification, vix vapor rub, sinus rinse. Discussed treatment with antiviral therapy for covid with paxlovid including appropriate use and side effects, and need to start medication within 5 day of symptom onset, preferably within 48 hours of symptom onset. Patient wishes to decline paxlovid. Advised follow up with worsening symptoms such as dyspnea at rest, which would require emergent evaluation. Plan See above for full details and plan. Orders: Orders AMB Rapid Strep Screen Today Z13.9 - Encounter for screening, unspecified Medications: Discontinued metronidazole Discontinued Reason: Order 500 mg PO BID 7 days 14 tabs 0RF Coding Level of Care Code Est Pt Level 3 (66388) Diagnoses Upper respiratory tract infection, unspecified type J06.9 URI type: unspecified URI
[2024-08-03 10:48] VITALS: BP 120/84; PULSE 80; O2SAT 99; BMI 32.8
== END 2024-08-03 11:26 | disposition home or self-care (01) ==
PROVIDERS: PCP Internal Medicine; Visit Provider Registered Nurse
DX: J06.9 Acute upper respiratory infection, unspecified (principal); Z13.9 Encounter for screening, unspecified

== ENCOUNTER 2024-08-17 15:23 | Outpatient (REF) | payer OTHER, SELFPAY ==
[2024-08-17 17:43] LABS: Thyroid Stimulating Hormone 0.34 uIU/mL (0.32-4.0)
== END 2024-08-17 15:24 | disposition home or self-care (01) ==
LOC: HO.LAB 15:23
PROVIDERS: PCP Internal Medicine; Visit Provider Internal Medicine Endocrinology, Diabetes & Metabolism
DX: E89.0 Postprocedural hypothyroidism (principal)
CPT/HCPCS: 36415; 84439; 84443

== ENCOUNTER 2024-09-14 07:48 | Outpatient (AMB) | payer OTHER, SELFPAY ==
--- NOTE | 2024-09-14 07:54 | MHC.OFFVIS ---
Vital Signs 09/14/24 07:55 Height 5 ft 4 in Weight 198 lb 6.656 oz BMI 34.1 BP 114/74 Blood Pressure Location Lt brachial Position Sitting Pulse 84 Pulse Source Palpation Intake Visit Reasons: f/u postsurgical hypothyroidism-conf Intake Note: Patient present today for post surgical hypothyroidism follow up visit. 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 She delivered a healthy baby girl in Dec 2021. A few months after (she is unsure of timeline) she began experiencing symptoms of hyperthyroidism with tremors, palpitations, weight loss of 50 lbs over 3 months, and also frequent bowel movements of 4x per day. She presented to her PCP and TSH was checked, which was completely supressed with an elevated FT4. She was subsequently referred to Endocrinology. Labs were repeated which confirmed Grave's disease with elevated FT4 and TT3, and a supressed TSH. TSI, TRAB and TPO antibodies were positive. She underwent a thyroid uptake and scan which revealed uptake of 61.59% at 2 hours and 86.19% at 24 hours. There was mention of some cold areas bilaterally, but US revealed no discrete nodules identified. Pattern was consistent with Grave's disease. She was started on Methimazole but then underwent a total thyroidectomy 05/08/2023. Surgical pathology was benign. Postoperatively she was started on levothyroxine 137 mcg PO daily. Labs revealed hypothyroidism, so her levothyroxine was increased to 150 mcg PO daily. She is not yet due to repeat labs until 4 weeks from now. She did see Dr. Lauren Hoover for her Grave's eye disease at [facility] earlier this week and is following with her regularly. She denies any blurred vision, double vision or retroorbital pain/pressure. She does report some swelling in the eyes. She has not yet called Dr. Hoover's office to follow up. Thyroid US: 07/20/2022 Right Thyroid Lobe: 7.0 x 2.0 x 2.6 cm, volume 19.1 mL. Parenchyma: The gland echotexture is heterogeneous. Thyroid vascularity is increased. Left Thyroid Lobe: 6.0 x 1.9 x 2.3 cm, volume 13.7 mL. Parenchyma: The gland echotexture is heterogeneous. Thyroid vascularity is increased. Isthmus: 0.3 cm in maximum AP dimension. NODULES: No focal thyroid nodule is seen. NODES: Abnormal appearing right level 2 lymph node which measures 1.2 cm in transverse dimension but does not demonstrate a normal fatty hilum. Thyroid Uptake and Scan: 07/25/2022 FINDINGS: The uptake is 61.59% at 2 hours and 86.19% at 24 hours (Normal radioiodine uptake at 24 hours is 10% to 30%). The radioiodine is abnormal, significantly higher. The thyroid gland is enlarged, shows heterogeneous subtle small subcentimeter cold nodules on both the radioiodine as well as technetium pertechnetate images, at mid to inferior pole of both lobes of the gland, without any definite sonographic correlate. NM/NM thyroid w uptake IMPRESSION: ? Abnormal study showing features consistent with Graves' disease. A few superimposed subtle subcentimeter cold nodules are present at mid to inferior part of both lobes of the gland, without any definite sonographic correlate. Labs: Laboratory Tests 06/04/23 06/04/23 13:52 13:52 Albumin 4.2 25-OH Vitamin D Total 34.6 TSH 8.86 H Free T4 0.95 Total T3 138 PTH Intact 73 Calcium (PTH Intact) 9.3 Currently on levothyroxine 175 mcg q.d. no hypothyroid or hyperthyroid symptoms except for weight gain [facility] Medical History Vitamin D deficiency Graves' eye disease Graves disease Hyperthyroidism Scalp cyst Menorrhagia Hx gestational diabetes Cervical cancer screening Family history of diabetes mellitus (DM) History of spontaneous Elevated blood pressure reading Surgical History History of thyroidectomy History of H/O dilation and curettage Family History Mother Hypertension Father No problems noted. Brother No problems noted. Sister No problems noted. Daughter No problems noted. Maternal Grandmother Alcohol abuse Hypertension Thyroid disease Maternal Grandfather Hypertension Myocardial infarct Maternal Aunt Ovarian cancer Other No significant medical problems Social History Housing: Apartment Alcohol intake: never Patient Tobacco Use Status: Never used Tobacco e-Cigarette/Vaping Use: Never Used Second Hand Smoke Exposure: No Substance Use Type: Marijuana Current occupational status: unemployed Gender identity: Female Cognitive needs: No Hearing needs: No Vision needs: Yes Female Reproductive History Menstrual Age of Menarche: 12 Physical Exam Vital Signs: Last Vital Signs Pulse 84 09/14/24 07:55 BP 114/74 09/14/24 07:55 BMI result Body Mass Index 34.1 Const Other: Healed scar status post thyroidectomy. This is the absence of proptosis or exophthalmos Assessment & Plan Assessment & Plan (1) Postsurgical hypothyroidism: Code(s): E89.0 - Postprocedural hypothyroidism Category: Medical Plan: This 23-year-old female with a history of post-surgical hypothyroidism after total thyroidectomy for Graves disease. She is currently on levothyroxine 175 mcg . She appears to be clinically and biochemically euthyroid Plan is to continue the current therapy. At this point, a patient returned to the care of her primary care provider returned back to endocrinology as needed. I do not think a weight gain is related to the thyroid I told her to speak to her primary care provider about this Coding Level of Care Code Est Pt Level 3 (39068) Diagnoses Postsurgical hypothyroidism E89.0
[2024-09-14 07:55] VITALS: BP 114/74; PULSE 84; BMI 34.1
== END 2024-09-14 08:05 | disposition home or self-care (01) ==
LOC: HO.ENCR 07:49
PROVIDERS: PCP Internal Medicine; Visit Provider Internal Medicine Endocrinology, Diabetes & Metabolism
DX: E89.0 Postprocedural hypothyroidism (principal)
CPT/HCPCS: 99213

== ENCOUNTER → 2024-09-14 07:48 | Outpatient (BNVA) | payer OTHER, SELFPAY | PROVIDERS: PCP Internal Medicine; Visit Provider Internal Medicine Endocrinology, Diabetes & Metabolism | DX: E89.0 Postprocedural hypothyroidism (principal); E05.00 Thyrotoxicosis with diffuse goiter without thyrotoxic crisis or storm | CPT/HCPCS: 99212 ==

== ENCOUNTER 2024-09-16 13:54 | Outpatient (AMB) | payer OTHER, SELFPAY ==
[2024-09-16 15:08] VITALS: BP 140/84; PULSE 68; O2SAT 98
--- NOTE | 2024-09-16 15:08 | MHC.OFFWIV ---
Intake Vital Signs 09/16/24 15:08 Weight 196 lb 8 oz BP 140/84 H Blood Pressure Location Lt brachial Position Sitting Pulse 68 Pulse Source Pulse Oximeter Pulse Oximetry (%) 98 Oxygen Delivery Method Room Air Intake Visit Reasons: EP cold sores in the mouth Patient Tobacco Use Status: Never used Tobacco Allergies No Known Allergies [No Known Allergies*] Allergy (Verified 09/16/24 15:09) HPI HPI Comments History of Present Illness Details Patient is a 24-year-old female complaining of painful cold sores on her lips. She tells me that she never had them before and all the sudden 2 weeks ago she noticed some on her lip so she went to an urgent care where they gave her medication to take, she tells me it was 2 pills in the morning and then 2 pills later on in the day. She tells me that her cold sore seemed to get better and the burning and pain seemed to improve however, she states another 1 came out on her upper lip and the corner of her mouth. She is concerned because she does not want to give these to her daughter or anyone else. [facility] Medical History Vitamin D deficiency Graves' eye disease Graves disease Hyperthyroidism Scalp cyst Menorrhagia Hx gestational diabetes Cervical cancer screening Family history of diabetes mellitus (DM) History of spontaneous Elevated blood pressure reading Surgical History History of thyroidectomy History of H/O dilation and curettage Family History Mother Hypertension Father No problems noted. Brother No problems noted. Sister No problems noted. Daughter No problems noted. Maternal Grandmother Alcohol abuse Hypertension Thyroid disease Maternal Grandfather Hypertension Myocardial infarct Maternal Aunt Ovarian cancer Other No significant medical problems Social History Housing: Apartment Alcohol intake: never Patient Tobacco Use Status: Never used Tobacco e-Cigarette/Vaping Use: Never Used Second Hand Smoke Exposure: No Substance Use Type: Marijuana Current occupational status: unemployed Gender identity: Female Cognitive needs: No Hearing needs: No Vision needs: Yes Female Reproductive History Menstrual Age of Menarche: 12 Review of Systems Const All systems reviewed & are unremarkable except as noted in HPI and below Physical Exam Vital Signs: Last Vital Signs Pulse 68 09/16/24 15:08 BP 140/84 H 09/16/24 15:08 Pulse Ox 98 09/16/24 15:08 Oxygen Delivery Method Room Air 09/16/24 15:08 Const General: cooperative, healthy appearing, comfortable, no acute distress and well developed Orientation/consciousness: patient oriented x3 Limitations: no limitations HEENT Head: Yes normal to inspection Ears: hearing grossly normal bilaterally General nose exam: Normal external nose present Mouth: Normal oral and palatal mucosa present, tongue normal and lip abnormal (Fluid-filled vesicle on the left corner of the mouth) Neck Neck: Yes normal visual inspection and Yes supple Neuro General: patient oriented x3 Assessment & Plan Assessment & Plan (1) HSV-1 (herpes simplex virus 1) infection: Code(s): B00.9 - Herpesviral infection, unspecified Plan: Educated patient on the difference between HSV 1 and HSV 2, gave her precautions on how not to transfer HSV 1 to anyone while she has an active cold sore. Sent acyclovir to pharmacy. Plan See above Medications: New acyclovir 400 mg PO TID 15 tabs 0RF Coding Level of Care Code Est Pt Level 3 (38766) Diagnoses HSV-1 (herpes simplex virus 1) infection B00.9
== END 2024-09-16 16:44 | disposition home or self-care (01) ==
PROVIDERS: PCP Internal Medicine; Visit Provider Physician Assistant
DX: B00.9 Herpesviral infection, unspecified (principal)

== ENCOUNTER → 2024-09-16 13:54 | Outpatient (BNVA) | payer OTHER, SELFPAY | PROVIDERS: PCP Internal Medicine | DX: B00.9 Herpesviral infection, unspecified (principal) | CPT/HCPCS: 99212 ==

== ENCOUNTER 2024-09-23 13:19 | Outpatient (AMB) | payer OTHER, SELFPAY ==
--- NOTE | 2024-09-23 13:28 | A.OFFPC_ITS ---
Vital Signs 09/23/24 13:29 Height 5 ft 4 in Weight 196 lb BMI 33.6 BP 118/70 Blood Pressure Location Lt brachial Position Sitting Pulse 75 Pulse Source Pulse Oximeter Pulse Oximetry (%) 98 Oxygen Delivery Method Room Air Intake Visit Reasons: PE Allergies No Known Allergies [No Known Allergies*] Allergy (Verified 09/23/24 13:29) Medication List - Last Reconciled 09/23/24 by Dwayne Mckinley MD desogestrel-ethinyl estradiol 0.15-0.03 mg (Apri) 1 tab PO DAILY PRN levothyroxine 175 mcg PO DAILY Tobacco use date assessed: 09/23/24 Dental Screening Dental Screen Date: 09/23/24 Did you have a dental visit in the last 12 months?: Yes Did you have a dental problem in the last 6 months where you did not have access to dental care?: No Was dental information given to patient?: Patient has dentist HPI PE HPI Details 24 year old obese female with postsurgic al hypothyroidism coming in for physical exam last seen in 08/13/2023. Patient is here for physical exam. Urgent visit September 16 for a cold sore treated with acyclovir September 14 patient was seen by Endocrinology status post thyroidectomy for Graves disease continuing with levothyroxine. PAteint states eating a lot. [facility] Medical History Vitamin D deficiency Graves' eye disease Graves disease Hyperthyroidism Scalp cyst Menorrhagia Hx gestational diabetes Cervical cancer screening Family history of diabetes mellitus (DM) History of spontaneous Elevated blood pressure reading Surgical History History of thyroidectomy History of H/O dilation and curettage Family History Mother Hypertension Father No problems noted. Brother No problems noted. Sister No problems noted. Daughter No problems noted. Maternal Grandmother Alcohol abuse Hypertension Thyroid disease Maternal Grandfather Hypertension Myocardial infarct Maternal Aunt Ovarian cancer Other No significant medical problems Social History (Updated 09/23/24 @ 13:40 by Dwayne Mckinley MD) Housing: Apartment Alcohol intake: never Patient Tobacco Use Status: Never used Tobacco Tobacco use type: Cigarette Years Smoked: weed e-Cigarette/Vaping Use: Never Used Second Hand Smoke Exposure: No Substance Use Type: Marijuana Current occupational status: unemployed Gender identity: Female Cognitive needs: No Hearing needs: No Vision needs: Yes Female Reproductive History Menstrual Age of Menarche: 12 Questionnaire PHQ-9 Over the last 2 weeks, how often have you been bothered by any of the following problems? 1. Little interest or pleasure in doing things: not at all 2. Feeling down, depressed, or hopeless: not at all 3. Trouble falling or staying asleep, or sleeping too much: not at all 4. Feeling tired or having little energy: not at all 5. Poor appetite or overeating: several days 6. Feeling bad about yourself - or that you are a failure or have let yourself or your family down: not at all 7. Trouble concentrating on things, such as reading the newspaper or watching television: not at all 8. Moving or speaking so slowly that other people could have noticed. Or the opposite - being so fidgety or restless that you have been moving around a lot more than usual: not at all 9. Thoughts that you would be better off or of hurting yourself in some way: not at all Total score: 1 Source: Developed by Drs. Mark Barton, Anika Randle, Refugio Arambula and colleagues, with an educational pushpa from [employer]. Thrive Questionnaire Date Thrive assessed: 09/23/24 I am a: Patient What is your living situation today?: I have a steady place to live Within the past 12 months, did the food you bought not last and you didn't have the money to get more?: Sometimes True Within the past 12 months, did you worry whether your food would run out before you got money to buy more?: Never true Do you have trouble paying for medicines?: No Do you have trouble getting transportation to medical appointments?: No Do you have trouble paying your heating and electricity bill?: No Do you have trouble taking care of your child, family member or friend?: No Do you have trouble with day-to-day activities such as bathing, preparing meals, shopping, managing finances, etc.?: No Are you currently unemployed and looking for a job?: No Are you interested in more education?: Yes Please select the resources that you would like help with: None Currently or been in a relationship where the following occur: No concerns reported THRIVE Score: 1 AUDIT C Alcohol Use Questionnaire (AUDIT-C) 1. How often do you have a drink containing alcohol?: Monthly or less 2. How many drinks containing alcohol do you have on a typical day when you are drinking?: 1 or 2 3. How often do you have six or more drinks on one occasion?: Never Total Score: 1 HARSHAL-7 AMB Questionnaire HARSHAL-7 Date HARSHAL - 7 assessed: 09/23/24 Feeling nervous, anxious, or on edge: 0 = Not at all Not being able to stop or control worryin = Not at all Worrying too much about different things: 0 = Not at all Trouble relaxin = Not at all Being so restless that it is hard to sit still: 0 = Not at all Becoming easily annoyed or irritable: 0 = Not at all Feeling afraid as if something awful might happen: 0 = Not at all Total HARSHAL-7 score (0-4 normal; 5-9 mild; 10-14 moderate; 15-21 severe): 0 Source: Developed by Drs. Mark Barton, Anika Randle, Refugio Arambula and colleagues, with an educational pushpa from [employer]. Review of Systems Const Denies poor appetite and Denies weakness Eyes Denies no additional complaints ENT Reports Normal hearing present, Denies dizziness, Denies nasal congestion, Denies tinnitus and Denies sore throat Card Denies chest pain, Denies syncope, Denies rapid heart rate and Denies dyspnea Resp Denies cough and Denies dyspnea GI Denies change in stool character, Reports constipation, Denies diarrhea, Denies nausea and Denies vomiting Denies urinary frequency, Denies difficulty voiding and Denies dysuria Neuro Reports Normal hearing present, Denies confusion, Denies dizziness, Denies syncope and Denies weakness Psych Denies confusion Physical exam (Primary Care) Vital Signs: Last Vital Signs Pulse 75 09/23/24 13:29 BP 118/70 09/23/24 13:29 Pulse Ox 98 09/23/24 13:29 Oxygen Delivery Method Room Air 09/23/24 13:29 BMI result Body Mass Index 33.6 Tobacco/Smoking Status: Tobacco use Status Tobacco use date assessed 09/23/24 09/23/24 13:32 Patient Tobacco Use Status Never used Tobacco 09/23/24 13:32 Tobacco use type Cigarette 09/23/24 13:32 e-Cigarette/Vaping Use Never Used 09/23/24 13:32 PHQ-9: PHQ-9 Score PHQ-9: Total score 1 09/23/24 13:34 Thrive Assessment: Date of Thrive Assessment Date Thrive assessed 09/23/24 09/23/24 13:32 Currently or been in a relationship where the following occur: No concerns reported Const General: No confusion Orientation/consciousness: No confusion HENMT Head: Yes normocephalic Ears: external ears normal and TM's normal bilaterally Face and sinus: Yes normal facial exam Mouth: moist mucous membranes Throat: Yes tonsils normal Eyes Conjunctivae: conjunctivae normal Pupils: Equal, round and reactive pupils present and Pupil accommodation reflex normal Direct Ophthalmoscopy: normal light reflex Neck Neck: No lymphadenopathy Thyroid: Thyroid normal Chest Chest palpation & inspection: normal inspection of the chest Resp Effort & Inspection: normal respiratory effort and no audible wheezes Auscultation: clear to auscultation bilaterally, no crackles, no wheezes and lung sounds not diminished Cardio Rate: regular rate Rhythm: regular rhythm Peripheral pulses: radial pulses present and dorsalis pedis present GI Palpation (GI): no masses Auscultation: normal bowel sounds and normoactive bowel sounds Rectal Exam - Female: deferred Skin General skin exam: no rashes or lesions noted Rashes: no rashes Neuro General: No confusion Cranial nerves: Yes Equal, round and reactive pupils present and Yes Normal hearing present Cognition (Neuro): normal cognition Gait exam (Neuro): Normal gait present Motor exam (neuro): 5/5 motor strength present throughout Deep tendon reflexes (DTR's): Right brachioradialis reflex intensity grade: 2+, Left brachioradialis reflex intensity grade: 2+, Right patellar reflex intensity grade: 2+ and Left patellar reflex intensity grade: 2+ Extrem General: No edema Office Procedures Flu Questionnaire Does the patient have a severe egg allergy?: No Does the patient have severe life threatening allergies?: No Does the patient have a fever or illness today?: No Has the patient ever had Guillain-[place] Syndrome?: No Has the patient ever had any past reaction to a flu shot?: No Immunizations Fluarix Triv 2218-0116 (PF) 45 mcg (15 mcg x 3)/0.5 mL IM syringe Performing Provider: Dwayne Mckinley MD [facility] Administered by: Dhara Smith CMA on 09/23/24 13:34 Dose Route Admin Location Dispensed Lot Number Expiration Date NDC Spinning Frame Cleaner 0.5 mL IM Left Deltoid 0.5 mL [id number] 05/10/25 [id number] Interse VIS Given Date VIS Provided VIS Publication Date 09/23/24 Single Vaccine 21 Eligibility Eligibility Date Funding Source Not [facility] Eligible 09/23/24 Private Coding Level of Care Code Est Pt Prev Care 18-39y(42286) Diagnoses Annual physical exam Z00.00 Graves disease E05.00 Postsurgical hypothyroidism E89.0 Obesity (BMI 30.0-34.9) E66.9 Assessment & Plan Assessment & Plan (1) Annual physical exam: Code(s): Z00.00 - Encounter for general adult medical examination without abnormal findings Category: Medical Plan: Patient is advised to eat healthy, keep well hydrated, keep active and have adequate sleep. (2) Graves disease: Comment: Status post thyroidectomy total Dr. Jackson April 2023 Code(s): E05.00 - Thyrotoxicosis with diffuse goiter without thyrotoxic crisis or storm Category: Medical Plan: Patient has seen endocrinology and continuing to monitor (3) Postsurgical hypothyroidism: Code(s): E89.0 - Postprocedural hypothyroidism Category: Medical Plan: Continue with thyroid medication 175 mcg once a day blood work 08/30/2024 (4) Obesity (BMI 30.0-34.9): Code(s): E66.9 - Obesity, unspecified Category: Medical Plan: Diet and exercise Orders: Orders Lipid Panel Today E78.00 - Pure hypercholesterolemia, unspecified, K21.9 - Gastro-esophageal reflux disease without esophagitis UA CC w/rflx Micro + Cult 3 Months K21.9 - Gastro-esophageal reflux disease without esophagitis, R30.0 - Dysuria Influenza [id number] Immunization Today Z23 - Encounter for immunization Complete Blood Count Auto Diff Today K21.9 - Gastro-esophageal reflux disease without esophagitis Comprehensive Met. Panel Today K21.9 - Gastro-esophageal reflux disease without esophagitis Vitamin B12 and Folate Today K21.9 - Gastro-esophageal reflux disease without esophagitis Vitamin D 25-OH Total Today K21.9 - Gastro-esophageal reflux disease without esophagitis Hemoglobin A1c Today K21.9 - Gastro-esophageal reflux disease without esophagitis
[2024-09-23 13:29] VITALS: BP 118/70; PULSE 75; O2SAT 98; BMI 33.6
== END 2024-09-23 13:54 | disposition home or self-care (01) ==
PROVIDERS: PCP Internal Medicine; Visit Provider Internal Medicine
DX: Z00.00 Encounter for general adult medical examination without abnormal findings (principal); E05.00 Thyrotoxicosis with diffuse goiter without thyrotoxic crisis or storm; E66.9 Obesity, unspecified; Z68.33 Body mass index [BMI] 33.0-33.9, adult; E89.0 Postprocedural hypothyroidism; Z23 Encounter for immunization

== ENCOUNTER → 2024-09-23 13:19 | Outpatient (BNVA) | payer OTHER, SELFPAY | PROVIDERS: PCP Internal Medicine; Visit Provider Internal Medicine | DX: Z00.00 Encounter for general adult medical examination without abnormal findings (principal); Z23 Encounter for immunization; E05.00 Thyrotoxicosis with diffuse goiter without thyrotoxic crisis or storm; E89.0 Postprocedural hypothyroidism; E66.9 Obesity, unspecified | CPT/HCPCS: 90471; 90656; 96127; 99395 ==

== ENCOUNTER 2024-09-29 11:42 | Outpatient (REF) | payer OTHER, SELFPAY ==
[2024-09-29 13:22] LABS: MANUAL DIFF FLAG NO
[2024-09-29 13:57] LABS: Basophils Percent Auto 0.3 % (0-2); Hematocrit 38.6 % (37.0-47.0); Hemoglobin 11.9 g/dl (12.0-16.0); Imm Gran Abs Auto 0.03 X10*3/uL (0.00-0.03); Imm Gran Pct Auto 0.3 % (0.0-0.4); Lymphocytes Absolute Auto 1.6 X10*3/uL (1.2-4.9); Lymphocytes Percent Auto 15.6 % (20-40); Mean Corpuscular HGB Conc 30.8 g/dl (31.0-35.0); Mean Corpuscular Hemoglobin 22.9 pg (27.0-33.0); Mean Corpuscular Volume 74.4 fL (80.0-98.0); Mean Platelet Volume 10.5 fL (9.4-12.3); Monocytes Absolute Auto 0.3 X10*3/uL (0.1-1.2); Monocytes Percent Auto 2.6 % (2-11); Neutrophils Absolute Auto 8.5 x10*3/uL (2.0-8.3); Neutrophils Percent Auto 81.2 % (45-73); Platelet Count 435 X10*3/uL (160-400); Red Blood Count 5.19 X10*6/uL (4.20-5.50); Red Cell Distribution Width 15.8 % (11.0-16.0); White Blood Count 10.4 X10*3/uL (4.8-10.8)
[2024-09-29 14:10] LABS: Estimated Average Glucose 103 mg/dL; Hemoglobin A1C 105.9505 umol/L; Hemoglobin A1c % 5.2 % (<6.0); Total Hemoglobin (HGBA1C) 3153.5667 umol/L
[2024-09-29 14:30] LABS: Alanine Aminotransferase 21 U/L (0-31); Albumin Level 4.5 g/dL (3.5-5.0); Alkaline Phosphatase 90 U/L (39-117); Anion Gap 10 (12-20); Aspartate Amino Transferase 17 U/L (5-31); Bilirubin Total 0.2 mg/dL (0.0-1.0); Blood Urea Nitrogen 12 mg/dL (9-16); Calcium 10.1 mg/dL (8.4-10.2); Carbon Dioxide 25 mmol/L (22-29); Chloride 108 mmol/L (96-108); Cholesterol 191 mg/dL (<200); Estimated Glomerular Filt Rate > 60; Glucose Random 98 mg/dL (60-115); HDL Cholesterol 63 mg/dL (>40); LDL Cholesterol Calculated 120 mg/dL (<100); Sodium 139 mmol/L (135-145); Total Protein 8.9 g/dL (6.5-8.0); Triglycerides 40 mg/dL (<150); Vitamin D 25-OH Total 17.6 ng/mL (>30)
[2024-09-29 14:49] LABS: Folate 10.3 ng/mL (> or = 4.0); Vitamin B12 380 pg/mL (200-900)
== END 2024-09-29 11:43 | disposition home or self-care (01) ==
LOC: HO.HMGCLDS 11:42
PROVIDERS: PCP Internal Medicine; Visit Provider Internal Medicine
DX: E78.00 Pure hypercholesterolemia, unspecified (principal); K21.9 Gastro-esophageal reflux disease without esophagitis
CPT/HCPCS: 36415; 80053; 80061; 82306; 82607; 82746; 83036; 85025

== ENCOUNTER 2024-12-24 14:37 | Outpatient (REF) | payer OTHER, SELFPAY ==
--- OUTSIDE RECORDS SUMMARY | 2024-12-24 14:41 | XMS_ITS | Clinical Summary ---
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 Immunizations Name Administration Dates Next Due DTAP (DAPTACEL),5 PERTUSSIS ANTIGENS ,05/27/2000,01/16/1999,1997 HEP B, PED/ADOL 01/16/1999,1998,1998 HPV, QUADRIVALENT 06/24/2015,10/27/2011,03/19/20 11 Hep A, Ped/adol, 2 Dose 06/24/2015 Hib (PRP-T) 07/23/2002, 0,01/16/1999,1997 IPV 09/24/2001, 0,01/16/1999,1997 MENINGOCOCCAL MCV4P (MENACTRA) 10/09/2012 MMR (MMR II/Priorix) 07/23/2002,06/27/2000 PNEUMOCOCCAL CONJUGATE PCV 7 04/01/2002 TDAP 10/09/2012 Varicella, Live Vaccine 12/02/2013,09/07/2001 Social History Tobacco Use Types Packs/Day Years Used Date Smoking Tobacco: Never Alcohol Use Standard Drinks/Week Comments No 0 (1 standard drink = 0.6 oz pur e alcohol) Comments No Sex and Gender Information Value Date Recorded Sex Assigned at Not on file Legal Sex Female 12:12 PM PDT Gender Identity Not on file Sexual Orientation Not on file Last Filed Vital Signs Vital Sign Reading Time Taken Comments Blood Pressure 118/70 06/24/2015 10:03 AM EDT Pulse 100 06/24/2015 10:03 AM EDT Temperature 36.9 ??C (98.5 ??F) 06/24/2015 10:03 AM E DT Respiratory Rate 24 06/24/2015 10:03 AM EDT Oxygen Saturation - - Inhaled Oxygen Concentration - - Weight 71.7 kg (158 lb) 06/24/2015 10:03 AM EDT Height 165.7 cm (5' 5.25 ) 06/24/2015 10:03 AM E DT Body Mass Index 26.09 06/24/2015 10:03 AM EDT Plan of Treatment Not on file Insurance [facility] Member Subscriber Plan / Payer ( fective 2014-Present) Name:Laura Han Relation to Subscriber:Self Name:Laura Han Payer ID:[id number] Group ID:Not on file Type:Medicaid Address: [facility] [id number] [place] [address] [facility] Care Teams Adoption Social Worker Relationship Specialty Start Date End Date Rosanna Garcia PA-C [address] [place] [address] PCP - General FAMILY MEDICINEPAT 11/19/23
--- OUTSIDE RECORDS SUMMARY | 2024-12-24 14:41 | XMS_ITS ---
Author Name [facility] Organization Unknown History of Medication Use Medication Directions Dispensed Refills Start Date End Date Stat us propranoloL (INDERAL) 10 mg tablet Take 10 mg by mouth in the morning and 10 mg at noon and 10 mg before bedtime. 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
--- OUTSIDE RECORDS SUMMARY | 2024-12-24 14:41 | XMS_ITS | Clinical Summary ---
Author Organization [facility] Address [address] [place] [address] Care Team Providers Care Video Production Specialist Name Role Phone Pcp, No MD Primary Care Provider Unavailabl e Allergies No known active allergies Medications methIMAzole (TAPAZOLE) 10 mg tablet 10/11/2022 Active propranoloL (INDERAL) 10 mg tablet Take 10 mg by mouth in the morning and 10 mg at noon and 10 mg before bedtime. Active Active Problems No known active problems Family History Medical History Relation Comments Diabetes Neg Hx Glaucoma Neg Hx Macular degeneration Neg Hx Social History Tobacco Use Types Packs/Day Years Used Date Smoking Tobacco: Never Smokeless Tobacco: Never Tobacco Cessation:Counseling Given: Not Answered Comments Unknown Sex and Gender Information Value Date Recorded Sex Assigned at Not on file Legal Sex Female 12:42 PM EDT Gender Identity Not on file Sexual Orientation Not on file Plan of Treatment Health Maintenance Due Date Last Done Comments HIV Screening 1998 HPV Vaccines (1 - 3-dose series) 2013 Hepatitis C Screening 2016 Hepatitis B Vaccines (1 of 3 - 19+ 3-dose series) 2017 Pap Smear 2019 COVID-19 Vaccine (3 - 2023-2 5 season) 2024 11/07/2021, 09/12/2021 Influenza Vaccine (#1) 2024 , 09/12/2021 DTaP,Tdap,and Td Vaccines (2 - Td or Tdap) 11/07/2031 11/07/2021 Zoster Vaccines (1 of 2) 2048 MMR Vaccines Aged Out 01/08/2022 No longer eligi ble based on patient's age to complete this topic Hepatitis A Vaccines Aged Out No long er eligible based on patient's age to complete this topic Meningococcal Vaccine Aged Out No diane dominga eligible based on patient's age to complete this topic Pneumococcal Vaccine: Pediatrics (0 to 5 Years) and At-Risk Patients (6 to 64 Years) Aged Out No longer eligible b ased on patient's age to complete this topic [place] [address] [address] Care Teams Video Production Specialist Relationship Specialty Start Date End Date Joanie Arndt MD [address] [phone] PCP - General Internal Medicine 10/05/22
[2024-12-24 15:08] LABS: Appearance Urine Clear; Color Urine Yellow; Glucose Urine UA Negative (Negative); Leukocyte Esterase Urine Trace (Negative); Nitrite Urine Negative (Negative); Specific Gravity - Urine >= 1.030 (1.005-1.025); UMIC TRIGGER UACC YES; Urine Blood Trace (Negative); Urine Ketones Negative (Negative); Urine Protein Negative (Neg-Trace)
[2024-12-24 15:10] LABS: Bacteria Urine None Seen (None Seen); Hyaline Casts Urine 0-2 /LPF (0-2); Squamous Epithelial Cell Urine 0-2 /HPF (0-2); UACC Culture Trigger YES
== END 2024-12-24 14:38 | disposition home or self-care (01) ==
LOC: HO.LAB 14:37
PROVIDERS: PCP Internal Medicine; Visit Provider Internal Medicine
DX: R30.0 Dysuria (principal); K21.9 Gastro-esophageal reflux disease without esophagitis
CPT/HCPCS: 81001; 87086; 87088; 87186

== ENCOUNTER 2024-12-28 15:32 | Outpatient (AMB) | payer OTHER, SELFPAY ==
[2024-12-28 15:33] VITALS: BP 128/82; PULSE 79; O2SAT 98; BMI 34.8
--- NOTE | 2024-12-28 15:33 | MHC.PC.OV ---
Vital Signs 12/28/24 15:33 Height 5 ft 4 in Weight 203 lb BMI 34.8 BP 128/82 Blood Pressure Location Lt brachial Position Sitting Pulse 79 Pulse Source Pulse Oximeter Pulse Oximetry (%) 98 Oxygen Delivery Method Room Air Intake Visit Reasons: hx of gestational DM, Allergies No Known Allergies [No Known Allergies*] Allergy (Verified 12/28/24 15:33) Tobacco use date assessed: 12/28/24 Dental Screening Dental Screen Date: 12/28/24 Did you have a dental visit in the last 12 months?: Yes Did you have a dental problem in the last 6 months where you did not have access to dental care?: No Was dental information given to patient?: Patient has dentist HPI hx of gestational DM, HPI Details The patient is a 24-year-old female presenting with a follow-up appointment for recent pneumonia and management of chronic conditions. She was last seen on September 23 for a physical examination. Recently, she has been diagnosed with pneumonia, initially presented with a cough, and was subsequently treated in the emergency room with Zithromax (Azithromycin). The patient has a history of obesity and seven-pound weight gain since September. She has a chronic history of Gastroesophageal Reflux Disease (GERD), Graves' disease, and postsurgical hypothyroidism for which she is on thyroid medication. A thyroid function test conducted in August was normal. The patient reported good blood pressure control and had blood work in September showing mild anemia with hemoglobin at 11.9 g/dL and microcytosis. Other lab parameters were within normal limits: normal blood sugar levels, sodium, and potassium levels, good renal and liver function, and cholesterol LDL levels at 120 mg/dL. However, Vitamin D was found to be low. Recently, a urinalysis indicated an infection, for which she was prescribed nitrofurantoin. There were no current reports of cough, and the patient was advised on the importance of vaccinations amid the ongoing flu and COVID-19 season. The patient continues to manage her condition with lifestyle modifications including increased water intake and maintaining an active lifestyle. [facility] Medical History Vitamin D deficiency Graves' eye disease Graves disease Hyperthyroidism Scalp cyst Menorrhagia Hx gestational diabetes Cervical cancer screening Family history of diabetes mellitus (DM) History of spontaneous Elevated blood pressure reading Surgical History History of thyroidectomy History of H/O dilation and curettage Family History Mother Hypertension Father No problems noted. Brother No problems noted. Sister No problems noted. Daughter No problems noted. Maternal Grandmother Alcohol abuse Hypertension Thyroid disease Maternal Grandfather Hypertension Myocardial infarct Maternal Aunt Ovarian cancer Other No significant medical problems Social History (Updated 09/23/24 @ 13:40 by Dwayne Mckinley MD) Housing: Apartment Alcohol intake: never Patient Tobacco Use Status: Never used Tobacco Tobacco use type: Cigarette Years Smoked: weed e-Cigarette/Vaping Use: Never Used Second Hand Smoke Exposure: No Substance Use Type: Marijuana Current occupational status: unemployed Gender identity: Female Cognitive needs: No Hearing needs: No Vision needs: Yes Female Reproductive History Menstrual Age of Menarche: 12 Questionnaire PHQ-9 Over the last 2 weeks, how often have you been bothered by any of the following problems? 1. Little interest or pleasure in doing things: not at all 2. Feeling down, depressed, or hopeless: not at all 3. Trouble falling or staying asleep, or sleeping too much: not at all 4. Feeling tired or having little energy: not at all 5. Poor appetite or overeating: several days 6. Feeling bad about yourself - or that you are a failure or have let yourself or your family down: not at all 7. Trouble concentrating on things, such as reading the newspaper or watching television: not at all 8. Moving or speaking so slowly that other people could have noticed. Or the opposite - being so fidgety or restless that you have been moving around a lot more than usual: not at all 9. Thoughts that you would be better off or of hurting yourself in some way: not at all Total score: 1 Source: Developed by Drs. Mark Barton, Anika Randle, Refugio Arambula and colleagues, with an educational pushpa from [employer]. Thrive Questionnaire Date Thrive assessed: 12/28/24 I am a: Patient What is your living situation today?: I have a steady place to live Within the past 12 months, did the food you bought not last and you didn't have the money to get more?: Sometimes True Within the past 12 months, did you worry whether your food would run out before you got money to buy more?: Never true Do you have trouble paying for medicines?: No Do you have trouble getting transportation to medical appointments?: No Do you have trouble paying your heating and electricity bill?: No Do you have trouble taking care of your child, family member or friend?: No Do you have trouble with day-to-day activities such as bathing, preparing meals, shopping, managing finances, etc.?: No Are you currently unemployed and looking for a job?: No Are you interested in more education?: Yes Please select the resources that you would like help with: None Currently or been in a relationship where the following occur: No concerns reported THRIVE Score: 1 AUDIT C Alcohol Use Questionnaire (AUDIT-C) 3. How often do you have six or more drinks on one occasion?: Never Total Score: 0 HARSHAL-7 AMB Questionnaire HARSHAL-7 Date HARSHAL - 7 assessed: 12/28/24 Feeling nervous, anxious, or on edge: 0 = Not at all Not being able to stop or control worryin = Not at all Worrying too much about different things: 0 = Not at all Trouble relaxin = Not at all Being so restless that it is hard to sit still: 0 = Not at all Becoming easily annoyed or irritable: 0 = Not at all Feeling afraid as if something awful might happen: 0 = Not at all Total HARSHAL-7 score (0-4 normal; 5-9 mild; 10-14 moderate; 15-21 severe): 0 Source: Developed by Drs. Mark Barton, Anika Randle, Refugio Arambula and colleagues, with an educational pushpa from [employer]. Physical exam (Primary Care) Vital Signs: Last Vital Signs Pulse 79 12/28/24 15:33 BP 128/82 12/28/24 15:33 Pulse Ox 98 12/28/24 15:33 Oxygen Delivery Method Room Air 12/28/24 15:33 BMI result Body Mass Index 34.8 Tobacco/Smoking Status: Tobacco use Status Tobacco use date assessed 12/28/24 12/28/24 15:34 Patient Tobacco Use Status Never used Tobacco 12/28/24 15:34 Tobacco use type Cigarette 12/28/24 15:34 e-Cigarette/Vaping Use Never Used 12/28/24 15:34 PHQ-9: PHQ-9 Score PHQ-9: Total score 1 12/28/24 15:34 Thrive Assessment: Date of Thrive Assessment Date Thrive assessed 12/28/24 12/28/24 15:34 Currently or been in a relationship where the following occur: No concerns reported Const General: alert; No acute distress Eyes Conjunctivae: conjunctivae normal Resp Auscultation: clear to auscultation bilaterally Cardio Rate: regular rate Rhythm: regular rhythm GI Inspection: Yes normal to inspection Extrem General: Yes normal to inspection and No edema Coding Level of Care Code Est Pt Level 4 (03985) Diagnoses UTI (urinary tract infection) N39.0 Postsurgical hypothyroidism E89.0 Obesity (BMI 30.0-34.9) E66.9 GERD (gastroesophageal reflux disease) K21.9 Assessment & Plan Assessment & Plan (1) UTI (urinary tract infection): Code(s): N39.0 - Urinary tract infection, site not specified Category: Medical Plan: Patient has been treated with nitrofurantoin (2) Postsurgical hypothyroidism: Code(s): E89.0 - Postprocedural hypothyroidism Category: Medical Plan: Continue with thyroid medication October last test (3) Obesity (BMI 30.0-34.9): Code(s): E66.9 - Obesity, unspecified Category: Medical Plan: Diet and exercise (4) GERD (gastroesophageal reflux disease): Code(s): K21.9 - Gastro-esophageal reflux disease without esophagitis Category: Medical Plan: Avoid the foods that causes that usually spicy foods, tomato products, juices, coffee, soda and foods that your sensitive to. After eating do not lie down, allow 3-4 hours before in lie down. And keep the head of bed above 30 degrees to avoid the acid from going up. Plan - Continuation of thyroid medication for postsurgical hypothyroidism to maintain normal thyroid function. - Patients to complete the course of nitrofurantoin to address the urinary tract infection. - Monitor anemia with the consideration of dietary modifications or possible supplementation given the mild condition. - Monitor and manage ongoing GERD symptoms with lifestyle modifications and medications as necessary. - Conduct periodic follow-up to reassess pneumonia recovery post-Zithromax treatment. - Maintain regular monitoring of blood work, with fasting required for glucose and cholesterol assessments, not urgent but to be done for ongoing management of obesity and cholesterol levels. - Encourage continued adherence to vaccinations, including COVID-19 and influenza, for preventative care. - Advisement on lifestyle changes including weight management, increasing physical activity, maintaining adequate hydration, and encouraging a healthy diet to address obesity. Orders: Orders Comprehensive Met. Panel Today E89.0 - Postprocedural hypothyroidism Free T4 (Free Thyroxine) Today E89.0 - Postprocedural hypothyroidism Lipid Panel Today E78.00 - Pure hypercholesterolemia, unspecified, E89.0 - Postprocedural hypothyroidism Vitamin B12 and Folate Today E89.0 - Postprocedural hypothyroidism Vitamin D 25-OH Total Today E89.0 - Postprocedural hypothyroidism Complete Blood Count Auto Diff Today E89.0 - Postprocedural hypothyroidism Thyroid Stimulating Hormone Today E89.0 - Postprocedural hypothyroidism Hemoglobin A1c Today E89.0 - Postprocedural hypothyroidism
--- OUTSIDE RECORDS SUMMARY | 2024-12-28 15:34 | XMS_ITS | Clinical Summary ---
Author Organization [facility] Address [address] [place] [address] Care Team Providers Care Appraiser Land Name Role Phone Pcp, No MD Primary [...] patient's age to complete this topic [place] [address] [place] [address] Care Teams Appraiser Land Relationship Specialty Start Date End Date Joanie Arndt MD [address] [phone] PCP - General Internal Medicine 10/05/22
== END 2024-12-28 17:21 | disposition home or self-care (01) ==
PROVIDERS: PCP Internal Medicine; Visit Provider Internal Medicine
DX: N39.0 Urinary tract infection, site not specified (principal); E89.0 Postprocedural hypothyroidism; E66.9 Obesity, unspecified; Z68.34 Body mass index [BMI] 34.0-34.9, adult; K21.9 Gastro-esophageal reflux disease without esophagitis

== ENCOUNTER → 2024-12-28 15:32 | Outpatient (BNVA) | payer OTHER, SELFPAY | PROVIDERS: PCP Internal Medicine; Visit Provider Internal Medicine | DX: N39.0 Urinary tract infection, site not specified (principal); E89.0 Postprocedural hypothyroidism; E66.9 Obesity, unspecified; K21.9 Gastro-esophageal reflux disease without esophagitis | CPT/HCPCS: 99212 ==

== ENCOUNTER 2025-01-14 12:07 | Outpatient (REF) | payer OTHER, SELFPAY ==
[2025-01-14 12:25] LABS: MANUAL DIFF FLAG NO
[2025-01-14 14:36] LABS: Basophils Absolute Auto 0.1 X10*3/uL (0.0-0.2); Eosinophils Absolute Auto 0.1 X10*3/uL (0.0-0.4); Eosinophils Percent Auto 0.6 % (0-4); Hematocrit 37.3 % (37.0-47.0); Hemoglobin 11.2 g/dl (12.0-16.0); Imm Gran Abs Auto 0.03 X10*3/uL (0.00-0.03); Imm Gran Pct Auto 0.3 % (0.0-0.4); Lymphocytes Absolute Auto 2.6 X10*3/uL (1.2-4.9); Lymphocytes Percent Auto 26.6 % (20-40); Mean Corpuscular Hemoglobin 22.4 pg (27.0-33.0); Mean Corpuscular Volume 74.5 fL (80.0-98.0); Mean Platelet Volume 10.5 fL (9.4-12.3); Monocytes Absolute Auto 0.4 X10*3/uL (0.1-1.2); Monocytes Percent Auto 3.7 % (2-11); Neutrophils Absolute Auto 6.7 x10*3/uL (2.0-8.3); Neutrophils Percent Auto 67.8 % (45-73); Platelet Count 416 X10*3/uL (160-400); Red Blood Count 5.01 X10*6/uL (4.20-5.50); Red Cell Distribution Width 16.6 % (11.0-16.0); White Blood Count 9.8 X10*3/uL (4.8-10.8)
--- OUTSIDE RECORDS SUMMARY | 2025-01-14 14:40 | XMS_ITS | Clinical Summary ---
Author Organization [facility] Address [address] [place] [address] Care Team Providers Care Contracts Representative Name Role Phone Pcp, No MD Primary [...] patient's age to complete this topic Insurance [place] [address] Care Teams Contracts Representative Relationship Specialty Start Date End Date Joanie Arndt MD [address] [phone] PCP - General Internal Medicine 10/05/22
--- OUTSIDE RECORDS SUMMARY | 2025-01-14 14:40 | XMS_ITS | Clinical Summary ---
Author Organization [facility] Address [address] [place] [address] Care Team Providers Care Folder Stitcher Operator Name Role Phone Rosanna Garcia PA-C Primary [...] Plan of Treatment Not on file Insurance [facility] Member Subscriber Plan / Payer ( fective 2014-Present) Name:Laura Han Relation to Subscriber:Self Name:Laura Han Payer ID:[id number] Group ID:Not on file Type:Medicaid Address: [facility] [id number] [place] [address] [facility] Care Teams Folder Stitcher Operator Relationship Specialty Start Date End Date Rosanna Garcia PA-C [address] [place] [address] PCP - General FAMILY MEDICINEPAT 11/19/23
[2025-01-14 14:53] LABS: Appearance Urine Clear; Color Urine Yellow; Glucose Urine UA Negative (Negative); Leukocyte Esterase Urine Negative (Negative); Nitrite Urine Negative (Negative); Specific Gravity - Urine 1.015 (1.005-1.025); UMIC TRIGGER UACC YES; Urine Blood Trace (Negative); Urine Ketones Negative (Negative); Urine Protein Negative (Neg-Trace)
[2025-01-14 14:56] LABS: Bacteria Urine None Seen (None Seen); Hyaline Casts Urine 0-2 /LPF (0-2); RBC Urine 0-2 /HPF (0-2); Squamous Epithelial Cell Urine 0-2 /HPF (0-2); WBC Urine 0-5 /HPF (0-5)
[2025-01-14 15:25] LABS: Alanine Aminotransferase 26 U/L (0-31); Albumin Level 4.2 g/dL (3.5-5.0); Alkaline Phosphatase 95 U/L (39-117); Anion Gap 12 (12-20); Aspartate Amino Transferase 20 U/L (5-31); Bilirubin Total 0.3 mg/dL (0.0-1.0); Blood Urea Nitrogen 9 mg/dL (9-16); Calcium 9.1 mg/dL (8.4-10.2); Carbon Dioxide 25 mmol/L (22-29); Chloride 105 mmol/L (96-108); Cholesterol 180 mg/dL (<200); Estimated Glomerular Filt Rate > 60; Glucose Random 75 mg/dL (60-115); HDL Cholesterol 63 mg/dL (>40); LDL Cholesterol Calculated 106 mg/dL (<100); Potassium 4.1 mmol/L (3.3-5.1); Sodium 138 mmol/L (135-145); Total Protein 8.6 g/dL (6.5-8.0); Triglycerides 59 mg/dL (<150)
[2025-01-14 15:27] LABS: Estimated Average Glucose 105 mg/dL; Hemoglobin A1c % 5.3 % (<6.0)
[2025-01-14 15:29] LABS: Free T4 (Free Thyroxine) 1.27 ng/dL (0.71-1.85); Thyroid Stimulating Hormone 0.31 uIU/mL (0.32-4.0); Vitamin D 25-OH Total 11.6 ng/mL (>30)
[2025-01-14 15:44] LABS: Folate 7.2 ng/mL (> or = 4.0); Vitamin B12 300 pg/mL (200-900)
== END 2025-01-14 12:08 | disposition home or self-care (01) ==
LOC: HO.LAB 12:07
PROVIDERS: PCP Internal Medicine; Visit Provider Internal Medicine
DX: E89.0 Postprocedural hypothyroidism (principal); E78.00 Pure hypercholesterolemia, unspecified
CPT/HCPCS: 36415; 80053; 80061; 81001; 82306; 82607; 82746; 83036; 84439; 84443; 85025

== ENCOUNTER 2025-03-31 08:20 | Outpatient (REF) | payer OTHER, SELFPAY ==
[2025-03-31 09:14] LABS: Appearance Urine Clear; Color Urine Yellow; Glucose Urine UA Negative (Negative); Leukocyte Esterase Urine Negative (Negative); Nitrite Urine Positive (Negative); Specific Gravity - Urine >= 1.030 (1.005-1.025); UMIC TRIGGER UACC YES; Urine Blood Small (1+) (Negative); Urine Ketones Trace mg/dL (Negative); Urine Protein 30 (1+) mg/dL (Neg-Trace)
[2025-03-31 09:35] LABS: Bacteria Urine 4+ (None Seen); Hyaline Casts Urine 0-2 /LPF (0-2); UACC Culture Trigger YES; WBC Urine 0-5 /HPF (0-5)
--- OUTSIDE RECORDS SUMMARY | 2025-03-31 09:40 | XMS_ITS | Clinical Summary ---
Author Organization [facility] Address [address] [place] [address] Care Team Providers Care Golf Course Designer Name Role Phone Pcp, No MD Primary [...] 5 season) 2024 11/07/2021, 09/12/2021 Influenza Vaccine (Season Ended) 2025 11/07/2021, 09/12/2021 DTaP,Tdap,and Td Vaccines (2 - Td [...] 5 Years) and At-Risk Patients (6 to 49 Years) Aged Out No longer eligible b ased on patient's age to complete this topic Insurance [place] [address] Care Teams Golf Course Designer Relationship Specialty Start Date End Date Joanie Arndt MD [address] [phone] PCP - General Internal Medicine 10/05/22
[2025-03-31 09:59] LABS: HBS Num1 > 1000.00 mIU/mL (0-7.99); HBc Num1 0.04 S/CO (0.00-0.79); HBsAGNum1 0.38 S/CO (0.00-0.99); Hepatitis B Core Antibody Nonreactive (Nonreactive); Hepatitis B Surface Antigen Negative (Negative); ~Hepatitis B Surface Antibody REACTIVE (Nonreactive); ~Hepatitis C Antibody Nonreactive (Nonreactive)
== END 2025-03-31 08:21 | disposition home or self-care (01) ==
LOC: HO.LAB 08:20
PROVIDERS: PCP Internal Medicine; Visit Provider Internal Medicine
DX: R79.89 Other specified abnormal findings of blood chemistry (principal); R30.0 Dysuria; K21.9 Gastro-esophageal reflux disease without esophagitis
CPT/HCPCS: 36415; 81001; 86704; 86706; 86803; 87086; 87088; 87186; 87340

== ENCOUNTER 2025-11-01 11:41 | Outpatient (REF) | payer OTHER, SELFPAY ==
[2025-11-01 22:36] LABS: Bacterial Vaginosis PCR POSITIVE (Negative); Candida Group PCR DETECTED (Not Detect); Candida glab krusei PCR NOT DETECTED (Not Detect); Trichomonas vaginalis PCR NOT DETECTED (Not Detect)
[2025-11-01 23:07] LABS: CT PCR NOT DETECTED (Not Detect.); NG PCR NOT DETECTED (Not Detect.)
== END 2025-11-01 11:42 | disposition home or self-care (01) ==
LOC: HO.LNP 11:41
PROVIDERS: PCP Internal Medicine; Visit Provider Advanced Practice Midwife
DX: Z01.419 Encounter for gynecological examination (general) (routine) without abnormal findings (principal); E05.00 Thyrotoxicosis with diffuse goiter without thyrotoxic crisis or storm; E89.0 Postprocedural hypothyroidism; Z30.09 Encounter for other general counseling and advice on contraception; R30.0 Dysuria; Z20.2 Contact with and (suspected) exposure to infections with a predominantly sexual mode of transmission
CPT/HCPCS: 81515; 87086; 87491; 87591; 88175

== ENCOUNTER 2025-11-01 11:41 | Outpatient (AMB) | payer OTHER, SELFPAY ==
[2025-11-01 11:44] VITALS: BP 122/74; BMI 29.6
--- NOTE | 2025-11-01 11:44 | A.OFFVIS_ITS ---
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 She stopped the control pills around Leandro. She no longer is in a long-term relationship so she decided to just stopped them her previous period was the beginning of September and then she got her last period on October 18. She is not intending to be with anybody any time soon and if she did she would use condoms and if she ever decided to go back on the pills she would call to get a refill but she does not think she needs a refill now She is on her levothyroxine which is to replace thyroid function after thyroid ectomy She has been having burning with urination and dysuria and frequency ever since she broke up with her boyfriend around Leandro. She tried to get an appointment with her primary care provider but they are unavailable till December. 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 Her mother takes care of her 4-year-old daughter when she is at work. [facility] Medical History Vitamin D deficiency Graves' eye disease Graves disease Hyperthyroidism Scalp cyst Menorrhagia Hx gestational diabetes Cervical cancer screening Family history of diabetes mellitus (DM) History of spontaneous Elevated blood pressure reading Surgical History History of thyroidectomy History of H/O dilation and curettage Family History Mother Hypertension Father No problems noted. Brother No problems noted. Sister No problems noted. Daughter No problems noted. Maternal Grandmother Alcohol abuse Hypertension Thyroid disease Maternal Grandfather Hypertension Myocardial infarct Maternal Aunt Ovarian cancer Other No significant medical problems Social History Housing: Apartment Alcohol intake: never Patient Tobacco Use Status: Never used Tobacco Tobacco use type: Cigarette Years Smoked: weed e-Cigarette/Vaping Use: Never Used Second Hand Smoke Exposure: No Substance Use Type: Marijuana Current occupational status: unemployed Gender identity: Female Cognitive needs: No Hearing needs: No Vision needs: Yes Female Reproductive History Menstrual Age of Menarche: 12 Duration of menses: 6-7 days Date of last menstrual period: 10/18/25 control method: pills Total pregnancies: 2 Number of Living Children: 1 Ab spontaneous: 1 Date of last pap smear: 04/27/22 Physical Exam Vital Signs: Last Vital Signs BP 122/74 11/01/25 11:44 BMI result Body Mass Index 29.6 Const General: healthy appearing, comfortable, no acute distress, well developed and alert Nutritional Appearance: average body habitus Orientation/consciousness: patient oriented x3 Limitations: no limitations HEENT Head: Yes normocephalic Neck Neck: Yes normal visual inspection Chest Chest palpation & inspection: normal inspection of the chest Breast/axilla inspection: normal inspection of the breasts and normal inspection of the axillae Breast/axilla palpation: normal palpation of the breasts and normal palpation of the axillae Resp Effort & Inspection: normal respiratory effort GI Inspection: Yes normal to inspection, No Abdominal wall edema and No distended Palpation (GI): Soft to palpation and nontender General: Yes bladder normal to palpation External Female Exam: normal external appearance and normal appearance of the urethra Speculum Exam - Vagina: normal appearance of the vagina, normal palpation and normal vaginal discharge Speculum Exam - Cervix: normal appearance of the cervix, normal palpation and nontender Bimanual exam- vagina & uterus: normal bimanual exam, normal palpation, uterine size normal, bladder normal to palpation, consistency normal, normal palpation, uterine mobility normal, uterine shape normal, No Cervical tenderness present, non-tender and no cervical motion tenderness Bimanual Exam- Adnexa, other: normal adnexae, no masses, normal and No adnexal tenderness Neuro General: patient oriented x3 Assessment & Plan Assessment & Plan (1) Cervical cancer screening: Comment: 04/26/2022 Pap is negative Code(s): Z12.4 - Encounter for screening for malignant neoplasm of cervix Category: Medical (2) Graves disease: Comment: Status post thyroidectomy total Dr. Jackson April 2023 Code(s): E05.00 - Thyrotoxicosis with diffuse goiter without thyrotoxic crisis or storm Category: Medical (3) Postsurgical hypothyroidism: Code(s): E89.0 - Postprocedural hypothyroidism Category: Medical (4) Dysuria: Code(s): R30.0 - Dysuria Category: Medical (5) control counseling: Code(s): Z30.09 - Encounter for other general counseling and advice on contraception Category: Medical Plan -----Discussed in this visit the following: healthy balanced diet, regular and consistent exercise, getting recommended health screens, doing the best she can for her particular health concerns, kegel exercises, pap smear screening and followup recommendations, mammography screening and SBE, normal changes in cycles in her life stage--- . Pap smear was done as well as testing for gonorrhea and chlamydia, trich, bacterial vaginosis and yeast. Patient did a clean-catch specimen and since it will take 3 days to results the culture and she has symptoms and Garth is coming I will treat her with a 3 day course of Bactrim so hopefully she will be feeling better by the time results would be back. She is to take the medication starting now twice a day for 3 days. The results will be resulted at Jenners time and this provider will not be working so they will not be reviewed so therefore I am treating her now I reviewed what she would do if she needed control. Firstly she would use condoms which I applauded. If she decided that she wanted to go back on the pills she would call in and we could prescribe them for her but she would need to start them with her. And I did explain this. In addition I recommend she drink lots of water and also unsweetened cranberry juice to avoid the excess fructose syrup. RTC 1 year. If she does not experience relief with the Bactrim or if she gets any worsening symptoms then I recommend she follow-up with her primary care provider.. Orders: Orders Bacterial Vaginosis Panel Today Z01.419 - Encounter for gynecological examination (general) (routine) without abnormal findings AMB Urinalysis Automated Today Z13.9 - Encounter for screening, unspecified CT NG by PCR Vag/Cerv Today Z01.419 - Encounter for gynecological examination (general) (routine) without abnormal findings Pap Smear Today Z01.419 - Encounter for gynecological examination (general) (routine) without abnormal findings Urine Culture Today R30.0 - Dysuria Medications: New sulfamethoxazole-trimethoprim 800-160 mg (Bactrim DS) 1 tab PO Q12H 6 tabs 0RF Coding Level of Care Code Est Pt Prev Care 18-39y([address]4624) Diagnoses Cervical cancer screening Z12.4 Graves disease E05.00 Postsurgical hypothyroidism E89.0 Dysuria R30.0 control counseling Z30.09
--- OUTSIDE RECORDS SUMMARY | 2025-11-01 14:59 | XMS_ITS ---
[facility] Name [facility] History of Medication Use Medication Directions Dispensed Refills Start Date End Date Stat us methIMAzole (TAPAZOLE) 10 mg tablet 10/11/2022 active propranoloL (INDERAL) 10 mg tablet Take 10 mg by mouth in the morning and 10 mg at noon and 10 mg before bedtime. 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
--- OUTSIDE RECORDS SUMMARY | 2025-11-01 14:59 | XMS_ITS | Clinical Summary ---
Author Organization [facility] Address [address] [place] [address] Care Team Providers Care Two Needle Machine Operator Name Role Phone Pcp, No MD Primary [...] Date Last Done Comments HIV Screening 1998 Hepatitis B Vaccines (1 of 3 - 19+ 3-dose series) 2017 Pap Smear 2019 HPV Vaccines (1 - 3-dose SCD M series) 2025 COVID-19 Vaccine (3 - 2024-2 6 season) 2025 11/07/2021, 09/12/2021 Influenza Vaccine (#1) 2025 , 09/12/2021 DTaP,Tdap,and Td Vaccines (2 - [...] age to complete this topic Pneumococcal Vaccine: At-Ris k and Pediatric Patients (0 to 49 Years) Aged Out No longer eligible b ased on patient's age to complete this topic [place] [address] [address] [place] [address] Care Teams Two Needle Machine Operator Relationship Specialty Start Date End Date Joanie Arndt MD [address] [place] [address] PCP - General Internal Medicine 10/05/22
== END 2025-11-01 12:15 | disposition home or self-care (01) ==
LOC: HO.HWS 11:41
PROVIDERS: PCP Internal Medicine; Visit Provider Advanced Practice Midwife
DX: Z01.419 Encounter for gynecological examination (general) (routine) without abnormal findings (principal); E05.00 Thyrotoxicosis with diffuse goiter without thyrotoxic crisis or storm; E89.0 Postprocedural hypothyroidism; R30.0 Dysuria; Z30.09 Encounter for other general counseling and advice on contraception; Z13.9 Encounter for screening, unspecified
CPT/HCPCS: 99395; 99459